=== PATIENT | female | born 1940 | race Caucasian/White ===

== ENCOUNTER → 2016-10-27 | Outpatient (REF) | payer BC, MEDICARE ==
[2016-10-27 12:35] LABS: ALBUMIN 3.7 GM/DL (3.2-5.2); ALBUMIN/GLOBULIN RATIO 1.06 (1.00-1.93); BILIRUBIN,TOTAL 0.4 MG/DL (0.2-1.0); CALCIUM LEVEL 8.4 MG/DL (8.8-10.2); CREATININE FOR GFR 1.05 MG/DL (0.55-1.02); GLOMERULAR FILTRATION RATE 54.5 (>39); POTASSIUM SERUM 4.4 MEQ/L (3.5-5.1); TOTAL PROTEIN 7.2 GM/DL (6.4-8.2)
== END ==
LOC: M SFHCPLAZ 09:58
PROVIDERS: ATTEND Internal Medicine
DX: I10 Essential (primary) hypertension (principal); E78.00 Pure hypercholesterolemia, unspecified; E03.9 Hypothyroidism, unspecified

== ENCOUNTER → 2016-11-26 | Outpatient (CLI) | payer BC, MEDICARE ==
--- NOTE | 2016-11-26 15:21 | REPMRS ---
Patient History The patient states she has not had a clinical breast exam in over a year. Baseline Mammogram Patient is postmenopausal. No known family history of cancer. Digital Woman Screen Mammo: November 26, 2016 - Exam #: [id number] Bilateral CC and MLO view(s) were taken. Technologist: Jeanie Holland, Technologist FINDINGS: There are scattered fibroglandular densities. There is no evidence of dominant mass, architectural distortion, or clustered microcalcification typical of malignancy. ASSESSMENT: BI-RADS/ACR category 1 mammogram. Negative. Recommendation Routine screening mammogram of both breasts in 1 year (for women over age 40). This mammogram was interpreted with the aid of an FDA-approved computer-aided dectection system. Electronically Signed By: Stephon Christensen MD 11/26/16 [id number]
--- NOTE | 2016-11-30 10:16 | DEXA ---
AP SPINE L1 - L4 1.336 1.1 2.9 LT FEMUR TOTAL 0.907 -0.8 0.9 RT FEMUR TOTAL 0.964 -0.3 1.3 TOTAL BODY TOTAL OTHER DUAL FEMUR FRAX* ASSESSMENT Risk factors: History of fracture (adult). 10 year probability of fracture Major osteoporotic fracture 16.3 % Hip fracture 3.2 % COMMENTS: Normal bone densitometry of the spine. There is low bone density of the hips. The density of the spine has increased 18.4% since 04/04/2004. The density of the left hip has decreased 2.5% since 04/04/2004. The density of the right hip has decreased 0.2% since 04/04/2004. FOLLOW-UP: Recommendation for the next bone density exam: 2 years. [facility]
== END ==
LOC: M WHC 13:05
PROVIDERS: ATTEND Internal Medicine
DX: Z12.31 Encounter for screening mammogram for malignant neoplasm of breast (principal); Z13.820 Encounter for screening for osteoporosis; M85.9 Disorder of bone density and structure, unspecified; Z78.0 Asymptomatic menopausal state
CPT/HCPCS: 77080; G0202

== ENCOUNTER → 2017-10-19 | Outpatient (REF) | payer BC, MEDICARE ==
[2017-10-19 15:52] LABS: HEMOGLOBIN 12.1 g/dl (12.0-15.5); MEAN CORPUSCULAR HEMOGLOBIN 30.2 pg (27.0-33.0); MEAN CORPUSCULAR HGB CONC 31.8 g/dl (32.0-36.5); MEAN CORPUSCULAR VOLUME 94.8 fl (80.0-96.0); PLATELET COUNT, AUTOMATED 222 10^3/uL (150-450); RED BLOOD COUNT 4.01 10^6/uL (4.00-5.40); RED CELL DISTRIBUTION WIDTH 12.7 % (11.5-14.5); WHITE BLOOD COUNT 6.7 10^3/uL (4.0-10.0)
[2017-10-19 16:46] LABS: ALBUMIN/GLOBULIN RATIO 1.11 (1.00-1.93); ALKALINE PHOSPHATASE 86 U/L (45-117); ALT/SGPT 15 U/L (12-78); ANION GAP 7 MEQ/L (8-16); AST/SGOT 12 U/L (7-37); BILIRUBIN,TOTAL 0.5 MG/DL (0.2-1.0); BLOOD UREA NITROGEN 24 MG/DL (7-18); CALCIUM LEVEL 8.8 MG/DL (8.8-10.2); CARBON DIOXIDE LEVEL 29 MEQ/L (21-32); CHLORIDE LEVEL 102 MEQ/L (98-107); CHOLESTEROL LEVEL 222 MG/DL (<200); CHOLESTEROL RISK RATIO 4.723 (<5); CREATININE FOR GFR 1.28 MG/DL (0.55-1.30); GLOMERULAR FILTRATION RATE 43.3 (>39); GLUCOSE, FASTING 85 MG/DL (70-100); HDL CHOLESTEROL 47 MG/DL (>40); LDL CHOLESTEROL 145.2 MG/DL (<100); MAGNESIUM LEVEL 2.4 MG/DL (1.8-2.4); NON-HDL-C 175 MG/DL; POTASSIUM SERUM 4.1 MEQ/L (3.5-5.1); SODIUM LEVEL 138 MEQ/L (136-145); TOTAL PROTEIN 7.6 GM/DL (6.4-8.2); TRIGLYCERIDES LEVEL 149 MG/DL (<150)
== END ==
LOC: M SFHCPLAZ 13:00
DX: J30.2 Other seasonal allergic rhinitis (principal); I10 Essential (primary) hypertension; E78.00 Pure hypercholesterolemia, unspecified; E03.9 Hypothyroidism, unspecified
CPT/HCPCS: 83735

== ENCOUNTER → 2017-10-21 | Outpatient (CLI) | payer BC, MEDICARE | LOC: M LRY 15:53 | DX: M51.36 Other intervertebral disc degeneration, lumbar region (principal) | CPT/HCPCS: 72110 ==

== ENCOUNTER → 2017-11-03 | Outpatient (CLI) | payer BC, MEDICARE ==
[~2017-11-03] MED LIST: GASTROGRAFIN SOLUTION 30ML (Q9963) As Ordered; ISOVUE-370 76% 100ML VIAL (Q9967) As Ordered
== END ==
LOC: M RAD 13:05
DX: R14.0 Abdominal distension (gaseous) (principal); R19.4 Change in bowel habit; M54.5 Low back pain; R59.0 Localized enlarged lymph nodes
CPT/HCPCS: Q9963

== ENCOUNTER 2017-12-20 10:59 | Day surgery (SDC) | payer BC ==
[2017-12-20] MEDS ORDERED: LIDOCAINE 2% INJ 100 MG/5 ML SDV (FOR ANES.) As Ordered (11:03)
[2017-12-20] MEDS ORDERED: NS 1,000 ML IV (12:00)
[2017-12-20] MEDS ORDERED: fentaNYL 100 MCG/2 ML INJECTION (J3010) As Ordered (12:11)
[2017-12-20] MEDS ORDERED: PROPOFOL 200 MG/20 ML VIAL As Ordered ×2 (12:12)
== END 2017-12-20 13:34 | disposition home or self-care (01) ==
LOC: M OPP 10:59
DX: D49.0 Neoplasm of unspecified behavior of digestive system (principal); K56.690 Other partial intestinal obstruction; R19.5 Other fecal abnormalities; R93.3 Abnormal findings on diagnostic imaging of other parts of digestive tract; R19.4 Change in bowel habit; R12 Heartburn; K31.89 Other diseases of stomach and duodenum; I10 Essential (primary) hypertension; E03.9 Hypothyroidism, unspecified; Z79.82 Long term (current) use of aspirin; Z79.899 Other long term (current) drug therapy; Z88.8 Allergy status to other drugs, medicaments and biological substances; Z86.718 Personal history of other venous thrombosis and embolism; Z90.89 Acquired absence of other organs; Z78.0 Asymptomatic menopausal state; Z80.51 Family history of malignant neoplasm of kidney; Z82.49 Family history of ischemic heart disease and other diseases of the circulatory system
CPT/HCPCS: 45380

== ENCOUNTER → 2018-01-11 | Outpatient (REF) | payer BC, MEDICARE ==
[2018-01-11 18:35] LABS: BASO # 0.1 10^3/uL (0.0-0.2); EOS # 1.2 10^3/uL (0.0-0.50); EOS % 13.9 % (0.0-3.0); HEMATOCRIT 38.2 % (36.0-47.0); HEMOGLOBIN 12.2 g/dl (12.0-15.5); IMMATURE GRANULOCYTE % 0.2 % (0-3.0); LYMPH # 2.1 10^3/uL (1.5-4.5); LYMPH % 23.3 % (24.0-44.0); MEAN CORPUSCULAR HEMOGLOBIN 29.4 pg (27.0-33.0); MEAN CORPUSCULAR HGB CONC 31.9 g/dl (32.0-36.5); MONO # 0.7 10^3/uL (0.0-0.8); NEUTROPHILS # 4.8 10^3/uL (1.8-7.7); NEUTROPHILS % 53.6 % (36.0-66.0); PLATELET COUNT, AUTOMATED 214 10^3/uL (150-450); RED BLOOD COUNT 4.15 10^6/uL (4.00-5.40); RED CELL DISTRIBUTION WIDTH 12.7 % (11.5-14.5); WHITE BLOOD COUNT 8.9 10^3/uL (4.0-10.0)
[2018-01-11 18:39] LABS: INR 1.05; PROTHROMBIN TIME 13.8 SECONDS (12.1-14.4)
[2018-01-11 18:40] LABS: PARTIAL THROMBOPLASTIN TIME 33.3 SECONDS (25.4-37.6)
[2018-01-11 19:21] LABS: ANION GAP 8 MEQ/L (8-16); BLOOD UREA NITROGEN 27 MG/DL (7-18); CALCIUM LEVEL 8.8 MG/DL (8.8-10.2); CARBON DIOXIDE LEVEL 31 MEQ/L (21-32); CHLORIDE LEVEL 103 MEQ/L (98-107); CREATININE FOR GFR 1.22 MG/DL (0.55-1.30); GLOMERULAR FILTRATION RATE 45.7 (>39); GLUCOSE, FASTING 74 MG/DL (70-100); POTASSIUM SERUM 3.6 MEQ/L (3.5-5.1); SODIUM LEVEL 142 MEQ/L (136-145)
== END ==
LOC: M SFHCPLAZ 15:24
DX: R35.0 Frequency of micturition (principal); Z01.818 Encounter for other preprocedural examination
CPT/HCPCS: 80048

== ENCOUNTER → 2018-01-11 | Outpatient (CLI) | payer BC | LOC: M PLARAD 10:34 | DX: C18.9 Malignant neoplasm of colon, unspecified (principal) | CPT/HCPCS: 78815 ==

== ENCOUNTER 2018-01-13 12:00 | Inpatient (IN) | payer MEDICARE, BC ==
[~2018-01-13 12:00] MED LIST changes: -GASTROGRAFIN SOLUTION 30ML (Q9963) As Ordered; -ISOVUE-370 76% 100ML VIAL (Q9967) As Ordered; +LIDOCAINE 1% MDV 20ML VIAL SQ
[2018-01-13] MEDS: LR 1,000 ML IV ×2 (13:01→18:31)
[2018-01-13] MEDS: BUPIVACAINE/EPIN 0.25% 30 ML VIAL As Ordered (13:17)
[2018-01-13] MEDS ORDERED: MIDAZOLAM INJ 2 MG/2 ML VIAL (J2250) As Ordered (13:30)
[2018-01-13] MEDS ORDERED: fentaNYL 100 MCG/2 ML INJECTION (J3010) As Ordered (13:31)
[2018-01-13] MEDS ORDERED: ROCURONIUM BROMIDE 50 MG/5 ML VIAL As Ordered ×3 (13:31→15:57)
[2018-01-13] MEDS ORDERED: KETOROLAC 60 MG/2 ML VIAL (J1885) As Ordered (13:31)
[2018-01-13] MEDS ORDERED: dexameTHASONE 4 MG/ML 1ML VIAL (J1100) As Ordered (13:31)
[2018-01-13] MEDS ORDERED: PROPOFOL 200 MG/20 ML VIAL As Ordered (13:31)
[2018-01-13] MEDS ORDERED: LIDOCAINE 2% INJ 100 MG/5 ML SDV (FOR ANES.) As Ordered (13:31)
[2018-01-13] MEDS ORDERED: ONDANSETRON 4MG/2ML VIAL (J2405) As Ordered ×3 (13:31→17:09)
[2018-01-13] MEDS: cefoTEtan DISODIUM 2 GM in D5W MINI-BAG PLUS 50 ML IV (14:16)
[2018-01-13] MEDS ORDERED: METOCLOPRAMIDE INJ 10MG/2ML VIAL (J2765) As Ordered (14:20)
[2018-01-13] MEDS ORDERED: HYDROmorphone HCL 2 MG/ML 1ML VIAL (J1170) As Ordered (14:33)
[2018-01-13] MEDS ORDERED: GLYCOPYRROLATE INJ 0.2 MG/ML 2 ML VIAL As Ordered ×2 (15:40)
[2018-01-13] MEDS ORDERED: NEOSTIGMINE 10 MG/10 ML VIAL (J2710) As Ordered (15:40)
[2018-01-13] MEDS: KCL 20MEQ IN D5/0.45NS 1000ML 1,000 ML IV (17:17)
[2018-01-13] MEDS ORDERED: ONDANSETRON 4MG/2ML VIAL (J2405) IV ×2 (17:30→18:00)
[2018-01-13] MEDS ORDERED: MORPHINE 4 MG/ML 1ML VIAL/SYRINGE (J2270) IV (17:30)
[2018-01-13] MEDS ORDERED: ALBUTEROL 90 MCG/ACT 8GM HFA INHALER INH (17:30)
[2018-01-13] MEDS ORDERED: NORCO, ANEXSIA 5/325MG TABLET (HYDROcodone/ACETAMINOPHEN) PO (17:30)
[2018-01-13] MEDS ORDERED: LABETALOL HCL 100 MG/20 ML VIAL As Ordered (17:36)
[2018-01-13] MEDS: hydrALAZINE INJ 20 MG/ML VIAL IV ×6 (17:40→18:15)
[2018-01-13] MEDS: LABETALOL HCL 100 MG/20 ML VIAL IV ×6 (17:40→18:20)
[2018-01-13] MEDS ORDERED: fentaNYL 100 MCG/2 ML INJECTION (J3010) IV (18:00)
[2018-01-13] MEDS ORDERED: MORPHINE 10 MG/ML 1ML VIAL (J2270) IV (18:00)
[2018-01-13] MEDS ORDERED: PROMETHAZINE INJ 25 MG/ML VIAL (J2550) As Ordered (18:18)
[2018-01-13 18:20] LABS: ANION GAP 13 MEQ/L (8-16); BLOOD UREA NITROGEN 21 MG/DL (7-18); CALCIUM LEVEL 8.1 MG/DL (8.8-10.2); CARBON DIOXIDE LEVEL 26 MEQ/L (21-32); CHLORIDE LEVEL 103 MEQ/L (98-107); CREATININE FOR GFR 1.61 MG/DL (0.55-1.30); GLOMERULAR FILTRATION RATE 33.2 (>39); GLUCOSE, FASTING 121 MG/DL (70-100); POTASSIUM SERUM 3.3 MEQ/L (3.5-5.1); SODIUM LEVEL 142 MEQ/L (136-145)
[2018-01-13] MEDS: PROMETHAZINE INJ 25 MG/ML VIAL (J2550) IV (18:37)
[2018-01-13] MEDS: PERCOCET 5MG/325MG TAB PO (18:57)
[2018-01-13] MEDS: KETOROLAC 30 MG/ML VIAL (J1885) IV (20:34)
[2018-01-13] MEDS: SENOKOT S TAB PO (21:20)
[2018-01-13] MEDS: HEPARIN SOD (PORCINE) 5000 UNITS/ML VIAL SC (21:20)
[2018-01-13] MEDS: PANTOPRAZOLE 40MG INJ (PROTONIX) (C9113) IV (23:02)
[2018-01-13] MEDS: KCL 10MEQ/100ML SWI (KRUN) 10 MEQ in APPROPRIATE DILUENT 1 EA IV (23:03)
[2018-01-14] MEDS: KCL 10MEQ/100ML SWI (KRUN) 10 MEQ in APPROPRIATE DILUENT 1 EA IV ×2 (00:09→01:18)
[2018-01-14] MEDS: cefoTEtan DISODIUM 2 GM in D5W MINI-BAG PLUS 50 ML IV ×2 (02:23→15:09)
[2018-01-14] MEDS: KCL 20MEQ IN D5/0.45NS 1000ML 1,000 ML IV ×3 (02:58→21:15)
[2018-01-14] MEDS: HEPARIN SOD (PORCINE) 5000 UNITS/ML VIAL SC ×3 (05:13→21:15)
[2018-01-14] MEDS: LEVOTHYROXINE 125MCG TABLET (0.125MG) PO (05:13)
[2018-01-14 05:45] LABS: HEMATOCRIT 31.3 % (36.0-47.0); HEMOGLOBIN 10.4 g/dl (12.0-15.5); MEAN CORPUSCULAR HEMOGLOBIN 29.5 pg (27.0-33.0); MEAN CORPUSCULAR HGB CONC 33.2 g/dl (32.0-36.5); MEAN CORPUSCULAR VOLUME 88.7 fl (80.0-96.0); PLATELET COUNT, AUTOMATED 199 10^3/uL (150-450); RED BLOOD COUNT 3.53 10^6/uL (4.00-5.40); RED CELL DISTRIBUTION WIDTH 12.8 % (11.5-14.5); WHITE BLOOD COUNT 12.6 10^3/uL (4.0-10.0)
[2018-01-14 06:08] LABS: ANION GAP 8 MEQ/L (8-16); BLOOD UREA NITROGEN 20 MG/DL (7-18); CALCIUM LEVEL 7.8 MG/DL (8.8-10.2); CARBON DIOXIDE LEVEL 28 MEQ/L (21-32); CHLORIDE LEVEL 103 MEQ/L (98-107); CREATININE FOR GFR 1.75 MG/DL (0.55-1.30); GLOMERULAR FILTRATION RATE 30.2 (>39); GLUCOSE, FASTING 179 MG/DL (70-100); MAGNESIUM LEVEL 2.1 MG/DL (1.8-2.4); POTASSIUM SERUM 3.7 MEQ/L (3.5-5.1); SODIUM LEVEL 139 MEQ/L (136-145)
[2018-01-14] MEDS: hydroCHLOROthiazide 12.5 MG CAPSULE PO (09:49)
[2018-01-14] MEDS: SENOKOT S TAB PO ×2 (09:49→21:15)
[2018-01-14] MEDS: KETOROLAC 30 MG/ML VIAL (J1885) IV (10:29)
[2018-01-14 11:24] LABS: BEDSIDE GLUCOSE 132 MG/DL (83-110)
[2018-01-14] MEDS: ACETAMINOPHEN TAB 650MG DOSE (2X325MG) PO (15:09)
[2018-01-14] MEDS: PANTOPRAZOLE 40MG INJ (PROTONIX) (C9113) IV (19:03)
[2018-01-15] MEDS: cefoTEtan DISODIUM 2 GM in D5W MINI-BAG PLUS 50 ML IV (02:09)
[2018-01-15] MEDS: KCL 20MEQ IN D5/0.45NS 1000ML 1,000 ML IV ×2 (06:00→06:29)
[2018-01-15 06:07] LABS: HEMOGLOBIN 10.6 g/dl (12.0-15.5); MEAN CORPUSCULAR HGB CONC 32.1 g/dl (32.0-36.5); MEAN CORPUSCULAR VOLUME 90.4 fl (80.0-96.0); PLATELET COUNT, AUTOMATED 199 10^3/uL (150-450); RED BLOOD COUNT 3.65 10^6/uL (4.00-5.40); RED CELL DISTRIBUTION WIDTH 12.9 % (11.5-14.5); WHITE BLOOD COUNT 9.3 10^3/uL (4.0-10.0)
[2018-01-15 06:21] LABS: ANION GAP 7 MEQ/L (8-16); BLOOD UREA NITROGEN 14 MG/DL (7-18); CARBON DIOXIDE LEVEL 29 MEQ/L (21-32); CHLORIDE LEVEL 108 MEQ/L (98-107); CREATININE FOR GFR 1.55 MG/DL (0.55-1.30); GLOMERULAR FILTRATION RATE 34.7 (>39); GLUCOSE, FASTING 113 MG/DL (70-100); POTASSIUM SERUM 4.1 MEQ/L (3.5-5.1); SODIUM LEVEL 144 MEQ/L (136-145)
[2018-01-15] MEDS: LEVOTHYROXINE 125MCG TABLET (0.125MG) PO (06:29)
[2018-01-15] MEDS: HEPARIN SOD (PORCINE) 5000 UNITS/ML VIAL SC ×3 (06:29→21:37)
[2018-01-15] MEDS: KETOROLAC 30 MG/ML VIAL (J1885) IV (06:30)
[2018-01-15] MEDS: hydroCHLOROthiazide 12.5 MG CAPSULE PO (08:55)
[2018-01-15] MEDS: SENOKOT S TAB PO ×2 (08:55→21:37)
[2018-01-15] MEDS: ACETAMINOPHEN TAB 650MG DOSE (2X325MG) PO ×2 (11:37→18:02)
[2018-01-16] MEDS: LEVOTHYROXINE 125MCG TABLET (0.125MG) PO (05:27)
[2018-01-16] MEDS: HEPARIN SOD (PORCINE) 5000 UNITS/ML VIAL SC ×3 (05:28→21:13)
[2018-01-16] MEDS: ACETAMINOPHEN TAB 650MG DOSE (2X325MG) PO ×3 (05:46→21:15)
[2018-01-16] MEDS: hydroCHLOROthiazide 12.5 MG CAPSULE PO (08:24)
[2018-01-16] MEDS: SENOKOT S TAB PO ×2 (08:24→21:13)
[2018-01-16] MEDS ORDERED: NORCO, ANEXSIA 5/325MG TABLET (HYDROcodone/ACETAMINOPHEN) PO (13:30)
[2018-01-17] MEDS: HEPARIN SOD (PORCINE) 5000 UNITS/ML VIAL SC ×2 (06:14→14:00)
[2018-01-17] MEDS: ACETAMINOPHEN TAB 650MG DOSE (2X325MG) PO (06:14)
[2018-01-17] MEDS: LEVOTHYROXINE 125MCG TABLET (0.125MG) PO (06:14)
[2018-01-17 06:36] LABS: HEMATOCRIT 33.3 % (36.0-47.0); HEMOGLOBIN 10.8 g/dl (12.0-15.5); MEAN CORPUSCULAR HEMOGLOBIN 29.3 pg (27.0-33.0); MEAN CORPUSCULAR HGB CONC 32.4 g/dl (32.0-36.5); MEAN CORPUSCULAR VOLUME 90.5 fl (80.0-96.0); PLATELET COUNT, AUTOMATED 213 10^3/uL (150-450); RED BLOOD COUNT 3.68 10^6/uL (4.00-5.40); WHITE BLOOD COUNT 6.1 10^3/uL (4.0-10.0)
[2018-01-17 06:52] LABS: ANION GAP 7 MEQ/L (8-16); BLOOD UREA NITROGEN 12 MG/DL (7-18); CALCIUM LEVEL 8.4 MG/DL (8.8-10.2); CARBON DIOXIDE LEVEL 28 MEQ/L (21-32); CHLORIDE LEVEL 110 MEQ/L (98-107); CREATININE FOR GFR 0.85 MG/DL (0.55-1.30); GLOMERULAR FILTRATION RATE > 60.0 (>39); GLUCOSE, FASTING 85 MG/DL (70-100); MAGNESIUM LEVEL 2.1 MG/DL (1.8-2.4); POTASSIUM SERUM 4.3 MEQ/L (3.5-5.1); SODIUM LEVEL 145 MEQ/L (136-145)
[2018-01-17] MEDS: SENOKOT S TAB PO (09:21)
[2018-01-17] MEDS: hydroCHLOROthiazide 12.5 MG CAPSULE PO (09:21)
== END 2018-01-17 16:30 | disposition home or self-care (01) | DRG 331 ==
LOC: M OR 12:00 → M MS5PR 19:35
PROC: 0DBN4ZZ Excision of Sigmoid Colon, Percutaneous Endoscopic Approach (ICD-10-PCS; principal; 2018-01-13 13:30)
DX: C18.7 Malignant neoplasm of sigmoid colon (principal); I10 Essential (primary) hypertension; E03.9 Hypothyroidism, unspecified; E78.00 Pure hypercholesterolemia, unspecified; Z79.899 Other long term (current) drug therapy; Z79.82 Long term (current) use of aspirin

== ENCOUNTER → 2018-01-21 | Outpatient (CLI) | payer BC, MEDICARE ==
[~2018-01-21] MED LIST changes: +LIDOCAINE 1% MDV 20ML VIAL As Ordered; -LIDOCAINE 1% MDV 20ML VIAL SQ
== END ==
LOC: M RADPRO 11:23
DX: C77.3 Secondary and unspecified malignant neoplasm of axilla and upper limb lymph nodes (principal); I10 Essential (primary) hypertension; E78.5 Hyperlipidemia, unspecified; E03.9 Hypothyroidism, unspecified; R35.0 Frequency of micturition; Z79.899 Other long term (current) drug therapy; Z88.8 Allergy status to other drugs, medicaments and biological substances
CPT/HCPCS: 38505

== ENCOUNTER → 2018-02-01 | Outpatient (REF) | payer BC, MEDICARE ==
[2018-02-01 11:36] LABS: INR 1.02; PARTIAL THROMBOPLASTIN TIME 30.5 SECONDS (25.4-37.6); PROTHROMBIN TIME 13.5 SECONDS (12.1-14.4)
== END ==
LOC: M LAB REF 10:45
DX: C18.7 Malignant neoplasm of sigmoid colon (principal); R59.0 Localized enlarged lymph nodes; Z01.818 Encounter for other preprocedural examination
CPT/HCPCS: 85610

== ENCOUNTER → 2018-02-03 | Outpatient (CLI) | payer BC, MEDICARE ==
[~2018-02-03] MED LIST changes: -LIDOCAINE 1% MDV 20ML VIAL As Ordered; +LIDOCAINE 2% MDV 20 ML VIAL As Ordered; +ceFAZolin 1GM INJ (J0690 PER 500MG) As Ordered
== END | disposition home or self-care (01) ==
LOC: M IRPRO 12:02
DX: C18.9 Malignant neoplasm of colon, unspecified (principal); C79.9 Secondary malignant neoplasm of unspecified site
CPT/HCPCS: 36561

== ENCOUNTER → 2018-02-15 | Outpatient (REF) | payer BC | LOC: M LAB REF 13:29 | DX: C18.7 Malignant neoplasm of sigmoid colon (principal); R59.0 Localized enlarged lymph nodes; C79.89 Secondary malignant neoplasm of other specified sites; C77.3 Secondary and unspecified malignant neoplasm of axilla and upper limb lymph nodes | CPT/HCPCS: 82378 ==

== ENCOUNTER → 2018-05-27 | Outpatient (CLI) | payer BC ==
[~2018-05-27] MED LIST changes: +ASPI1TAB PO; +GASTROGRAFIN SOLUTION 30ML (Q9963) As Ordered ONE; +HYDR25TAB PO; +IBUP200T45 PO; +ISOVUE-370 76% 100ML VIAL (Q9967) As Ordered ONE; +LEVA1TAB2 PO; +LEVO125T4 PO; -LIDOCAINE 2% MDV 20 ML VIAL As Ordered; +MIRA3350 PO; +PROAAER10 INH; -ceFAZolin 1GM INJ (J0690 PER 500MG) As Ordered
--- NOTE | 2018-06-01 07:02 | REP ---
Clinical: Colon cancer. Technique: Axial noncontrast images from the thoracic inlet to the upper abdomen with coronal and sagittal re-formations. Findings: The bilateral lung reulas are relatively well aerated and without acute consolidation, obvious nodule or mass lesion. No pleural effusion. No pneumothorax. Tracheobronchial tree is patent. Mediastinum demonstrates mild atherosclerotic changes to the thoracic aorta. Heart and pericardium appear normal. Wshzgm-V-Twqm identified with tip in the right atrium. No obvious adenopathy is appreciated. The hypermetabolic lymph nodes on recent PET scan at the thoracic inlet and left axillary region are not enlarged by CT evaluation. Surrounding musculoskeletal structures are intact without focal osseous abnormality. Impression: 1. No obvious acute mediastinal or pleuroparenchymal process. 2. No evidence for metastatic disease. 3. The hypermetabolic lymph nodes at the thoracic inlet and left axillary region on recent PET-CT are not enlarged by current examination. The the show for Electronically Signed by Pedrito Ortiz MD 06/01/2018 06:53 A
--- NOTE | 2018-06-01 07:03 | REP ---
Clinical: Colon cancer. Technique: Axial noncontrast images from the lung bases to the pubic symphysis with coronal and sagittal re-formations. Comparison: 11/03/2017. Findings: Examination is significantly limited by noncontrast evaluation. Lung bases are clear. Hepatic and splenic calcifications suggest prior granulomatous disease remain stable. No obvious focal hepatic or splenic lesion otherwise identified. Pancreas, gallbladder, bilateral adrenal glands and kidneys are normal for noncontrast evaluation. The enteric system is without obstruction or acute inflammatory process. There is evidence for partial resection and anastomoses at the sigmoid level. Normal terminal ileum and appendix are identified in the right lower quadrant. Fat containing ventral hernia also contains nonobstructed loops of small bowel and represents a new finding compared to prior examination. Hernia sac measures approximately 6.7 cm maximal diameter. Pelvis demonstrates normal bladder and age-appropriate uterus/adnexa. No ascites. No free air. No obvious intraperitoneal or retroperitoneal adenopathy. The previously noted para-aortic adenopathy has resolved. Osseous structures are intact and without focal osseous abnormality. Impression: 1. Evidence for prior partial sigmoid resection and anastomoses as well as possible retroperitoneal lymph node dissection. Previously noted periaortic lymph nodes have regressed. 2. New ventral hernia containing fat and nonobstructed small bowel measures approximately 6.7 cm maximal diameter. 3. No further acute abdominopelvic pathology appreciated. Electronically Signed by Pedrito Ortiz MD 06/01/2018 06:55 A
== END ==
LOC: M RAD 15:09
PROVIDERS: ATTEND Nurse Practitioner Family
DX: C18.9 Malignant neoplasm of colon, unspecified (principal); K43.9 Ventral hernia without obstruction or gangrene
CPT/HCPCS: 71250; 74176; Q9963

== ENCOUNTER → 2018-08-24 | Outpatient (CLI) | payer BC ==
[~2018-08-24] MED LIST changes: -ASPI1TAB PO; +ASPI81TA26 PO; -GASTROGRAFIN SOLUTION 30ML (Q9963) As Ordered ONE; -ISOVUE-370 76% 100ML VIAL (Q9967) As Ordered ONE
--- NOTE | 2018-08-24 14:48 | REP ---
PET/CT: History: Adenocarcinoma of the sigmoid colon. The patient on chemotherapy. Comparisons: Comparison PET/CT study January 11, 2018. Prior PET/CT study showed that hypermetabolic adenopathy in the left supraclavicular, left axillary, retroperitoneal and left iliac lymph node chains. TECHNIQUE: 47 minutes following the intravenous injection of a 9.47 mCi dose of F-18 FDG, three-dimensional PET scintigraphy is acquired from the skull base to the proximal thighs. Triplanar noncontrast CT scanning is acquired through the same anatomic range for attenuation correction, and image registration with scan parameters optimized to minimize radiation exposure to the patient. PET scintigraphy and CT datasets were fused and displayed on a workstation with multiplanar and projection display capability. PET/CT Findings: Overall, there is considerable improvement. There is a diffuse increased marrow uptake pattern consistent with rebound marrow associated with chemotherapy. There is no longer discernible adenopathy or hypermetabolic uptake in the periaortic and iliac region of the retroperitoneum. The left supraclavicular adenopathy is similarly resolved. No head and neck hypermetabolic uptake is seen. The left axillary adenopathy is much improved. Minimally hypermetabolic uptake is seen in a remaining normal-sized left axillary lymph node with maximum standard uptake value 2.66. Previous maximum standard uptake value was 15. The superior mediastinal srinivasan foci are no longer apparent. There is however a new mildly enlarged hypermetabolic lymph node in the right pretracheal region of the mediastinum on today's PET/CT. Maximum standard uptake value here is 10.53. There is a lymph node measures 21 x 15 mm. No other abnormal hypermetabolic uptake is seen. Impression: The previously noted lymph node foci are all improved or resolved. There is a new hypermetabolic mediastinal lymph node in the right pretracheal space. Electronically Signed by Deepak Christensen MD 08/24/2018 02:58 P
== END ==
LOC: M PLARAD 11:10
PROVIDERS: ATTEND Internal Medicine Hematology & Oncology
DX: C18.7 Malignant neoplasm of sigmoid colon (principal)
CPT/HCPCS: 78815; A9552

== ENCOUNTER 2018-09-19 10:21 | Day surgery (SDC) | payer BC ==
[~2018-09-19] VITALS: Ht 157.5 cm; Wt 92.0 kg
[~2018-09-19 10:21] MED LIST changes: +LIDOCAINE 1% MDV 20ML VIAL SQ PRN; +LIDOCAINE 2% INJ 100 MG/5 ML SDV (FOR ANES.) As Ordered ONE; +MIDAZOLAM INJ 2 MG/2 ML VIAL (J2250) As Ordered ONE; +ONDANSETRON 4MG/2ML VIAL (J2405) As Ordered ONE; +PROPOFOL 200 MG/20 ML VIAL As Ordered ONE; +ROCURONIUM BROMIDE 50 MG/5 ML VIAL As Ordered ONE; +dexameTHASONE 4 MG/ML 1ML VIAL (J1100) As Ordered ONE; +fentaNYL 250 MCG/5 ML INJECTION (J3010) As Ordered ONE
[2018-09-19] MEDS ORDERED: LR 1,000 ML IV ONE (10:30)
[2018-09-19] MEDS ORDERED: THROMBIN SOLN 5,000 UNITS VIAL As Ordered ONE (11:42)
[2018-09-19] MEDS ORDERED: LIDOCAINE 1% SDV INJ 30 ML VIAL As Ordered ONE (11:43)
[2018-09-19] MEDS ORDERED: CETACAINE SPRAY 5GM As Ordered ONE ×2 (11:43→12:37)
[2018-09-19] MEDS ORDERED: EPINEPHrine 1MG/10ML SYRINGE 1.5IN As Ordered ONE (11:43)
[2018-09-19] MEDS ORDERED: LIDOCAINE VISCOUS 2% SOLN 15ML UDC As Ordered ONE (11:43)
[2018-09-19] MEDS ORDERED: SUGAMMADEX SODIUM 500 MG/5 ML VIAL (BRIDION) As Ordered ONE (12:18)
[2018-09-19] MEDS ORDERED: ePHEDrine SULFATE 25 MG/5 ML(5MG/ML) SYRINGE As Ordered ONE (12:26)
[2018-09-19] MEDS ORDERED: IPRATROPIUM 0.5MG/ALBUTEROL 2.5MG INH SOL UD 3ML (DUONEB)(J7620) As Ordered ONE (13:40)
[2018-09-19] MEDS ORDERED: LR 1,000 ML IV SCH (13:45)
[2018-09-19] MEDS ORDERED: PERCOCET 5MG/325MG TAB PO PRN (13:45)
[2018-09-19] MEDS ORDERED: ONDANSETRON 4MG/2ML VIAL (J2405) IV PRN (13:45)
[2018-09-19] MEDS ORDERED: fentaNYL 100 MCG/2 ML INJECTION (J3010) IV PRN (13:45)
--- NOTE | 2018-09-19 13:57 | REP ---
Chest one-view HISTORY: Pneumothorax Comparison: 03/01/202002/04 The lungs are clear. The heart is normal in size. The pulmonary vasculature is normal in appearance. An Yfmnrn-A-Vqyf catheter is present. Impression: No acute disease. Electronically Signed by Froilan Hope MD 09/19/2018 01:49 P
[2018-09-19] MEDS ORDERED: IPRATROPIUM 0.5MG/ALBUTEROL 2.5MG INH SOL UD 3ML (DUONEB)(J7620) NEB ONE (14:00)
[2018-09-19] MEDS ORDERED: AZITHROMYCIN INJ 500 MG, VIAL MATE ADAPTER 1 EACH in D5W 250 ML IV ONE (14:00)
[2018-09-19] MEDS ORDERED: D5W 250ML BAG As Ordered ONE ×2 (14:23→14:24)
--- NOTE | 2018-09-19 15:07 | RO ---
DATE OF PROCEDURE: 09/19/2018 PREOPERATIVE DIAGNOSIS: Abnormal chest CT 4R node, PET avid. POSTPROCEDURE DIAGNOSIS: Abnormal chest CT 4R node, PET avid. FINDINGS: Mucus in the airways. PROCEDURE: Bronchoscopy with endobronchial ultrasound. PROCEDURALIST: Dr. Frederick CUSTOMER QUALITY SPECIALIST: KAREN Koenig ANESTHESIA: General. Please refer to their notes for details. ESTIMATED BLOOD LOSS: Less than 5 mL. DRAINS: No drains. SPECIMENS OBTAINED: 1. Left mainstem bronchial wash sent for Gram stain and culture. 2. FNA 4R node. COMPLICATIONS: No observed complications thus far. DESCRIPTION OF PROCEDURE: Informed consent was reviewed with the patient in the preoperative area and went back to OR #2. General anesthesia was initiated with an 8.5 endotracheal tube. The case was then handed over to me. Time-out was performed with two patient identifiers, identifying correct site, correct procedure. Cetacaine spray was then used to anesthetize the airway and provide lubrication for the 1T190 scope, which was then inserted into the endotracheal tube. Upon insertion of the bronchoscope, there was copious amounts of thick white to yellow mucus. This was suctioned. Some of it was tenacious, extending from left mainstem. Erin was fairly sharp. Right and left mainstem were normal except for the amounts of mucus. All airways were suctioned. RB 1 through 10 was inspected without endobronchial lesions. LB 1 through 10 was also inspected without endobronchial lesions. The bronchoscope was then removed and endobronchial ultrasound was inserted and viewing of the 4R node was obtained. The node itself was irregular, appeared necrotic. Approximately 1 cm in largest dimension. Multiple fine needle aspirations with a 21-22-gauge needle was then performed. On-site cytology suggested abnormal cells; however, the quantity of cells was lacking. Additional samples were obtained with multiple passes without significant tissue. Therefore, I switched to an 19 gauge needle and this did not seem to yield any additional tissue. Therefore, I switched to a 25 gauge needle, which did allow for more fluid but not a lot of significant tissue. After multiple passes with all needles, the procedure was stopped. The endobronchial ultrasound was removed and the 1T 180 bronchoscope was then inserted. All airways were suctioned. Hemostasis was assured, and the bronchoscope was removed. The patient was extubated and in recovery awaiting chest x-ray. There were no observed complications thus far. Because of copious amounts of mucus, I believe the patient recently developed a respiratory infection. We will treat with antibiotics. We will await the results of the FNA, likely metastatic disease from colon malignancy.
[2018-09-19 16:00] VITALS: BP 133/58
== END 2018-09-19 16:45 | disposition home or self-care (01) ==
LOC: M SDC 10:21
PROVIDERS: ATTEND Internal Medicine Pulmonary Disease
DX: C34.02 Malignant neoplasm of left main bronchus (principal); C78.5 Secondary malignant neoplasm of large intestine and rectum; R91.8 Other nonspecific abnormal finding of lung field; R93.7 Abnormal findings on diagnostic imaging of other parts of musculoskeletal system; R59.0 Localized enlarged lymph nodes; I10 Essential (primary) hypertension; E03.9 Hypothyroidism, unspecified; D64.9 Anemia, unspecified; K21.9 Gastro-esophageal reflux disease without esophagitis; R51 Headache; J45.909 Unspecified asthma, uncomplicated; R35.0 Frequency of micturition; E66.9 Obesity, unspecified; Z68.37 Body mass index [BMI] 37.0-37.9, adult; Z88.8 Allergy status to other drugs, medicaments and biological substances; Z79.899 Other long term (current) drug therapy; Z87.891 Personal history of nicotine dependence; Z92.21 Personal history of antineoplastic chemotherapy; Z78.0 Asymptomatic menopausal state; Z96.1 Presence of intraocular lens; Z98.41 Cataract extraction status, right eye; Z98.42 Cataract extraction status, left eye; Z87.81 Personal history of (healed) traumatic fracture; Z75.5 Holiday relief care
CPT/HCPCS: 31652; 71045; 87070; 87205; 88173; 88305; 88313; 88342; J0456; J1100; J2250; J2405; J3010

== ENCOUNTER 2018-10-24 00:58 | Emergency (ER) | payer BC ==
[~2018-10-24] VITALS: Ht 157.5 cm; Wt 87.3 kg
[~2018-10-24 00:58] MED LIST changes: -LIDOCAINE 1% MDV 20ML VIAL SQ PRN; -LIDOCAINE 2% INJ 100 MG/5 ML SDV (FOR ANES.) As Ordered ONE; -MIDAZOLAM INJ 2 MG/2 ML VIAL (J2250) As Ordered ONE; -ONDANSETRON 4MG/2ML VIAL (J2405) As Ordered ONE; -PROPOFOL 200 MG/20 ML VIAL As Ordered ONE; -ROCURONIUM BROMIDE 50 MG/5 ML VIAL As Ordered ONE; -dexameTHASONE 4 MG/ML 1ML VIAL (J1100) As Ordered ONE; -fentaNYL 250 MCG/5 ML INJECTION (J3010) As Ordered ONE
[2018-10-24 01:35] LABS: BASO # 0.1 10^3/uL (0.0-0.2); BASO % 0.5 % (0.0-1.0); EOS # 0.5 10^3/uL (0.0-0.50); EOS % 4.6 % (0.0-3.0); HEMATOCRIT 32.1 % (36.0-47.0); HEMOGLOBIN 10.2 g/dl (12.0-15.5); LYMPH # 0.8 10^3/uL (1.5-4.5); LYMPH % 7.4 % (24.0-44.0); MEAN CORPUSCULAR HEMOGLOBIN 32.7 pg (27.0-33.0); MEAN CORPUSCULAR HGB CONC 31.8 g/dl (32.0-36.5); MEAN CORPUSCULAR VOLUME 102.9 fl (80.0-96.0); MONO # 0.8 10^3/uL (0.0-0.8); MONO % 7.3 % (0.0-5.0); NEUTROPHILS # 8.7 10^3/uL (1.8-7.7); NEUTROPHILS % 79.8 % (36.0-66.0); PLATELET COUNT, AUTOMATED 202 10^3/uL (150-450); RED BLOOD COUNT 3.12 10^6/uL (4.00-5.40); WHITE BLOOD COUNT 10.8 10^3/uL (4.0-10.0)
[2018-10-24 01:49] LABS: BLOOD UREA NITROGEN 39 MG/DL (7-18); CALCIUM LEVEL 8.4 MG/DL (8.8-10.2); CARBON DIOXIDE LEVEL 25 MEQ/L (21-32); CHLORIDE LEVEL 104 MEQ/L (98-107); CK-MB VALUE MASS < 1.0 NG/ML (<3.6); CPK CREATINE PHOSPHOKINASE 52 U/L (26-192); CREATININE FOR GFR 1.69 MG/DL (0.55-1.30); GLOMERULAR FILTRATION RATE 31.3 (>39); GLUCOSE, FASTING 125 MG/DL (70-100); MB/CK RELATIVE INDEX 1.92 (< OR =4); POTASSIUM SERUM 4.6 MEQ/L (3.5-5.1); SODIUM LEVEL 139 MEQ/L (136-145); TROPONIN I < 0.02 NG/ML (< 0.10)
--- NOTE | 2018-10-24 02:10 | REP ---
Clinical: Chest pain . Comparison: 09/19/2018 . Findings: Right-sided Vnqxau-Y-Smqh with tip in the right atrium remain stable. The mediastinum and cardiac silhouette are stable and within normal limits for portable technique. The lung ruelas are clear without acute consolidation, effusion, or pneumothorax. Skeletal structures are intact. Impression: No acute cardiopulmonary process appreciated. Electronically Signed by Pedrito Ortiz MD 10/24/2018 02:01 A
[2018-10-24] MEDS ORDERED: methylPREDNISolone INJ 125 MG/2 ML VIAL (J2930) IV ONE (02:45)
[2018-10-24] MEDS ORDERED: IPRATROPIUM 0.5MG/ALBUTEROL 2.5MG INH SOL UD 3ML (DUONEB)(J7620) NEB ONE (02:45)
--- NOTE | 2018-10-24 03:41 | REPVR ---
EXAM: CT Chest Without Contrast EXAM DATE/TIME: 10/24/2018 2:51 AM CLINICAL HISTORY: 78 years old, female; Signs and symptoms; Cough and shortness of breath; Additional info: Cough, SOB TECHNIQUE: Imaging protocol: Axial computed tomography images of the chest without intravenous contrast. Coronal and sagittal reformatted images were created and reviewed. 3D rendering: MIP reconstructed images were created and reviewed. Radiation optimization: All CT scans at this facility use at least one of these dose optimization techniques: automated exposure control; mA and/or kV adjustment per patient size (includes targeted exams where dose is matched to clinical indication); or iterative reconstruction. COMPARISON: CT Chest without contrast 05/27/2018 5:17 PM FINDINGS: Tubes, catheters and devices: Right internal jugular Port-A-Cath extending into the right atrium. Lungs: Minimal bilateral lower lobe fibro-atelectatic change, greatest in the posterior right lower lobe. Pleural space: Normal. No pneumothorax. No pleural effusion. Heart: Minimal pericardial effusion. Pulmonary arteries: The main pulmonary artery measures 36 mm. Aorta: The ascending thoracic aorta measures 37 mm. Lymph nodes: Small mediastinal nodes which are within normal limits. Borderline bilateral axillary nodes which demonstrate surrounding induration. Bones/joints: Unremarkable. No acute fracture. Soft tissues: Unremarkable. Liver: Hepatic calcifications. Kidneys and ureters: Left perinephric induration with moderate left hydronephrosis. IMPRESSION: 1. Minimal bilateral lower lobe fibro-atelectatic change, increased in the posterior right lower lobe since 05/27/2018. 2. Right Port-A-Cath extending into the right atrium which is similar. 3. Minimal pericardial effusion which is new. 4. Borderline bilateral axillary nodes which are increased since the prior study with new surrounding perinodal induration. 5. Hepatic calcifications which are unchanged. 6. Left perinephric induration with left hydronephrosis which is new consistent with interval left obstructive uropathy of uncertain etiology. Electronically signed by: Vamshi Carrillo On 10/24/2018 03:40:35 AM
[2018-10-24 05:45] VITALS: BP 138/74
[2018-10-24] MEDS ORDERED: AZITHROMYCIN 250 MG TAB PO ONE (05:45)
[2018-10-24] MEDS ORDERED: AZIT-12 PO (05:58)
[2018-10-24] MEDS ORDERED: PRED20TA PO (05:58)
--- NOTE | 2018-10-24 06:35 | ED PDOC ---
Post-Departure Follow-Up dr soria faxed ct chest for fu Raven Gotti MD Oct 24, 2018 06:35
--- NOTE | 2018-10-24 15:14 | ECGEPIP ---
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
== END 2018-10-24 06:11 | disposition home or self-care (01) ==
LOC: M ED 00:58
DX: J20.9 Acute bronchitis, unspecified (principal); I10 Essential (primary) hypertension; Z85.030 Personal history of malignant carcinoid tumor of large intestine; Z95.828 Presence of other vascular implants and grafts; I31.3 Pericardial effusion (noninflammatory); Z79.899 Other long term (current) drug therapy; Z88.8 Allergy status to other drugs, medicaments and biological substances
CPT/HCPCS: 36415; 71045; 71250; 80048; 82550; 82553; 84484; 85025; 93005; 93041; 94640; 94760; 96374; 99285; J2930

== ENCOUNTER → 2018-10-25 | Outpatient (CLI) | payer BC ==
[~2018-10-25] MED LIST changes: +AZIT-12 PO; +GASTROGRAFIN SOLUTION 30ML (Q9963) As Ordered ONE; +PRED20TA PO
--- NOTE | 2018-10-26 04:50 | REP ---
Clinical: Colon cancer for restaging. Technique: Axial noncontrast images from the thoracic inlet to the upper abdomen with coronal and sagittal re-formations. Comparison: 05/27/2018. Findings: Small area of linear plate-like atelectasis in the right lower lobe. No further consolidation, nodule or mass lesion appreciated. Evaluation of the mediastinum is limited due to the lack of contrast, but mild pretracheal mediastinal adenopathy appears to be increased from prior examination with lymph nodes measuring up to approximately 16 mm. Bilateral axillary adenopathy is also identified with subcutaneous fat stranding and lymph nodes measuring up to 14 mm. Atherosclerotic changes to the thoracic aorta noted without aneurysm. Heart and pericardium are relatively normal / stable. Musculoskeletal structures are intact. Limited evaluation of the upper abdomen demonstrates left hydronephrosis. Bilateral adrenal glands appear normal. Impression: 1. Small area of linear atelectasis in the right lower lobe. 2. Mediastinal and axillary adenopathy appears increased. 3. Left renal hydronephrosis incompletely evaluated. Electronically Signed by Pedrito Ortiz MD 10/26/2018 04:40 A
--- NOTE | 2018-10-26 05:06 | REP ---
Clinical: Colon cancer for restaging. Technique: Axial noncontrast images from the lung bases to the pubic symphysis with coronal and sagittal re-formations. Comparison: 05/27/2018 Findings: Lung bases demonstrate linear atelectasis in the right lower lobe. Chronic hepatic and splenic calcifications are unchanged. Gallbladder, pancreas, bilateral adrenal glands and right kidney appear normal for noncontrast evaluation. Moderate acute left hydroureteronephrosis is appreciated extending into the left cha pelvis without definite definable cause for obstruction although ureteral scarring within the left cha pelvis in the area of chronic fatty infiltration may be related cause. There is no evidence for bowel obstruction. There is a moderate ventral hernia containing nonobstructed loops of small and large bowel. Sigmoid diverticulosis noted without acute diverticulitis. Prior partial resection and anastomoses at the rectosigmoid level is identified. Evaluation of the pelvis demonstrates normal bladder and age-appropriate uterus/adnexa. Fat stranding within the left cha pelvis extending into the left inguinal region is appreciated and possibly related to prior surgery or radiation therapy. Subtle pelvic adenopathy cannot definitively be excluded. No ascites. No obvious retroperitoneal adenopathy. No obvious focal mass lesion. Abdominal aorta demonstrates atherosclerotic changes without aneurysm. Osseous structures demonstrate age-related degenerative changes. Impression: 1. New findings include moderate left hydroureteronephrosis extending into the left cha pelvis without obstructing calculus. Obstruction may be due to ureteral scarring within the left cha pelvis or adjacent subtle adenopathy which cannot be excluded. Evaluation is limited by the lack of contrast enhancement. 2. Moderate ventral hernia has increased from prior examination and contains mesenteric fat as well as nonobstructed loops of small and large bowel. 3. No ascites. Evaluation for adenopathy is limited by the lack of intravenous contrast enhancement. Electronically Signed by Pedrito Ortiz MD 10/26/2018 04:57 A
== END ==
LOC: M RAD 09:24
PROVIDERS: ATTEND Internal Medicine Medical Oncology
DX: C34.02 Malignant neoplasm of left main bronchus (principal); C78.5 Secondary malignant neoplasm of large intestine and rectum; C77.3 Secondary and unspecified malignant neoplasm of axilla and upper limb lymph nodes; C79.89 Secondary malignant neoplasm of other specified sites; N13.30 Unspecified hydronephrosis
CPT/HCPCS: 71250; 74176; Q9963

== ENCOUNTER → 2018-11-14 | Outpatient (REF) | payer BC ==
[~2018-11-14] MED LIST changes: -GASTROGRAFIN SOLUTION 30ML (Q9963) As Ordered ONE
[2018-11-14 18:24] LABS: APPEARANCE, URINE CLEAR (CLEAR); BACTERIA, URINE AUTO NEGATIVE (NEGATIVE); BILIRUBIN, URINE AUTO NEGATIVE (NEGATIVE); BLOOD, URINE BLOOD NEGATIVE (NEGATIVE); COLOR, URINE YELLOW (YELLOW); GLUCOSE, URINE (UA) AUTO NEGATIVE (NEGATIVE); KETONE, URINE AUTO NEGATIVE (NEGATIVE); LEUKOCYTE ESTERASE, URINE AUTO NEGATIVE (NEGATIVE); NITRITE, URINE AUTO NEGATIVE (NEGATIVE); PROTEIN, URINE AUTO NEGATIVE (NEGATIVE); RBC, URINE AUTO 0 /HPF (0-3); SPECIFIC GRAVITY URINE AUTO 1.008 (1.002-1.035); SQUAMOUS EPITHELIAL CELL UR AU 1 /HPF (0-6); UROBILINOGEN, URINE AUTO 0.2 mg/dL (0.0-2.0); WBC, URINE AUTO 1 /HPF (0-3)
== END ==
LOC: M SMT 17:10
PROVIDERS: ATTEND Urology
DX: N13.30 Unspecified hydronephrosis (principal)

== ENCOUNTER 2018-11-17 12:02 | Day surgery (SDC) | payer BC ==
[~2018-11-17] VITALS: Ht 157.5 cm; Wt 87.3 kg
[~2018-11-17 12:02] MED LIST changes: +LIDOCAINE 1% MDV 20ML VIAL SQ PRN; +LR 1,000 ML IV ONE
[2018-11-17] MEDS ORDERED: fentaNYL 100 MCG/2 ML INJECTION (J3010) As Ordered ONE (12:09)
[2018-11-17] MEDS ORDERED: ONDANSETRON 4MG/2ML VIAL (J2405) As Ordered ONE (12:09)
[2018-11-17] MEDS ORDERED: dexameTHASONE 4 MG/ML 1ML VIAL (J1100) As Ordered ONE (12:09)
[2018-11-17] MEDS ORDERED: MIDAZOLAM INJ 2 MG/2 ML VIAL (J2250) As Ordered ONE (12:09)
[2018-11-17] MEDS ORDERED: PROPOFOL 200 MG/20 ML VIAL As Ordered ONE (12:09)
[2018-11-17] MEDS ORDERED: LIDOCAINE 2% INJ 100 MG/5 ML SDV (FOR ANES.) As Ordered ONE (12:09)
[2018-11-17] MEDS ORDERED: CONRAY-60 60% 50ML VIAL (Q9961) As Ordered ONE (13:29)
[2018-11-17] MEDS ORDERED: ePHEDrine SULFATE 25 MG/5 ML(5MG/ML) SYRINGE As Ordered ONE (13:42)
--- NOTE | 2018-11-17 13:58 | REP ---
Retrograde pyelogram: A single intraoperative fluoroscopic views performed during left ureteral stent placement: The proximal and distal pigtails are in satisfactory positions. Fluoroscopic exposure time is 16 seconds. Fluoroscopic images are performed with last image hold technology and require no additional radiation. Electronically Signed by Juan Carlos Salas MD 11/17/2018 01:50 P
[2018-11-17] MEDS ORDERED: oxyBUTYnin 5 MG TAB PO PRN (14:00)
--- NOTE | 2018-11-17 14:36 | RO ---
DATE OF PROCEDURE: 11/17/2018 PREOPERATIVE DIAGNOSIS: Left hydronephrosis with metastatic colon cancer. POSTOPERATIVE DIAGNOSIS: Left hydronephrosis with metastatic colon cancer. PROCEDURE PERFORMED: Cystoscopy, retrograde ureteropyelogram left side and stent placement. SURGEON: Krishna Conklin MD FLOORWALKER: ANESTHESIA: General. INDICATION: This is a pleasant 78-year-old lady with advanced metastatic colon cancer was found at routine follow-up to have new hydronephrosis on the left side prompting urologic referral. She has not had urinary infection. She has had some mild left sided pain. Her most recent creatinine 1.72 with GFR 30.7. She has had some bladder prolapse from her vagina as noted also on physical exam. Culture negative. PROCEDURE: After obtaining informed consent with the patient, she was taken to the operating room. After induction of adequate anesthetic, she was prepped and draped in the usual manner. A 22 Gambian diagnostic scope was advanced into the bladder. The bladder was inspected. There were no lesions noted. There was significant relaxation with prolapse of the bladder to the vaginal introitus. The ureteral orifices were visualized and noted to efflux clear urine. Retrograde ureteropyelography on the left side showed a 3-4 cm area of compression in the area at the left mid ureter. This appeared to be extrinsic. The system drained very slowly and hydronephrosis was noted proximal to this point. We were able to negotiate a wire through this narrowed area without difficulty and completed the case with placement of a 6 Gambian universal stent, the string detached, positioning confirmed fluoroscopically and the bladder emptied. The patient sent to recovery in satisfactory condition. DISPOSITION: Discharged home. Cipro 250 mg at bedtime, Ditropan 5 mg three times a day as needed for spasms. Diet as tolerated. Activity light. Follow-up in 10 weeks with SANDRO or new physician for preop evaluation. She will require repeat cystoscopy at approximately 3 months with either exchange or replacement of stent depending on retrograde findings at that time and response to treatment of her colon cancer.
[2018-11-17] MEDS ORDERED: METOCLOPRAMIDE INJ 10MG/2ML VIAL (J2765) IV PRN (14:45)
[2018-11-17] MEDS ORDERED: LR 1,000 ML IV SCH (14:45)
[2018-11-17] MEDS ORDERED: ONDANSETRON 4MG/2ML VIAL (J2405) IV PRN (14:45)
[2018-11-17] MEDS ORDERED: fentaNYL 100 MCG/2 ML INJECTION (J3010) IV PRN (14:45)
[2018-11-17] MEDS ORDERED: PERCOCET 5MG/325MG TAB PO PRN (14:45)
[2018-11-17 15:30] VITALS: BP 163/80
[2018-11-18] MEDS ORDERED: CIPROFLOXACIN 250 MG TAB PO SCH (06:00)
== END 2018-11-17 15:45 | disposition home or self-care (01) ==
LOC: M SDC 12:02
PROVIDERS: ATTEND Urology
DX: N13.30 Unspecified hydronephrosis (principal); C18.9 Malignant neoplasm of colon, unspecified; I10 Essential (primary) hypertension; E03.9 Hypothyroidism, unspecified; K21.9 Gastro-esophageal reflux disease without esophagitis; J45.909 Unspecified asthma, uncomplicated; E66.9 Obesity, unspecified; Z79.899 Other long term (current) drug therapy; Z79.51 Long term (current) use of inhaled steroids; Z88.8 Allergy status to other drugs, medicaments and biological substances; Z86.718 Personal history of other venous thrombosis and embolism; Z92.21 Personal history of antineoplastic chemotherapy
CPT/HCPCS: 52332; 74420; C1769; C2617; J0690; J1100; J2250; J2405; J3010; Q9961

== ENCOUNTER → 2018-11-29 | Outpatient (CLI) | payer BC ==
[~2018-11-29] MED LIST changes: +LEVO250T12 PO; +LIDO2.5C15 TOP; -LIDOCAINE 1% MDV 20ML VIAL SQ PRN; -LR 1,000 ML IV ONE; +OXYB5TAB10 PO
--- NOTE | 2018-11-29 20:00 | ECHO ---
DATE OF PROCEDURE: 11/29/2018 REFERRING PHYSICIAN: Briseida Stein NP INDICATION: Chemotherapy pericardial effusion. HEIGHT: 157 cm WEIGHT: 84 kg MEASUREMENTS: IVS: 1.1 LV: 3.8 LVPW: 1.1 LA: 4.2 Aorta: 3.1 IVC: 2.2 Left atrial volume index: 41 Mitral E wave velocity: 84, A-wave: 98 E prime septal: 5.6 E prime lateral: 9.0 FINDINGS The study is of good technical quality. The patient is in sinus rhythm. Left ventricle is of normal size and systolic function. I estimate left ventricular ejection fraction (LVEF) 60-65%. Computer calculated left ventricle (LV) was 57%. Right ventricle appears normal. Left atrium is severely enlarged. Right atrium is probably normal size. Aortic valve is minimally sclerotic, but it has three cusps and normal mobility. Mitral, tricuspid and pulmonic valves appear normal. No pericardial effusion is present. Inferior vena cava is dilated, but collapses with respiration indicative of likely mildly elevated central venous pressure. Aortic root and aortic arch appear normal. Abdominal aorta was not well seen. Doppler interrogation of aortic valve reveals no significant stenosis or insufficiency. There is trace mitral and pulmonic insufficiency and mild tricuspid insufficiency. Calculated pulmonary artery pressure is in 40s corresponding to moderate pulmonary hypertension. Mitral inflow pattern and tissue Doppler imaging of mitral annulus reveal grade 1 diastolic dysfunction. CONCLUSION 1. Study is of good technical quality. 2. Normal LV size with preserved LV systolic function and grade 1 diastolic dysfunction. 3. No hemodynamically significant valvular disease. 4. Likely elevated central venous pressure and moderate pulmonary hypertension. 5. No pericardial effusion. COMMENT Subacute bacterial endocarditis (SBE) prophylaxis is not recommended.
== END ==
LOC: M CARPUL 13:08
PROVIDERS: ATTEND Nurse Practitioner Family
DX: I31.3 Pericardial effusion (noninflammatory) (principal)

== ENCOUNTER → 2019-01-11 | Outpatient (CLI) | payer BC ==
[~2019-01-11] MED LIST changes: +GASTROGRAFIN SOLUTION 30ML (Q9963) As Ordered ONE
--- NOTE | 2019-01-11 20:01 | REP ---
HISTORY: Metastatic colon cancer. All priors were reviewed. The latest is 10/25/2018. The lack of intravenous contrast decreases the sensitivity of the exam. Multiple calcifications are seen in the hepatic parenchyma, status quo. No new abnormal low density lesions or high density lesions have developed. The gallbladder and spleen are unchanged. Splenic calcific granulomatous changes are noted, status quo. There is no change in the pancreas or adrenal glands. There is a stent in the left kidney and urinary tract. The proximal portion is in the left renal pelvis and the distal portion is in the urinary bladder. There is no evidence of hydronephrosis. The right kidney and the right renal collecting system are unchanged. Limited evaluation of the abdominal aorta and periaortic regions show no gross abnormalities or significant changes from the prior exam. There are no abnormal urinary bladder calcifications. There is no free fluid or free air. There is evidence of abnormal thickening of the adames of the ascending colon. This represents a change from the prior exam. There is a ventral hernia through which colon resides, status quo. Small bowel loops are also seen within the hernial sac. This too is unchanged. There is no evidence of intestinal obstruction. In the perirectal soft tissues there is a nodular density on the right. This is within the right ischiorectal fossa and measures approximately 2.3 cm. The etiology of this is uncertain. It has increased in size from the prior exam. Bone window technique throughout the exam shows no significant change in the appearance of the imaged osseous structures. Spinal degenerative changes are present, status quo. IMPRESSION: 1. Chronic hepatic and splenic calcifications. 2. Evidence of abnormal thickening of the adames of the ascending colon. Etiology is uncertain. Certainly, the finding could reflect neoplasm. This needs to be correlated clinically with appropriate followup. It does represent a change from the prior exam. Inflammatory disease could also be responsible for the finding. 3. Ventral hernia as described above. 4. Double pigtail stent on the left as described above. 5. Other findings and limitations as described above. Electronically Signed by Sivakumar Zambrano DO 01/12/2019 10:54 A
--- NOTE | 2019-01-11 20:08 | REP ---
HISTORY: Metastatic colon carcinoma. All prior chest CTs were reviewed, the latest 10/25/2018. The lack of intravenous contrast decreases the sensitivity of the exam. Previous mediastinal and hilar adenopathy has significantly improved, nearly abated. The hilar regions are difficult to evaluate without intravenous contrast administration. There are no pleural or pericardial effusions. The imaged osseous structures are unchanged from the latest prior exam. There are spinal degenerative changes present. I see no definite lytic or blastic osseous lesions. The tip of the central venous catheter is in the superior vena cava. Evaluation of the lung ruelas show no acute abnormalities or significant changes from the prior exam. Axillary adenopathy seen on the prior examination has abated. IMPRESSION: There has been some improvement as described above. There are no new lung field abnormalities as described above. Electronically Signed by Sivakumar Zambrano DO 01/12/2019 10:54 A
== END ==
LOC: M RAD 13:11
PROVIDERS: ATTEND Internal Medicine Medical Oncology
DX: C18.7 Malignant neoplasm of sigmoid colon (principal); K43.9 Ventral hernia without obstruction or gangrene; Z95.828 Presence of other vascular implants and grafts; K76.89 Other specified diseases of liver; D73.9 Disease of spleen, unspecified
CPT/HCPCS: 71250; 74176; Q9963

== ENCOUNTER → 2019-02-14 | Outpatient (REF) | payer BC ==
[~2019-02-14] MED LIST changes: -GASTROGRAFIN SOLUTION 30ML (Q9963) As Ordered ONE; +QC A650T3 PO
== END ==
LOC: M LAB REF 15:02
PROVIDERS: ATTEND Nurse Practitioner Women's Health
DX: Z01.818 Encounter for other preprocedural examination (principal); N13.30 Unspecified hydronephrosis

== ENCOUNTER 2019-02-23 13:42 | Day surgery (SDC) | payer BC, MEDICARE ==
[~2019-02-23] VITALS: Ht 157.5 cm; Wt 83.0 kg
[~2019-02-23 13:42] MED LIST changes: +LR 1,000 ML IV ONE; +ceFAZolin SOD 2 GM in IV 1 EA IV ONE
[2019-02-23] MEDS ORDERED: CIPR-250 PO (14:43)
[2019-02-23] MEDS ORDERED: CONRAY-60 60% 50ML VIAL (Q9961) As Ordered ONE (16:08)
[2019-02-23] MEDS ORDERED: LIDOCAINE 2% 5ML JELLY UROJET As Ordered ONE (16:08)
[2019-02-23] MEDS ORDERED: PROPOFOL 200 MG/20 ML VIAL As Ordered ONE ×3 (16:34→17:08)
[2019-02-23] MEDS ORDERED: ONDANSETRON 4MG/2ML VIAL (J2405) As Ordered ONE (16:34)
[2019-02-23] MEDS ORDERED: MIDAZOLAM INJ 2 MG/2 ML VIAL (J2250) As Ordered ONE (16:34)
[2019-02-23] MEDS ORDERED: fentaNYL 100 MCG/2 ML INJECTION (J3010) As Ordered ONE (16:34)
[2019-02-23] MEDS ORDERED: LIDOCAINE 2% INJ 100 MG/5 ML SDV (FOR ANES.) As Ordered ONE (16:34)
--- NOTE | 2019-02-23 17:56 | REP ---
Retrograde pyelogram: A series of three intraoperative fluoroscopic views are performed and demonstrate a left ureteral stent with the proximal pigtail in satisfactory position in an upper pole kamilla of the left kidney. The distal pigtail projects inferior to the pubic symphysis. No fluoroscopic exposure time is included with the images. Electronically Signed by Juan Carlos Salas MD 02/23/2019 05:47 P
--- NOTE | 2019-02-23 18:20 | RO ---
DATE OF PROCEDURE: 02/23/2019 PREPROCEDURE DIAGNOSIS: Left hydronephrosis. POSTPROCEDURE DIAGNOSIS: Left hydronephrosis. PROCEDURE: Cystoscopy, left retrograde pyelogram with intraoperative interpretation of images, left ureteral stent exchange with Resonance metallic stent. SURGEON: Dr. Beau Rincon. BATTERY CONTAINER TESTER ALUMINUM: None. ANESTHESIA: MAC. OPERATIVE INDICATIONS: This is a 78-year-old female with left hydroureteronephrosis due to bulky colon cancer. She was brought to the operating room today for a stent exchange. DESCRIPTION OF PROCEDURE: The patient was brought to the operating room where MAC anesthesia was administered. Prophylactic antibiotics were infused. She was then placed in dorsal lithotomy position and prepped and draped in the usual sterile fashion. A rigid cystoscope was inserted into the urethral meatus and advanced to the bladder. Once inside the bladder the previously placed stent was grasped and withdrawn until the distal end was seen protruding from the urethral meatus. Once that was done I advanced a wire and extended up the left collecting system and then removed the stent completely. I then advance the cannula for the Resonance stent over the wire up the left collecting system. The wire was removed and then I did a retrograde pyelogram and it was notable for mild left hydronephrosis and no extravasation. I then advanced the Resonance stent into the left collecting system and then used a pusher to advance it all the way in to the kidney. I then withdrew the sheath and once that was done there were adequate coils of the stent in the left renal pelvis and in the bladder. The bladder was emptied of all fluids and this marked the conclusion of the procedure. The patient was taken out of dorsal lithotomy position, awakened from anesthesia and transferred to the recovery room in stable condition. ESTIMATED BLOOD LOSS: 5 mL. COMPLICATIONS: None. SPECIMENS: None. PLAN: This patient will followup in the clinic in approximately 3 months to get her set up for possible stent exchange. K[place]
[2019-02-23 18:35] VITALS: BP 181/86
== END 2019-02-23 18:40 | disposition home or self-care (01) ==
LOC: M SDC 13:42
PROVIDERS: ATTEND Urology
DX: N13.30 Unspecified hydronephrosis (principal); C18.9 Malignant neoplasm of colon, unspecified; I10 Essential (primary) hypertension; E78.00 Pure hypercholesterolemia, unspecified; E03.9 Hypothyroidism, unspecified; K21.9 Gastro-esophageal reflux disease without esophagitis; Z79.899 Other long term (current) drug therapy; Z92.21 Personal history of antineoplastic chemotherapy; Z88.8 Allergy status to other drugs, medicaments and biological substances
CPT/HCPCS: 52332; 74420; C1769; C2625; J0690; J2250; J2405; J3010; Q9961

== ENCOUNTER → 2019-02-28 | Outpatient (CLI) | payer BC ==
[~2019-02-28] MED LIST changes: +CIPR-250 PO; -LR 1,000 ML IV ONE; -ceFAZolin SOD 2 GM in IV 1 EA IV ONE
--- NOTE | 2019-02-28 13:03 | REP ---
PET/CT: History: Restaging colon carcinoma. Comparisons: Comparison PET/CT study August 24, 2018 and January 11, 2018. TECHNIQUE: 66 minutes following the intravenous injection of a 8.70 mCi dose of F-18 FDG, three-dimensional PET scintigraphy is acquired from the skull base to the proximal thighs. Triplanar noncontrast CT scanning is acquired through the same anatomic range for attenuation correction, and image registration with scan parameters optimized to minimize radiation exposure to the patient. PET scintigraphy and CT datasets were fused and displayed on a workstation with multiplanar and projection display capability. PET/CT Findings: Head and neck soft tissues are unremarkable. The most recently noted right pretracheal lymph node focus of hypermetabolic uptake has resolved. There is no evidence of axillary or supraclavicular hypermetabolic uptake on today's study. There is a right-sided [id number] catheter. No abnormal hypermetabolic uptake is seen within the chest. In the abdomen and pelvis, there is normal hepatic, splenic, gastrointestinal, and genitourinary FDG accumulation. There are granulomatous calcifications in the liver and spleen. There is a ureteral stent in place on the left. No abnormal retroperitoneal or upper abdominal lymph node hypermetabolic uptake is seen. No abnormal pelvic hypermetabolic uptake is appreciated. A large ventral hernia persists. No abnormal skeletal hypermetabolic uptake is appreciated. Impression: Negative PET scintigraphy. No abnormal hypermetabolic uptake is seen. The recently noted right pretracheal mediastinal lymph node focus has resolved. Electronically Signed by Deepak Christensen MD 02/28/2019 04:53 P
== END ==
LOC: M PLARAD 07:35
PROVIDERS: ATTEND Internal Medicine Medical Oncology
DX: C18.7 Malignant neoplasm of sigmoid colon (principal); Z96.0 Presence of urogenital implants; D73.89 Other diseases of spleen; K76.89 Other specified diseases of liver; Z95.828 Presence of other vascular implants and grafts
CPT/HCPCS: 78815; A9552

== ENCOUNTER → 2019-05-05 | Outpatient (CLI) | payer BC ==
[~2019-05-05] MED LIST changes: +ISOVUE-370 76% 100ML VIAL (Q9967) As Ordered ONE
--- NOTE | 2019-05-05 13:45 | REP ---
CT ABDOMEN AND PELVIS WITHOUT AND WITH IV CONTRAST: CT urography. HISTORY: Hydronephrosis. There is also history of metastatic colon cancer. Comparison CT study January 11, 2019. October 25, 2018 prior study is also reviewed. THERE IS CT CONTRAST DOSE: 100 mL of intravenous Isovue [address] FINDINGS: Preliminary digital meat trimmer radiograph demonstrates a double pigtail left ureteral stent. Bowel gas pattern is normal. The lung bases are clear on axial CT images. There are scattered granulomatous calcifications in the liver and spleen as on previous studies. No focal splenic or hepatic mass lesion is seen. No pancreatic abnormality is noted. No abnormalities noted in the gallbladder. There is a large ventral hernia containing unobstructed loops of large and small intestine. The previously noted left hydronephrosis is resolved with a stent in good position. No retroperitoneal or pelvic adenopathy or mass lesion is observed. No uterine or ovarian abnormality is seen. No free fluid noted. Urinary bladder is unremarkable apart from the stent within it. A normal appendix is seen in the right lower quadrant. Small and large bowel loops are intact. No right-sided hydronephrosis. Postcontrast images demonstrate symmetric renal perfusion and function. Delayed postcontrast images show no additional abnormality. IMPRESSION: Left ureteral stent in good position. Previously noted left-sided hydronephrosis is resolved with the stent in place. Large ventral hernia again seen. No evidence of intra-abdominal mass or adenopathy. Electronically Signed by Deepak Christensen MD 05/05/2019 01:59 P
== END ==
LOC: M RAD 09:56
PROVIDERS: ATTEND Urology
DX: N13.30 Unspecified hydronephrosis (principal); C18.7 Malignant neoplasm of sigmoid colon; Z96.0 Presence of urogenital implants
CPT/HCPCS: 74178; Q9967

== ENCOUNTER 2019-07-27 09:19 | Day surgery (SDC) | payer BC, MEDICARE ==
[~2019-07-27] VITALS: Ht 157.5 cm; Wt 93.9 kg
[~2019-07-27 09:19] MED LIST changes: -ISOVUE-370 76% 100ML VIAL (Q9967) As Ordered ONE; +NS 1,000 ML IV ONE; +[UNRECOGNIZED DRUG - REMARK] INTRACATH
[2019-07-27] MEDS ORDERED: LIDOCAINE 2% INJ 100 MG/5 ML SDV (FOR ANES.) As Ordered ONE (10:40)
[2019-07-27] MEDS ORDERED: propofoL 200 MG/20 ML VIAL As Ordered ONE ×2 (10:40→10:56)
--- NOTE | 2019-07-27 10:59 | ROOR ---
Patient Name: Ashley Rucker Procedure Date: 07/27/2019 10:36 AM Date of : 1940 Age: 78 Room: [facility] Gender: Female Note Status: Finalized Procedure: Upper GI endoscopy Indications: Therapeutic procedure, For therapy of polyps in the duodenum Providers: Bartolome COLLADO MD Referring MD: Ab Joseph MD Requesting Provider: Medicines: Monitored Anesthesia Care Complications: No immediate complications. Procedure: Pre-Anesthesia Assessment: - The heart rate, respiratory rate, oxygen saturations, blood pressure, adequacy of pulmonary ventilation, and response to care were monitored throughout the procedure. The Endoscope was introduced through the mouth, and advanced to the second part of duodenum. The upper GI endoscopy was accomplished without difficulty. The patient tolerated the procedure well. Findings: The Z-line was variable. The examined esophagus was normal. Very small (insignificant) Hiatal Hernia. A single 8 mm semi-sessile polyp was found in the second portion of the duodenum. The polyp was removed with a hot snare. Resection and retrieval were complete. To prevent bleeding after the polypectomy, one hemostatic clip was successfully placed. There was no bleeding at the end of the procedure. Impression: - Z-line variable. - Normal esophagus. - Very small (insignificant) Hiatal Hernia. - A single duodenal polyp. Resected and retrieved. Clip was placed. Recommendation: - No ibuprofen, naproxen, or other non-steroidal anti-inflammatory drugs for 10 days after polyp removal. - Use Prilosec (omeprazole) 40 mg PO daily for 1 month. - (the script was sent to your pharmacy on file) Bartolome Collado MD Bartolome COLLADO MD 07/27/2019 10:58:59 AM Electronically signed by Bartolome COLLADO MD Number of Addenda: 0 Note Initiated On: 07/27/2019 10:36 AM Estimated Blood Loss: Estimated blood loss: none.
--- NOTE | 2019-07-27 11:23 | ROOR ---
Patient Name: Ashley Rucker Procedure Date: 07/27/2019 10:37 AM Date of : 1940 Age: 78 Room: [facility] Gender: Female Note Status: Finalized Procedure: Colonoscopy Indications: High risk colon cancer surveillance: Personal history of colon cancer Providers: Bartolome COLLADO MD Referring MD: Ab Joseph MD Requesting Provider: Medicines: Monitored Anesthesia Care Complications: No immediate complications. Procedure: Pre-Anesthesia Assessment: - The heart rate, respiratory rate, oxygen saturations, blood pressure, adequacy of pulmonary ventilation, and response to care were monitored throughout the procedure. The Colonoscope was introduced through the anus and advanced to the terminal ileum, with identification of the appendiceal orifice and IC valve. The colonoscopy was performed without difficulty. The patient tolerated the procedure well. The quality of the bowel preparation was good. Findings: The perianal and digital rectal examinations were normal. There was evidence of a prior functional end-to-end colo-colonic anastomosis in the recto-sigmoid colon. This was patent and was characterized by healthy appearing mucosa. A diminutive polyp was found in the splenic flexure. The polyp was sessile. The polyp was removed with a cold snare. Resection and retrieval were complete. A few medium-mouthed diverticula were found in the descending colon. Internal hemorrhoids were found during retroflexion. The hemorrhoids were moderate. The exam was otherwise without abnormality. Impression: - Patent functional end-to-end colo-colonic anastomosis at 18 cm from verge, characterized by healthy appearing mucosa. - One diminutive polyp at the splenic flexure, removed with a cold snare. Resected and retrieved. - Diverticulosis in the descending colon. - Internal hemorrhoids. - The examination was otherwise normal. Recommendation: - Repeat colonoscopy in 3 years for surveillance. Bartolome Collado MD Bartolome COLLADO MD 07/27/2019 11:23:13 AM Electronically signed by Bartolome COLLADO MD Number of Addenda: 0 Note Initiated On: 07/27/2019 10:37 AM Estimated Blood Loss: Estimated blood loss: none.
[2019-07-27 11:45] VITALS: BP 131/69
== END 2019-07-27 11:54 | disposition home or self-care (01) ==
LOC: M OPP 09:19
PROVIDERS: ATTEND Internal Medicine Gastroenterology
DX: Z85.038 Personal history of other malignant neoplasm of large intestine (principal); Z08 Encounter for follow-up examination after completed treatment for malignant neoplasm; Z98.0 Intestinal bypass and anastomosis status; D12.3 Benign neoplasm of transverse colon; K57.30 Diverticulosis of large intestine without perforation or abscess without bleeding; K64.8 Other hemorrhoids; K22.8 Other specified diseases of esophagus; K31.7 Polyp of stomach and duodenum; I10 Essential (primary) hypertension; Z92.21 Personal history of antineoplastic chemotherapy; K21.9 Gastro-esophageal reflux disease without esophagitis; Z86.718 Personal history of other venous thrombosis and embolism; Z92.89 Personal history of other medical treatment; E03.9 Hypothyroidism, unspecified; Z79.899 Other long term (current) drug therapy; Z88.8 Allergy status to other drugs, medicaments and biological substances

== ENCOUNTER → 2019-08-14 | Outpatient (CLI) | payer BC ==
[~2019-08-14] MED LIST changes: +GASTROGRAFIN SOLUTION 30ML (Q9963) As Ordered ONE; +ISOVUE-370 76% 100ML VIAL (Q9967) As Ordered ONE; -NS 1,000 ML IV ONE
--- NOTE | 2019-08-14 13:14 | REP ---
Clinical: Metastatic colon cancer. Restaging. Technique: Axial contrast enhanced images from the thoracic inlet to the upper abdomen with coronal and sagittal re-formations using 100 ml Isovue 370 intravenous contrast material. Comparison: 01/11/2019. Findings: Lung ruelas are well-aerated and demonstrate minimal scattered chronic appearing changes and minimal bibasilar fibroatelectatic changes. No acute pulmonary parenchymal consolidation, nodule or mass lesion. No obvious metastatic foci. No effusion. No axillary, hilar, or mediastinal adenopathy appreciated. Thoracic aorta, pulmonary vasculature and heart/pericardium are relatively normal / stable with mild atherosclerotic changes again noted. A small hiatal hernia is appreciated. Right-sided [id number] with tip in the right atrium. Surrounding musculoskeletal structures demonstrate degenerative changes without acute focal abnormality. Impression: 1. Minimal chronic bibasilar fibroatelectatic changes. 2. No acute mediastinal or pleuroparenchymal process. No adenopathy. No evidence for metastatic disease. Electronically Signed by Pedrito Ortiz MD 08/14/2019 01:05 P
--- NOTE | 2019-08-14 13:21 | REP ---
Clinical: Metastatic colon cancer. Restaging. Technique: Axial contrast enhanced images from the lung bases to the pubic symphysis using oral (per protocol) and 100 ml Isovue 370 intravenous contrast material with delayed images of the abdomen as well as coronal and sagittal re-formations. Comparison: 05/05/2019. Findings: Liver, spleen, pancreas, gallbladder, and bilateral adrenal glands are relatively normal / stable. Hepatic and splenic parenchymal calcifications suggest prior granulomas disease. No focal hepatic lesion noted. The kidneys demonstrate chronic age-related cortical scarring and atrophy along with left ureteral stent in satisfactory position. No hydronephrosis or perinephric stranding noted. The enteric system is without obstruction or acute inflammatory process. There is however, a large midline ventral hernia containing mesenteric fat and multiple nonobstructed loops of small and large bowel similar to prior examination. Pelvis demonstrates normal bladder and age-appropriate uterus/adnexa. No ascites. No free air. No intraperitoneal or retroperitoneal adenopathy. No obvious metastatic mass lesion. No osseous structures demonstrate age-related degenerative changes without acute abnormality. Impression: 1. Kidneys demonstrate age-related changes and left ureteral stent in satisfactory position without hydronephrosis, perinephric stranding or nephroureterolithiasis. 2. Large relatively stable ventral hernia containing mesenteric fat and multiple nonobstructed loops of small and large bowel. 3. No ascites. No adenopathy. No focal inflammatory changes. No evidence for metastatic disease or recurrence. Electronically Signed by Pedrito Ortiz MD 08/14/2019 01:12 P
== END ==
LOC: M RAD 11:02
PROVIDERS: ATTEND Internal Medicine Medical Oncology
DX: C18.9 Malignant neoplasm of colon, unspecified (principal)
CPT/HCPCS: 71260; 74177; Q9963; Q9967

== ENCOUNTER → 2019-11-03 | Outpatient (CLI) | payer BC ==
[~2019-11-03] MED LIST changes: -ISOVUE-370 76% 100ML VIAL (Q9967) As Ordered ONE; +ISOVUE-370 76% 100ML VIAL As Ordered ONE
--- NOTE | 2019-11-03 14:32 | REP ---
REASON FOR EXAM: Breast and colon carcinoma. COMPARISON: Multiple, the latest 08/14/2019. CONTRAST: 100 mL Isovue 370. The mediastinum and pulmonary hilum are stable. There is no mass or adenopathy. There are no pleural or pericardial effusions. The imaged osseous structures are stable and intact. Evaluation of the lung ruelas shows mild cylindrical stable bronchiectasis and stable bibasilar fibrotic changes. No new abnormal nodules, masses or opacities have developed. IMPRESSION: Stable CT examination of the chest. There is no evidence of acute disease. Electronically Signed by Sivakumar Zambrano DO 11/03/2019 03:06 P
--- NOTE | 2019-11-03 15:03 | REP ---
REASON: History of breast and colon carcinoma. COMPARISON: Multiple, the latest 08/14/2019. CONTRAST: 100 mL Isovue 370. The liver, gallbladder, spleen, pancreas, adrenal glands, and kidneys are unchanged. Note is again made of chronic calcific granulomatous changes in the liver and spleen along with age-related changes involving the kidneys. There is a left-sided double pigtail stent, the proximal portion of which is in the renal pelvis and the distal portion of which is in the urinary bladder status quo. No te is again made of a large ventral hernia, which contains multiple nondilated small bowel loops and associated mesenteries. The abdominal aorta and para-aortic regions are again seen to be within normal limits. No intra-abdominal or intrapelvic mass or adenopathy has developed. No free fluid or free air is seen in the abdomen or pelvis. The intra-abdominal and intrapelvic bowel loops and their mesenteries are essentially unchanged and again seen to be within normal limits. Bone window technique throughout the exam shows the osseous structures to appear stable and intact. IMPRESSION: Stable CT examination of the abdomen and pelvis with findings as described above. There is no evidence of acute intra-abdominal or intrapelvic disease. Electronically Signed by Sivakumar Zambrano DO 11/03/2019 03:07 P
== END ==
LOC: M RAD 11:14
PROVIDERS: ATTEND Internal Medicine Medical Oncology
DX: C18.9 Malignant neoplasm of colon, unspecified (principal); C50.919 Malignant neoplasm of unspecified site of unspecified female breast
CPT/HCPCS: 71260; 74177; Q9963; Q9967

== ENCOUNTER 2019-11-23 12:06 | Inpatient (IN) | payer MEDICARE, BC ==
[2019-11-23] VITALS (11 sets, daily range): BP systolic 151–188; BP diastolic 66–81
[~2019-11-23] VITALS: Ht 157.5 cm; Wt 101.4 kg
[~2019-11-23 12:06] MED LIST changes: -GASTROGRAFIN SOLUTION 30ML (Q9963) As Ordered ONE; -ISOVUE-370 76% 100ML VIAL As Ordered ONE
--- NOTE | 2019-11-23 13:12 | REP ---
Clinical: Shortness of breath . Comparison: 10/24/2018 . Findings: The mediastinum and cardiac silhouette are stable and within normal limits for portable technique. [id number] with tip in the SVC/right atrium. The lung ruelas are clear without acute consolidation, effusion, or pneumothorax. Skeletal structures are intact. Impression: No acute cardiopulmonary process appreciated. Electronically Signed by Pedrito Ortiz MD 11/23/2019 01:03 P
[2019-11-23 13:17] LABS: BASO # 0.1 10^3/uL (0.0-0.2); BASO % 0.4 % (0.0-1.0); HEMATOCRIT 41.3 % (36.0-47.0); HEMOGLOBIN 13.8 g/dl (12.0-15.5); LYMPH # 0.6 10^3/uL (1.5-5.0); LYMPH % 5.2 % (24.0-44.0); MEAN CORPUSCULAR HEMOGLOBIN 31.9 pg (27.0-33.0); MEAN CORPUSCULAR HGB CONC 33.4 g/dl (32.0-36.5); MEAN CORPUSCULAR VOLUME 95.4 fl (80.0-96.0); MONO # 0.5 10^3/uL (0.0-0.8); MONO % 4.4 % (0.0-5.0); NEUTROPHILS # 10.1 10^3/uL (1.5-8.5); PLATELET COUNT, AUTOMATED 248 10^3/uL (150-450); RED BLOOD COUNT 4.33 10^6/uL (4.00-5.40); WHITE BLOOD COUNT 11.3 10^3/uL (4.0-10.0)
[2019-11-23] MEDS ORDERED: ONDANSETRON 4MG/2ML VIAL IV ONE (14:15)
[2019-11-23] MEDS ORDERED: NS 1,000 ML IV ONE ×2 (14:15→17:00)
[2019-11-23 14:28] LABS: ALBUMIN 4.2 GM/DL (3.2-5.2); ALT/SGPT 17 U/L (12-78); BILIRUBIN,DIRECT 0.1 MG/DL (0.0-0.2); BILIRUBIN,TOTAL 0.5 MG/DL (0.2-1.0); BLOOD UREA NITROGEN 80 MG/DL (7-18); CALCIUM LEVEL 9.4 MG/DL (8.8-10.2); CARBON DIOXIDE LEVEL 11 MEQ/L (21-32); CHLORIDE LEVEL 87 MEQ/L (98-107); GLUCOSE, FASTING 747 MG/DL (70-100); POTASSIUM SERUM 6.1 MEQ/L (3.5-5.1); SODIUM LEVEL 122 MEQ/L (136-145); TOTAL PROTEIN 8.6 GM/DL (6.4-8.2); TROPONIN I < 0.02 NG/ML (< 0.10)
[2019-11-23] MEDS ORDERED: NS 2,000 ML in IV 1 EA IV ONE (14:45)
[2019-11-23 15:04] LABS: OSMOLALITY SERUM 347 MOSM/KG (280-301)
[2019-11-23 15:06] LABS: ACETONE/KETONE > 46.00 MG/DL (<2.81)
[2019-11-23 15:40] LABS: VENOUS BASE EXCESS -17.3 (-2.0-2.0); VENOUS HCO3 10.3 MEQ/L (23.0-27.0); VENOUS O2 SATURATION 90.3 % (60.0-80.0); VENOUS PARTIAL PRESSURE CO2 30.2 mmHg (38.0-50.0); VENOUS PARTIAL PRESSURE O2 69.3 mmHg (30.0-50.0); VENOUS PH 7.149 UNITS (7.330-7.430); VENOUS STANDARD HCO3 11.6 MEQ/L; VENOUS TOTAL CO2 11.2 MEQ/L (24.0-28.0)
[2019-11-23 15:48] LABS: HEMOGLOBIN A1c 8.8 %
[2019-11-23] MEDS ORDERED: INSULIN REGULAR IN 0.9 % NACL 100 UNIT in IV 1 EA IV SCH ×4 (15:52→16:53)
[2019-11-23] MEDS ORDERED: INSULIN IV RATE CHANGE DOCUMENTATION ML/HR XX SCH (16:00)
[2019-11-23] MEDS ORDERED: METOCLOPRAMIDE INJ 10MG/2ML VIAL (J2765 PER 1) IV ONE (16:00)
[2019-11-23] MEDS ORDERED: HumuLIN R (REGULAR) INSULIN (NovoLIN R) **100U/ML** PER UNIT IV ONE (16:00)
[2019-11-23] MEDS ORDERED: QVAR80AE8 INH (16:21)
[2019-11-23] MEDS ORDERED: CALCIUM GLUCONATE 1,000 MG in D5W MINI-BAG PLUS 100 ML IV ONE (17:00)
--- NOTE | 2019-11-23 17:27 | HPEPDOC ---
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 Currently on second-line therapy with single-agent pembrolizumab in complete metabolic response as of PET 02/28/2019 following early recurrence involving right pretracheal lymph node biopsy confirmed. NGS on original 2018 specimen confirmed BRAF mutation and p53 mutation. And the patient has been on immunotherapy. The patient presented to the hospital because she has been feeling unwell for the last 1 week. She stated that she was feeling dehydrated, but at the same time was urinating a lot and trying to drink some water. She felt very tired and also started with having loss of appetite and eventually nausea and vomiting, which has recovered a little bit. She said that she was not able to hold up anything and was vomiting continence. 3. The patient in the ER was found to have DKA with elevated beta hydroxybutyrate. She was acidotic with a blood sugar of greater than 700. She was started on a DKA protocol in the ER and we were consulted for admission. The patient currently will be admitted to ICU for DKA. She has never been a diabetic and this is the first time it has been diagnosed. Past medical history. Hypothyroidism, hypertension, asthma Past surgical history Colectomy for the colorectal cancer with end 2 end anastomosis Social history denies any smoking, any additional drug or any drug abuse Family history noncontributory REVIEW OF SYSTEMS: CONSTITUTIONAL: No fever, chills, sweats, fatigue, or weight loss. HEENT: No oral discomfort or mouth or lip ulcers. Hearing normal in both ears., But the tongue is extremely dry with cracked lips RESPIRATORY: Denies cough, dyspnea, hemoptysis, pleurisy. CARDIOVASCULAR: Denies chest pain, palpitations. BREASTS: Denies breast lumps or nipple discharge. MUSCULOSKELETAL: Denies skeletal pain, joint swelling, pain, or erythema. GENITOURINARY: No history of urinary frequency, burning, hematuria, or pain. Denies vaginal discharge. GASTROINTESTINAL: States that she has nausea, vomiting, but no constipation, dysphagia, bleeding, or anorexia; occasional intermittent diarrhea, treats with over the counters. Denies any blood in the stool. SKIN: Denies rash, ecchymosis, petechiae, jaundice. NEUROLOGICAL: No headache, visual difficulty, motor weakness, sensory deficits. No paresthesias. EXTREMITIES: No extremity edema. FOCUSED PHYSICAL EXAM:. The patient is a very tired Respiratory: Clear lungs to auscultation bilaterally anteriorly and posteriorly. No wheezes, rales or rubs. Cardiac: S1, S2. Regular rate and rhythm. No murmur. No gallop. Abdomen: Soft, nontender, obese, nondistended. Extremities: Trace pedal edema, nonpitting. Symmetric ankles. Mucous membranes are Are extremely dry with cracked tongue and lips LABORATORY DATA: Reviewed Radiology reviewed Assessment and plan #1 DKA. Given patient's elevated beta hydroxybutyrate, severe metabolic acidosis, elevated blood sugars with urinary ketones. The patient will be treated for DKA. The patient has been started on 2 L of normal saline bolus and will be getting 100 mL of normal saline after that. The patient also has been started on insulin drip as per DKA protocol. BMP every 4 hours, blood sugar check every 1 hour. VBG every 2 hours. Insulin drip will be titrated. The nile ent will be bridged with subcutaneous insulin with Levemir once the blood sugars are less than 250, and the anion gap is closed. The patient also will be started on the diet once his anion gap closes and once we start the bridging. Continue to monitor the ABGs and if the pH further drops with consider bicarbonate. Currently no indication of bicarbonate. As the patient is 79-year-old, aunts the first time she has been diagnosed with diabetes. We will order an HbA1c and probably the patient has developed this diabetes because of immunotherapy. We will discuss with oncologist once the patient is optimized about other possibilities. #2. Hypokalemia. Likely secondary to severe dehydration and DKA. Metabolic acidosis, also contributing to it. 1 g of calcium gluconate has been given and the patient will be continued on the insulin drip as well as hydration. This should be self-limiting. Will order an EKG and give the patient on telemetry as well. We will continue monitoring potassium every 4 hours. #3. History of stage III colon cancer. We will defer the management for outpatient setting once the patient is medically optimized. #4. Hypothyroidism. Continue Synthyroid. We will get a TSH as well. DVT and GI prophylaxis Patient is full code Input and output monitoring Disposition unknown at this time Vital Signs Vital Signs Date Time Temp Pulse Resp B/P (MAP) Pulse Ox O2 Delivery O2 Flow Rate FiO2 11/23/19 16:30 81 19 183/79 (113) 95 Room Air 11/23/19 15:41 97.2 Laboratory Data Labs 24H Laboratory Tests 2 11/23/19 13:04: Estimated Mean Plasma Glucose 206H, Hemoglobin A1c 8.8 11/23/19 13:05: Immature Granulocyte % (Auto) 1.0, Neutrophils (%) (Auto) 89.0H, Lymphocytes (%) (Auto) 5.2L, Monocytes (%) (Auto) 4.4, Eosinophils (%) (Auto) 0.0, Basophils (%) (Auto) 0.4, Neutrophils # (Auto) 10.1H, Lymphocytes # (Auto) 0.6L, Monocytes # (Auto) 0.5, Eosinophils # (Auto) 0.0, Basophils # (Auto) 0.1, Nucleated Red Blood Cells % (auto) 0.0, Anion Gap 24H, Glomerular Filtration Rate 19.0L, Osmolality 347H, Calcium Level 9.4, Total Bilirubin 0.5, Direct Bilirubin 0.1, Aspartate Amino Transf (AST/SGOT) 9, Alanine Aminotransferase (ALT/SGPT) 17, Alkaline Phosphatase 125H, Troponin I < 0.02, Total Protein 8.6H, Albumin 4.2, Albumin/Globulin Ratio 1.0L, B-Hydroxybutyrate > 46.00H 11/23/19 13:20: Urine Color YELLOW, Urine Appearance HAZY, Urine pH 5.0, Urine Specific [place] 1.020, Urine Protein 1+H, Urine Glucose (UA) 3+H, Urine Ketones 2+H, Urine Blood 1+H, Urine Nitrite NEGATIVE, Urine Bilirubin NEGATIVE, Urine Urobilinogen 0.2, Urine Leukocyte Esterase 1+H, Urine WBC (Auto) 4H, Urine RBC (Auto) 2, Urine Hyaline Casts (Auto) 0, Urine Bacteria (Auto) 1+H, Urine Squamous Epithelial Cells 2, Urine Mucus (Auto) SMALL, Urine Sperm (Auto) 11/23/19 13:42: Lactic Acid Level 2.2*H 11/23/19 14:52: Blood Gas Bicarbonate Standard 11.6, Venous Blood pH 7.149L, Venous Blood Partial Pressure CO2 30.2L, Venous Blood Partial Pressure O2 69.3H, Venous Blood Total Carbon Dioxide 11.2L, Venous Blood HCO3 10.3L, Venous Blood Oxygen Saturation 90.3H, Venous Blood Base Excess -17.3L CBC/BMP Laboratory Tests 11/23/19 13:05 Microbiology Microbiology 11/23/19 Blood Culture, Received Pending 11/23/19 Urine Culture, Received Pending 11/23/19 Blood Culture, Received Pending Home Medications Scheduled Beclomethasone Dipropionate (Qvar Redihaler) 80 Mcg/Act Hfa.aeroba, 2 PUFF INH DAILY Hydrochlorothiazide (Hydrochlorothiazide) 25 Mg Tab, 12.5 MG PO DAILY Levothyroxine Sodium (Levothyroxine Sodium) 125 Mcg Tab, 125 MCG PO DAILY Scheduled PRN Acetaminophen (Acetaminophen 8 Hour) 650 Mg Tablet.er, 650 MG PO PRN PRN for PAIN Albuterol Sulfate (Proair Hfa) 108 Mcg/Act Aer, 2 PUFF INH PRN PRN for DYSPNEA Allergies Coded Allergies: phenytoin (Verified Allergy, Mild, rash, 02/23/19) meperidine (Verified Adverse Reaction, Mild, vomiting, 02/23/19) A-FIB/CHADSVASC A-FIB History Current/History of A-Fib/PAF?: No Current PO Anticoag Therapy: No INGRID OCONNOR MD Nov 23, 2019 17:27
[2019-11-23 18:11] LABS: HEMATOCRIT 37.4 % (36.0-47.0); HEMOGLOBIN 12.1 g/dl (12.0-15.5); MEAN CORPUSCULAR HEMOGLOBIN 31.2 pg (27.0-33.0); MEAN CORPUSCULAR HGB CONC 32.4 g/dl (32.0-36.5); MEAN CORPUSCULAR VOLUME 96.4 fl (80.0-96.0); PLATELET COUNT, AUTOMATED 222 10^3/uL (150-450); RED BLOOD COUNT 3.88 10^6/uL (4.00-5.40); WHITE BLOOD COUNT 12.1 10^3/uL (4.0-10.0)
[2019-11-23 18:39] LABS: CALCIUM LEVEL 8.1 MG/DL (8.8-10.2); CREATININE FOR GFR 2.3 MG/DL (0.55-1.30); GLOMERULAR FILTRATION RATE 21.9 (>39); PHOSPHORUS LEVEL 4.3 MG/DL (2.5-4.9); POTASSIUM SERUM 4.4 MEQ/L (3.5-5.1)
[2019-11-23] MEDS: NS 1,000 ML IV SCH (18:40)
[2019-11-23] MEDS: INSULIN IV RATE CHANGE DOCUMENTATION ML/HR XX SCH (18:42)
[2019-11-23] MEDS: ACETAMINOPHEN 650MG ER TAB (TYLENOL ARTHRITIS) PO PRN (20:43)
[2019-11-23 23:27] LABS: VENOUS BASE EXCESS -17.1 (-2.0-2.0); VENOUS HCO3 10.1 MEQ/L (23.0-27.0); VENOUS O2 SATURATION 94.4 % (60.0-80.0); VENOUS PARTIAL PRESSURE CO2 28.6 mmHg (38.0-50.0); VENOUS PARTIAL PRESSURE O2 80.7 mmHg (30.0-50.0); VENOUS PH 7.165 UNITS (7.330-7.430); VENOUS STANDARD HCO3 11.6 MEQ/L
[2019-11-23 23:57] LABS: CALCIUM LEVEL 8.5 MG/DL (8.8-10.2); CREATININE FOR GFR 2.2 MG/DL (0.55-1.30); PHOSPHORUS LEVEL 4.1 MG/DL (2.5-4.9); POTASSIUM SERUM 5.5 MEQ/L (3.5-5.1)
[2019-11-24] VITALS (14 sets, daily range): BP systolic 128–169; BP diastolic 58–79
--- NOTE | 2019-11-24 00:46 | ECGEPIP ---
[facility] - ED Test Date: 2019-11-23 Pat Name: ALEJANDRO MOISE Department: Room: - Gender: Female Manager Implementation: carol : 1940 Requested By: BARTOLOME Smith Order Number: [id number] Reading MD: Bartolome Suggs Measurements Intervals [place] Rate: 85 P: 43 LA: 212 QRS: 20 QRSD: 90 T: 62 QT: 368 QTc: 439 Interpretive Statements Sinus arrhythmia Nonspecific ST-T wave abnormalities Similar to tracing done 10-24-18 Electronically Signed on 11-24-2019 0:45:34 EDT by Bartolome Suggs
[2019-11-24] MEDS: NS 1,000 ML IV SCH ×3 (02:53→21:05)
[2019-11-24] MEDS: INSULIN IV RATE CHANGE DOCUMENTATION ML/HR XX SCH ×4 (02:55→08:55)
[2019-11-24 02:59] LABS: VENOUS BASE EXCESS -16.3 (-2.0-2.0); VENOUS HCO3 8.9 MEQ/L (23.0-27.0); VENOUS O2 SATURATION 99.6 % (60.0-80.0); VENOUS PARTIAL PRESSURE CO2 20.6 mmHg (38.0-50.0); VENOUS PARTIAL PRESSURE O2 178.5 mmHg (30.0-50.0); VENOUS PH 7.252 UNITS (7.330-7.430); VENOUS STANDARD HCO3 12.3 MEQ/L; VENOUS TOTAL CO2 9.5 MEQ/L (24.0-28.0)
[2019-11-24 03:23] LABS: CALCIUM LEVEL 8.1 MG/DL (8.8-10.2); CREATININE FOR GFR 2.19 MG/DL (0.55-1.30); GLOMERULAR FILTRATION RATE 23.2 (>39); PHOSPHORUS LEVEL 3.7 MG/DL (2.5-4.9); POTASSIUM SERUM 5.2 MEQ/L (3.5-5.1)
[2019-11-24 06:00] LABS: VENOUS HCO3 15.9 MEQ/L (23.0-27.0); VENOUS O2 SATURATION 98.6 % (60.0-80.0); VENOUS PARTIAL PRESSURE CO2 31.5 mmHg (38.0-50.0); VENOUS PARTIAL PRESSURE O2 122.4 mmHg (30.0-50.0); VENOUS PH 7.321 UNITS (7.330-7.430); VENOUS STANDARD HCO3 17.3 MEQ/L; VENOUS TOTAL CO2 16.9 MEQ/L (24.0-28.0)
[2019-11-24 06:42] LABS: ACETONE/KETONE 17.57 MG/DL (<2.81); CALCIUM LEVEL 8.3 MG/DL (8.8-10.2); CREATININE FOR GFR 2.19 MG/DL (0.55-1.30); GLOMERULAR FILTRATION RATE 23.2 (>39); MAGNESIUM LEVEL 2.5 MG/DL (1.8-2.4); POTASSIUM SERUM 3.8 MEQ/L (3.5-5.1)
[2019-11-24] MEDS: PANTOPRAZOLE 40MG VIAL (C9113 PER 1) IV SCH (08:39)
[2019-11-24] MEDS: ENOXAPARIN 40MG/0.4ML SYRINGE (J1650 PER 10MG) SC SCH (08:39)
[2019-11-24] MEDS: LEVEMIR (INSULIN DETEMIR) 1 UNITS/0.01ML SC SCH ×2 (08:45→17:22)
[2019-11-24] MEDS ORDERED: D5W/0.9% SODIUM CHLORIDE 1,000 ML IV SCH (08:45)
[2019-11-24] MEDS ORDERED: GLUCAGON INJ 1MG VIAL SC PRN (09:45)
[2019-11-24] MEDS ORDERED: GLUCOSE 4GM CHEW TABLET PO PRN (09:45)
[2019-11-24] MEDS ORDERED: DEXTROSE 50% 50 ML SYRINGE IV PRN (09:45)
[2019-11-24 10:19] LABS: VENOUS HCO3 18.8 MEQ/L (23.0-27.0); VENOUS O2 SATURATION 99.4 % (60.0-80.0); VENOUS PARTIAL PRESSURE CO2 38.6 mmHg (38.0-50.0); VENOUS PARTIAL PRESSURE O2 188.6 mmHg (30.0-50.0); VENOUS PH 7.305 UNITS (7.330-7.430); VENOUS STANDARD HCO3 18.8 MEQ/L
[2019-11-24 10:42] LABS: CALCIUM LEVEL 8.2 MG/DL (8.8-10.2); CREATININE FOR GFR 1.9 MG/DL (0.55-1.30); GLOMERULAR FILTRATION RATE 27.3 (>39); POTASSIUM SERUM 3.8 MEQ/L (3.5-5.1)
[2019-11-24] MEDS ORDERED: NS 1,000 ML IV SCH (11:00)
[2019-11-24] MEDS ORDERED: KCL 40MEQ in NS 1000ML 1,000 ML IV SCH (11:15)
[2019-11-24] MEDS: HumaLOG INSULIN (NovoLOG) PER UNIT SC SCH ×3 (12:08→21:05)
[2019-11-24] MEDS ORDERED: POTASSIUM CHLORIDE 10 MEQ SR TABLET PO ONE (13:00)
--- NOTE | 2019-11-24 13:41 | IPNPDOC ---
Text Note Date of Service The patient was seen on 11/24/19. NOTE Ms. Rucker was seen at bedside this morning and reported some improvement in her fatigue and dizziness from last night. She states that she is still fatigued somewhat but has been able to eat and drink. She has not yet used the bathroom since her admission. She expressed surprise at her current condition stating that she never expected to have any problems with her blood sugar. She denies and headache, vision or hearing changes, chest pain, SOB, cough, or abdominal pain. Physical exam Vitals: See Below General: Tired appearing, obese female sitting in a hospital chair HEENT: EOMI. No facial rashes or lesions seen. Conjunctiva are normal without icterus. Respiratory: Lungs CTA B/L with no wheezing, rales or rhonchi CV: Normal S1 and S2. RRR. No murmurs, rubs, gallops Abdomen: Soft and nontender. No organomegaly palpated. No bruising or skin lesions Extremities: Trace nonpitting pedal edema. faint maculopapular rash on forearms bilaterally Assessment and Plan: #DKA: -Continue DKA management protocol -Anion gap normalized to 8 overnight -Transitioned to SC insulin -Fasting glucose now 187 and patient is eating well -Pt received 4.5L of NS since admission with creatinine 1.9 and trending bown (baseline 1.2-1.4) -Blood pH approximately 7.31 -K 3.8 and patient is off of IV insulin, give 40mEQ KCl PO once -Blood cultures pending, negative urine culture -A1C 8.8 #JERAMY: -Likely prerenal given patients dehydration -Order spot protein:creatinine ratio to asses for possible etiologies of her kidney injury -Bladder scan to ensure patient is not retaining fluids.having obstructive nephropathy- she has not yet used the bathroom #Hypothyroid: -Continue Synthroid -Obtain TSH #DVT Prophylaxis: -Enoxaparin Sodium #GI prophylaxis: -Pantoprazole 40 mg VS,Fishbone, I+O VS, Fishbone, I+O Laboratory Tests 11/23/19 17:34 11/23/19 17:36 11/23/19 23:16 11/24/19 02:41 11/24/19 05:54 11/24/19 10:08 Vital Signs Date Time Temp Pulse Resp B/P (MAP) Pulse Ox O2 Delivery O2 Flow Rate FiO2 11/24/19 11:00 69 130/63 (85) 11/24/19 07:35 98.1 18 95 Room Air I&O- Last 24 Hours up to 6 AM 11/24/19 06:00 Intake Total 4356.40 ml Output Total 2800 ml Balance 1556.40 ml GME ATTESTATION GME ATTESTATION My faculty preceptor for this patient encounter was physically present during the encounter and was fully available. All aspects of the patient interview, examination, medical decision making process, and medical care plan development were reviewed and approved by the faculty preceptor. The faculty preceptor is aware and concurs with the plan as stated in the body of this note and will attest to such by his/her cosignature. GME ATTESTATION GME ATTESTATION My faculty preceptor for this patient encounter was physically present during the encounter and was fully available. All aspects of the patient interview, examination, medical decision making process, and medical care plan development were reviewed and approved by the faculty preceptor. The faculty preceptor is aware and concurs with the plan as stated in the body of this note and will attest to such by his/her cosignature. ATTENDING NOTE Patient was seen and examined by me. With the above assessment and plan SHANNAN NORIEGA OMS-3 Nov 24, 2019 13:41 INGRID OCONNOR MD Nov 24, 2019 16:02
[2019-11-24 18:42] LABS: CALCIUM LEVEL 8.2 MG/DL (8.8-10.2); CREATININE FOR GFR 1.69 MG/DL (0.55-1.30); GLOMERULAR FILTRATION RATE 31.2 (>39); MAGNESIUM LEVEL 2.4 MG/DL (1.8-2.4); PHOSPHORUS LEVEL 1.8 MG/DL (2.5-4.9)
[2019-11-24] MEDS: FLUTICASONE HFA 220 MCG 12 GM INHALER (FLOVENT) INH SCH (19:54)
[2019-11-25 06:00] VITALS: BP 147/74
[2019-11-25 06:05] LABS: HEMATOCRIT 31.2 % (36.0-47.0); MEAN CORPUSCULAR HEMOGLOBIN 31.4 pg (27.0-33.0); MEAN CORPUSCULAR HGB CONC 32.4 g/dl (32.0-36.5); MEAN CORPUSCULAR VOLUME 96.9 fl (80.0-96.0); PLATELET COUNT, AUTOMATED 130 10^3/uL (150-450); RED BLOOD COUNT 3.22 10^6/uL (4.00-5.40); WHITE BLOOD COUNT 6.2 10^3/uL (4.0-10.0)
[2019-11-25 06:21] LABS: HEMOGLOBIN 10.1 g/dl (12.0-15.5)
[2019-11-25 06:26] LABS: CREATININE FOR GFR 1.46 MG/DL (0.55-1.30); MAGNESIUM LEVEL 2.3 MG/DL (1.8-2.4); PHOSPHORUS LEVEL 1.6 MG/DL (2.5-4.9); POTASSIUM SERUM 3.8 MEQ/L (3.5-5.1)
[2019-11-25] MEDS: LEVOTHYROXINE 125MCG TABLET (0.125MG) PO SCH (06:43)
[2019-11-25] MEDS: LEVEMIR (INSULIN DETEMIR) 1 UNITS/0.01ML SC SCH ×2 (06:43→17:54)
[2019-11-25] MEDS: NS 1,000 ML IV SCH (06:44)
[2019-11-25] MEDS: FLUTICASONE HFA 220 MCG 12 GM INHALER (FLOVENT) INH SCH ×2 (07:34→19:53)
[2019-11-25] MEDS ORDERED: LEVEMIR (INSULIN DETEMIR) 1 UNITS/0.01ML SC ONE (08:00)
[2019-11-25] MEDS: HumaLOG INSULIN (NovoLOG) PER UNIT SC SCH ×6 (08:10→20:15)
[2019-11-25] MEDS: ENOXAPARIN 40MG/0.4ML SYRINGE (J1650 PER 10MG) SC SCH (08:11)
[2019-11-25] MEDS: PANTOPRAZOLE 40MG VIAL (C9113 PER 1) IV SCH (08:11)
[2019-11-25] MEDS ORDERED: POTASSIUM PHOSPHATE INJ 18 MMOL in D5W 250 ML IV ONE (10:00)
--- NOTE | 2019-11-25 10:23 | IPNPDOC ---
Text Note Date of Service The patient was seen on 11/25/19. NOTE SUBJECTIVE: Patient was seen and examined today, lying comfortably in bed. She appears tired and weak. She states that she has been sleeping a lot. She states she has been eating normally, but feels that when she swallows she has having some pressure in her lower esophagus that takes a few minutes to resolve. She states this happens even with water. OBJECTIVE: VITAL SIGNS: See below GENERAL: Alert, comfortable, in no acute distress HEENT: Normocephalic, atraumatic, sclerae anicteric moist mucous membranes NECK: Supple, trachea midline, no lymphadenopathy, no JVD CARDIOVASCULAR: Regular rate and rhythm, normal S1 and S2. No murmurs, rubs, or gallops RESPIRATORY: Clear to auscultation bilaterally with equal air entry bilaterally. No wheezing, rhonchi, or rales. ABDOMEN: Soft, nontender, nondistended, bowel sounds present EXTREMITIES: No cyanosis or edema. Pulses 2+/4 in bilateral upper and lower extremities SKIN: [place], warm, dry NEUROLOGIC: Alert and oriented x3 to person, place and time. No focal deficits appreciated PSYCHIATRIC: Mood and affect appropriate ASSESSMENT/PLAN: #Type 1 diabetes mellitus with DKA, which has now resolved Patient likely developed type 1 diabetes mellitus secondary to Keytruda use On Levemir 10 units twice a day daily. Blood glucose levels have remained in the high 200s. Given an additional 4 units of Levemir this morning. Also added 2 units lispro with meals. Consistent carbohydrate diet. Hypoglycemic protocol. Patient will need to be discharged on insulin and follow up with oncology prior to her next Keytruda treatment. #JERAMY, resolved. Likely prerenal given dehydration on presentation. Has resolved with IV fluid hydration #Hypothyroidism Continue home dose of levothyroxine #Generalized weakness. PT and OT evaluations. ST evaluation for pressure 1. Swallowing, may be related to her weakness. #Hypophosphatemia. Continue to replete electrolytes as needed. #Stage III colon cancer. Follows with Dr. Hahn, will need follow-up appointment prior to her next chemotherapy session DVT prophylaxis: SC Lovenox GI prophylaxis: Protonix Disposition: VS,Fishbone, I+O VS, Fishbone, I+O Laboratory Tests 11/24/19 10:08 11/24/19 17:56 11/25/19 05:48 Vital Signs Date Time Temp Pulse Resp B/P (MAP) Pulse Ox O2 Delivery O2 Flow Rate FiO2 11/25/19 06:00 97.0 64 18 147/74 (98) 94 Room Air I&O- Last 24 Hours up to 6 AM 11/25/19 06:00 Intake Total 2029 ml Output Total 1000 ml Balance 1029 ml GME ATTESTATION GME ATTESTATION My faculty preceptor for this patient encounter was physically present during the encounter and was fully available. All aspects of the patient interview, ex amination, medical decision making process, and medical care plan development were reviewed and approved by the faculty preceptor. The faculty preceptor is aware and concurs with the plan as stated in the body of this note and will attest to such by his/her cosignature. ATTENDING NOTE Patient was seen and examined by me. Agree with the above assessment and plan The patient has improved significantly. Her DKA has resolved. Currently, she has been put on 10 twice a day of Levemir as well as stool 3 times a day of aspart. Her diaper in DKA is most likely ktruda related. The patient will be followed up by the oncologist as an outpatient to decide about the immunotherapy. But from our standpoint, she will be continued on insulin on discharge. . She was having some problems with "which could be a resultant of her hypophosphatemia versus deconditioning and for that reason, speech and swallow has been consulted. She also will be seen by physical therapy in my opinion, she might require some rehabilitation before she can go home. The patient is medically optimized at this time and further care will be dependent upon the hospital course. All the information was given to the patient and she agrees with the plan. MARY JANE OROZCO D.O. Nov 25, 2019 10:23 INGRID OCONNOR MD Nov 25, 2019 13:20
[2019-11-25 14:00] VITALS: BP 144/78
[2019-11-25 19:35] LABS: CALCIUM LEVEL 7.7 MG/DL (8.8-10.2); CREATININE FOR GFR 1.38 MG/DL (0.55-1.30); GLOMERULAR FILTRATION RATE 39.5 (>39); POTASSIUM SERUM 3.7 MEQ/L (3.5-5.1)
[2019-11-25 19:37] LABS: MAGNESIUM LEVEL 2.3 MG/DL (1.8-2.4)
[2019-11-25 22:00] VITALS: BP 144/71
[2019-11-26 06:00] VITALS: BP 153/80
[2019-11-26] MEDS: LEVOTHYROXINE 125MCG TABLET (0.125MG) PO SCH (06:10)
[2019-11-26] MEDS: LEVEMIR (INSULIN DETEMIR) 1 UNITS/0.01ML SC SCH ×2 (06:10→17:57)
[2019-11-26 06:14] LABS: HEMOGLOBIN 10.2 g/dl (12.0-15.5); MEAN CORPUSCULAR HEMOGLOBIN 31.3 pg (27.0-33.0); MEAN CORPUSCULAR HGB CONC 32.9 g/dl (32.0-36.5); MEAN CORPUSCULAR VOLUME 95.1 fl (80.0-96.0); PLATELET COUNT, AUTOMATED 116 10^3/uL (150-450); RED BLOOD COUNT 3.26 10^6/uL (4.00-5.40); WHITE BLOOD COUNT 4.4 10^3/uL (4.0-10.0)
[2019-11-26 06:38] LABS: CREATININE FOR GFR 1.2 MG/DL (0.55-1.30); GLOMERULAR FILTRATION RATE 46.4 (>39); MAGNESIUM LEVEL 2.1 MG/DL (1.8-2.4); PHOSPHORUS LEVEL 1.9 MG/DL (2.5-4.9); POTASSIUM SERUM 3.6 MEQ/L (3.5-5.1)
[2019-11-26] MEDS: FLUTICASONE HFA 220 MCG 12 GM INHALER (FLOVENT) INH SCH ×2 (07:12→18:40)
[2019-11-26] MEDS: HumaLOG INSULIN (NovoLOG) PER UNIT SC SCH ×7 (08:21→20:34)
[2019-11-26] MEDS: PANTOPRAZOLE 40MG VIAL (C9113 PER 1) IV SCH (08:21)
[2019-11-26] MEDS: ENOXAPARIN 40MG/0.4ML SYRINGE (J1650 PER 10MG) SC SCH (08:22)
[2019-11-26 14:00] VITALS: BP 125/84
--- NOTE | 2019-11-26 16:16 | IPNPDOC ---
Subjective Date Seen The patient was seen on 11/26/19. Subjective Chief Complaint/HPI Ms. Rucker reports she is feeling much better. She is pretty discouraged that she has developed diabetes and has a lot of questions about this condition. She notes that she is supposed to have a Kaytruda treatment on 12/05/19 and wonders what we want to do about this. General: Reports: Normal Appetite Constitutional: Denies: Chills, Fever Pulmonary: Denies: Dyspnea, Cough Cardiovascular: Denies: Chest Pain, Palpitations Endocrine: Denies: Polydipsia, Polyphagia, Polyuria Objective Physical Examination General Exam: Positive: Alert (sitting in her chair talking to her son when I entered the room), Cooperative, No Acute Distress Eye Exam: Positive: Conjunctiva & lids normal; Negative: Sclera icteric ENT Exam: Positive: Mucous membr. moist/pink Neck Exam: Positive: Supple; Negative: JVD, Lymphadenopathy Chest Exam: Positive: Clear to auscultation, Normal air movement Heart Exam: Positive: Rate Normal, Normal S1, Normal S2; Negative: Murmurs Abdomen Exam: Positive: Normal bowel sounds, Soft; Negative: Tenderness Psych Exam: Positive: Mood NL (she is discouraged, but is more of an adjustment reaction then full blown depression), Oriented x 3 Assessment /Plan Problems (1) Type 1 diabetes mellitus Status: Chronic Problem Text: She is getting used to the idea being a diabetic. We had a long conversation about this, including the different between type I and type 2 diabetes. She was under the impression that she may eventually be able to convert to oral medications and I helped her understand why this is not a possibility. (2) Antineoplastic antibiotics causing adverse effect in therapeutic use Problem Text: We strongly suspect that her treatment with Kaytruda precipitated her type 1 diabetes. One of the questions that she asked for which I'm not certain of the answer, is whether her type 1 diabetes is reversible if she stops the Kaytruda. My inclination is no, but I don't know this for sure. This will need to be discussed further with her oncologist before she receives more of this medication. (3) Generalized weakness Problem Text: She's not safe for discharge per PT. This is probably the thing holding up her discharge at this point in time. (4) Hypothyroidism Status: Chronic Problem Text: Continue home dose of levothyroxine. (5) Hypophosphatemia Problem Text: We will need to continue to monitor her electrolytes. We should encourage her to drink at least 8 ounces of milk daily. That will likely resolve her hypophosphatemia. (6) DKA (diabetic ketoacidoses) Status: Resolved Problem Text: This was her presenting symptom for her type 1 diabetes. (7) Adenocarcinoma of sigmoid colon Onset Date: ~ 12/2017 Status: Chronic Problem Text: She has an appointment scheduled for further treatment on 12/05/19. We need to recheck to her oncologist well before this to determine whether this should go forward or not. Plan/VTE VTE Prophylaxis Ordered?: Yes (Lovenox) VS, I&O, 24H, Fishbone Vital Signs/I&O Vital Signs Date Time Temp Pulse Resp B/P (MAP) Pulse Ox O2 Delivery O2 Flow Rate FiO2 11/26/19 14:00 98.5 72 16 125/84 (98) 98 Room Air I&O- Last 24 Hours up to 6 AM 11/26/19 06:00 Intake Total 2010 ml Output Total 2600 ml Balance -590 ml Laboratory Data 24H LABS Laboratory Tests 2 11/25/19 19:08: Anion Gap 10, Glomerular Filtration Rate 39.5, Calcium Level 7.7L, Phosphorus Level 2.0#L, Magnesium Level 2.3 11/25/19 20:15: Bedside Glucose (Misc Panel) 268H 11/26/19 05:52: Bedside Glucose (Misc Panel) 269H 11/26/19 05:57: Anion Gap 7L, Glomerular Filtration Rate 46.4, Calcium Level 8.0L, Phosphorus Level 1.9L, Magnesium Level 2.1, Nucleated Red Blood Cells % (auto) 0.0 11/26/19 12:01: Bedside Glucose (Misc Panel) 214H CBC/BMP Laboratory Tests 11/25/19 19:08 11/26/19 05:57 Microbiology Microbiology 11/23/19 Blood Culture - Preliminary, Resulted No Growth after 72 hours. All specime... 11/23/19 Urine Culture - Final, Complete 11/23/19 Blood Culture - Preliminary, Resulted No Growth after 72 hours. All specime... Fredrick Madera MD Nov 26, 2019 16:16
[2019-11-26 19:10] LABS: CALCIUM LEVEL 8.1 MG/DL (8.8-10.2); CREATININE FOR GFR 1.37 MG/DL (0.55-1.30); GLOMERULAR FILTRATION RATE 39.8 (>39); MAGNESIUM LEVEL 2.1 MG/DL (1.8-2.4); PHOSPHORUS LEVEL 1.9 MG/DL (2.5-4.9)
[2019-11-26] MEDS: PANTOPRAZOLE 40MG TAB (PROTONIX) PO SCH (20:34)
[2019-11-26 22:00] VITALS: BP 125/74
[2019-11-27 06:00] VITALS: BP 158/84
[2019-11-27] MEDS: LEVOTHYROXINE 125MCG TABLET (0.125MG) PO SCH (06:18)
[2019-11-27] MEDS: LEVEMIR (INSULIN DETEMIR) 1 UNITS/0.01ML SC SCH ×2 (06:19→17:20)
[2019-11-27] MEDS: ACETAMINOPHEN 650MG ER TAB (TYLENOL ARTHRITIS) PO PRN (06:19)
[2019-11-27 06:33] LABS: HEMATOCRIT 31.9 % (36.0-47.0); HEMOGLOBIN 10.4 g/dl (12.0-15.5); MEAN CORPUSCULAR HEMOGLOBIN 31.1 pg (27.0-33.0); MEAN CORPUSCULAR HGB CONC 32.6 g/dl (32.0-36.5); MEAN CORPUSCULAR VOLUME 95.5 fl (80.0-96.0); PLATELET COUNT, AUTOMATED 114 10^3/uL (150-450); RED BLOOD COUNT 3.34 10^6/uL (4.00-5.40); WHITE BLOOD COUNT 3.9 10^3/uL (4.0-10.0)
[2019-11-27 06:58] LABS: CALCIUM LEVEL 8.3 MG/DL (8.8-10.2); CREATININE FOR GFR 1.14 MG/DL (0.55-1.30); GLOMERULAR FILTRATION RATE 49.2 (>39); PHOSPHORUS LEVEL 2.5 MG/DL (2.5-4.9); POTASSIUM SERUM 3.6 MEQ/L (3.5-5.1)
[2019-11-27] MEDS: FLUTICASONE HFA 220 MCG 12 GM INHALER (FLOVENT) INH SCH ×2 (07:37→20:23)
[2019-11-27] MEDS: ENOXAPARIN 40MG/0.4ML SYRINGE (J1650 PER 10MG) SC SCH (07:59)
[2019-11-27] MEDS: HumaLOG INSULIN (NovoLOG) PER UNIT SC SCH ×7 (07:59→20:48)
[2019-11-27] MEDS: TRIAMCINOLONE ACET 0.1% CREAM 80 GM TOP SCH ×2 (09:00→20:49)
[2019-11-27 14:00] VITALS: BP 123/67
--- NOTE | 2019-11-27 18:38 | IPNPDOC ---
Text Note Date of Service The patient was seen on 11/27/19. NOTE Ms. Rucker was seen at bedside this am and reports continued fatigue. She does s polk that over the past two nights she has slept better than she has in months to years because she has not had to get up to use the bathroom repeatedly. She also states that she has been getting a mild tension-style headache across her forehead and upper cervical spine. Finally she admits that shortly before being admitted to the hospital she did start noticing some visual disturbances which she describes as color changes and transient blurriness. She also continues to complain of pruritis in her forearms and upper chest. Physical exam Vitals: See Below General: Tired appearing, obese female sitting in a hospital chair HEENT: EOMI. No facial rashes or lesions seen. Conjunctiva are normal without icterus. Respiratory: Lungs CTA B/L with no wheezing, rales or rhonchi CV: Normal S1 and S2. RRR. No murmurs, rubs, gallops Abdomen: Soft and nontender. No organomegaly palpated. No bruising or skin lesions Extremities: Trace nonpitting pedal edema. faint maculopapular rash on forearms bilaterally Assessment and Plan: # Type 1 DM, secondary to antineoplastic therapy - continue adjusting basal insulin to minimize the need for sliding scale insulin #Adenocarcinoma of the colon - she has been treated with Kaytruda which likely has caused a type 1 DM. -discuss the possibility of changing therapy vs. continuing the same with oncology before her next planned treatment 12/04 #DKA: Resolved -Anion gap 7 -Transitioned to SC long and short acting insulin -Fasting glucose now 242, will continue to monitor -Creatinine now baseline @ 1.14 -Blood cultures negative negative urine culture -A1C 8.8 -Heme/onc has been contacted regarding future chemotherapy and has stated that the patient will no longer be receiving chemotherapy at this time until they can re-evaluate her outpatient #Pruritic papules on forearms and chest -possibly contact dermatitis vs nummular eczema -Start Triamcinolone 0.1% cream BID on affected areas and monitor for improvement #JERAMY: Resolved - Pt Creatinine and BUN now baseline -Hold IV fluids as patient is eating/drinking well #Hypothyroid: -Continue Synthroid #DVT Prophylaxis: -Enoxaparin Sodium #GI prophylaxis: -Pantoprazole 40 mg VS,Fishbone, I+O VS, Fishbone, I+O Laboratory Tests 11/26/19 18:32 11/27/19 06:16 Vital Signs Date Time Temp Pulse Resp B/P (MAP) Pulse Ox O2 Delivery O2 Flow Rate FiO2 11/27/19 14:00 98.0 74 18 123/67 (85) 97 Room Air I&O- Last 24 Hours up to 6 AM 11/27/19 06:00 Intake Total 1500 ml Output Total 1650 ml Balance -150 ml GME ATTESTATION ATTENDING NOTE Family Medicine Attending Note: I was present on site to supervise JEFFREY Cee-4. We discussed the history and exam. I confirmed the bar elements during my [id number] encounter with the patient. We conferred on the assessment and plan; I agree with the note as documented. At this point the slight adjustment or aching in her insulin can be made in the outpatient setting. The thing keeping her from discharge is physical safety. 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
[2019-11-27] MEDS: PANTOPRAZOLE 40MG TAB (PROTONIX) PO SCH (20:47)
[2019-11-27 22:00] VITALS: BP 147/84
[2019-11-28 06:00] VITALS: BP 146/82
[2019-11-28 06:07] LABS: HEMATOCRIT 32.7 % (36.0-47.0); HEMOGLOBIN 10.5 g/dl (12.0-15.5); MEAN CORPUSCULAR HEMOGLOBIN 31.2 pg (27.0-33.0); MEAN CORPUSCULAR HGB CONC 32.1 g/dl (32.0-36.5); PLATELET COUNT, AUTOMATED 144 10^3/uL (150-450); RED BLOOD COUNT 3.37 10^6/uL (4.00-5.40); WHITE BLOOD COUNT 4.8 10^3/uL (4.0-10.0)
[2019-11-28] MEDS: LEVOTHYROXINE 125MCG TABLET (0.125MG) PO SCH (06:27)
[2019-11-28] MEDS: LEVEMIR (INSULIN DETEMIR) 1 UNITS/0.01ML SC SCH ×2 (06:28→17:01)
[2019-11-28] MEDS: FLUTICASONE HFA 220 MCG 12 GM INHALER (FLOVENT) INH SCH ×2 (08:11→18:15)
[2019-11-28 08:30] LABS: CALCIUM LEVEL 8.2 MG/DL (8.8-10.2); CREATININE FOR GFR 1.19 MG/DL (0.55-1.30); GLOMERULAR FILTRATION RATE 46.8 (>39); POTASSIUM SERUM 4.1 MEQ/L (3.5-5.1)
[2019-11-28] MEDS: HumaLOG INSULIN (NovoLOG) PER UNIT SC SCH ×7 (09:29→20:35)
[2019-11-28] MEDS: TRIAMCINOLONE ACET 0.1% CREAM 80 GM TOP SCH ×2 (09:29→20:42)
[2019-11-28] MEDS: ENOXAPARIN 40MG/0.4ML SYRINGE (J1650 PER 10MG) SC SCH (09:30)
[2019-11-28 09:33] LABS: MAGNESIUM LEVEL 2.1 MG/DL (1.8-2.4); PHOSPHORUS LEVEL 2.4 MG/DL (2.5-4.9)
--- NOTE | 2019-11-28 09:54 | IPNPDOC ---
Text Note Date of Service The patient was seen on 11/28/19. NOTE Ms. Rucker was seen at bedside today and states that she has decreased fatigue and that she is enjoying her PT treatments. She continues to state that she can now sleep much better due to not having to wake up repeatedly to urinate. She states she is eating more than she has in the past and is having no complaints regarding her urination or defecation. She states that her rash is less itchy since having the cream be applied. She denies any headache, SOB, cough, chest pain, abdominal pains. Physical exam Vitals: See Below General: Well appearing obese female sitting in a hospital chair HEENT: EOMI. No facial rashes or lesions seen. Conjunctiva are normal without icterus. Respiratory: Lungs CTA B/L with no wheezing, rales or rhonchi CV: Normal S1 and S2. RRR. No murmurs, rubs, gallops Abdomen: Soft and nontender. No organomegaly palpated. No bruising or skin lesions Extremities: +1 Pitting edema in legs B/L. faint maculopapular rash on forearms and rear arm bilaterally Assessment and Plan: #Type 1 DM, secondary to antineoplastic therapy - continue adjusting basal insulin to minimize the need for sliding scale insulin #Adenocarcinoma of the colon - she has been treated with Kaytruda which likely has caused a type 1 DM. -discuss the possibility of changing therapy vs. continuing the same with oncology before her next planned treatment 12/04 #DKA: Resolved -Anion gap 6 -Transitioned to SC long and short acting insulin -Fasting glucose now 229, will continue to monitor -Creatinine now baseline @ 1.19 -Blood cultures negative urine culture -A1C 8.8 -Currently replacing phosphorus and Magnesium which were likely low due to recent extreme diuresis and rapid volume replenishment -Heme/onc has been contacted regarding future chemotherapy and has stated that the patient will no longer be receiving chemotherapy at this time until they can re-evaluate her outpatient #Pruritic papules on forearms and chest -possibly contact dermatitis vs nummular eczema -Start Triamcinolone 0.1% cream BID on affected areas and monitor for improvement #JERAMY: Resolved -Pt Creatinine and BUN now baseline -Hold IV fluids as patient is eating/drinking well #Hypothyroid: -Continue Synthroid #DVT Prophylaxis: -Enoxaparin Sodium #GI prophylaxis: -Pantoprazole 40 mg Disposition: Discharge pending insulin optimization and PT clearance Attending attestation: Patient independently seen and evaluated, agree with plan. VS,Fishbone, I+O VS, Fishbone, I+O Laboratory Tests 11/28/19 05:26 Vital Signs Date Time Temp Pulse Resp B/P (MAP) Pulse Ox O2 Delivery O2 Flow Rate FiO2 11/28/19 06:00 98.7 66 18 146/82 (103) 96 Room Air I&O- Last 24 Hours up to 6 AM 11/28/19 05:59 Intake Total 1600 ml Output Total 2325 ml Balance -725 ml GME ATTESTATION GME ATTESTATION My faculty preceptor for this patient encounter was physically present during the encounter and was fully available. All aspects of the patient interview, examination, medical decision making process, and medical care plan development were reviewed and approved by the faculty preceptor. The faculty preceptor is aware and concurs with the plan as stated in the body of this note and will attest to such by his/her cosignature. SHANNAN NORIEGA OMS-3 Nov 28, 2019 09:54 MARY JANE OROZCO D.O. Nov 28, 2019 15:49 MALI BAINS MD Dec 02, 2019 10:32
[2019-11-28 14:00] VITALS: BP 136/75
[2019-11-28 20:42] VITALS: BP 142/80
[2019-11-28] MEDS: PANTOPRAZOLE 40MG TAB (PROTONIX) PO SCH (20:42)
[2019-11-28 22:00] VITALS: BP 142/80
[2019-11-29 06:00] VITALS: BP 143/79
[2019-11-29] MEDS: LEVOTHYROXINE 125MCG TABLET (0.125MG) PO SCH (06:03)
[2019-11-29] MEDS: LEVEMIR (INSULIN DETEMIR) 1 UNITS/0.01ML SC SCH (06:04)
[2019-11-29 06:51] LABS: HEMATOCRIT 32.9 % (36.0-47.0); HEMOGLOBIN 10.5 g/dl (12.0-15.5); MEAN CORPUSCULAR HEMOGLOBIN 31.1 pg (27.0-33.0); MEAN CORPUSCULAR HGB CONC 31.9 g/dl (32.0-36.5); MEAN CORPUSCULAR VOLUME 97.3 fl (80.0-96.0); PLATELET COUNT, AUTOMATED 168 10^3/uL (150-450); RED BLOOD COUNT 3.38 10^6/uL (4.00-5.40); WHITE BLOOD COUNT 4.5 10^3/uL (4.0-10.0)
[2019-11-29] MEDS: FLUTICASONE HFA 220 MCG 12 GM INHALER (FLOVENT) INH SCH (07:12)
[2019-11-29] MEDS: TRIAMCINOLONE ACET 0.1% CREAM 80 GM TOP SCH (09:43)
[2019-11-29] MEDS: ENOXAPARIN 40MG/0.4ML SYRINGE (J1650 PER 10MG) SC SCH (09:43)
[2019-11-29] MEDS: HumaLOG INSULIN (NovoLOG) PER UNIT SC SCH ×2 (09:44→13:51)
[2019-11-29] MEDS ORDERED: ACCUMIS XX (10:42)
[2019-11-29] MEDS ORDERED: INSU100I16 SQ (10:42)
[2019-11-29] MEDS ORDERED: AMLO25TA PO (10:42)
[2019-11-29] MEDS ORDERED: LEVE1INJ5 SC (10:42)
[2019-11-29] MEDS ORDERED: [UNRECOGNIZED DRUG - CODE] MC (10:42)
--- NOTE | 2019-11-29 17:06 | DS.PDOC ---
Discharge Summary General Date of Admission Nov 23, 2019 at 16:53 Date of Discharge 11/29/2019 Discharge Summary PROCEDURES PERFORMED DURING STAY: None ADMITTING DIAGNOSES: 1. DKA 2. Hypokalemia 3. History of stage III colon cancer 4. Hypothyroidism DISCHARGE DIAGNOSES: 1. DKA-resolved 2. Type 1 DM 2/2 chemotherapy with Keytruda 3. History of stage III colon cancer 4. Hypothyroidism COMPLICATIONS/CHIEF COMPLAINT: DKI. HISTORY OF PRESENT ILLNESS: Ms Rucker is a 79-year-old female with past medical history of Stage IV, TXN2M1, BRAF positive, MMR stable, p53 mutation positive colon adenocarcinoma arising from left sigmoid lesion with axillary and supraclavicular lymph nodes found on staging post colectomy December 2017. Currently on second-line therapy with single-agent pembrolizumab in complete metabolic response as of PET 02/28/2019 following early recurrence involving right pretracheal lymph node biopsy confirmed. NGS on original 2018 specimen confirmed BRAF mutation and p53 mutation. And the patient has been on immunotherapy. The patient presented to the hospital because she has been feeli ng unwell for the 1 week prior to admission. She stated that she was feeling dehydrated, but at the same time was urinating a lot and trying to drink some water. She felt very tired and also started with having loss of appetite and eventually nausea and vomiting, which has recovered a little bit. She said that she was not able to hold up anything and was vomiting continuously. The patient in the ER was found to have DKA with elevated beta hydroxybutyrate. She was acidotic with a blood sugar of greater than 700. She was started on a DKA protocol in the ER and we were consulted for admission. The patient currently will be admitted to ICU for DKA. She had never been a diabetic and [facility]. HOSPITAL COURSE: Following admission Ms. Rucker received DKA management including serial BMP, serial magnesium/calcium/phosphorus measurements, fluid resuscitation, insulin gtt therapy and electrolyte replenishment. She responded well to these measures, her anion gap closed, and her DKA resolved. Following the acute care of her DKA she was further insulin optimized on a long acting insulin with sliding scale meal and bedtime coverage and educated on how to manage her diabetes moving forward. She received regular PT evaluations and therapies to assess and improve her ambulation capabilities. She also continued to receive medications to treat her previous chronic medical conditions including levothyroxine, amlodipine and fluticasone propionate. She was also t reated for her pruritic arm and chest rash with Triamcinolone Acetonide 0.1% cream. DISCHARGE MEDICATIONS: Please see below. ALLERGIES: Please see below. PHYSICAL EXAMINATION ON DISCHARGE: VITAL SIGNS: Please see below. General: Well appearing obese female sitting in a hospital chair HEENT: EOMI. No facial rashes or lesions seen. Conjunctiva are normal without icterus. Respiratory: Lungs CTA B/L with no wheezing, rales or rhonchi CV: Normal S1 and S2. RRR. No murmurs, rubs, gallops Abdomen: Soft and nontender. No organomegaly palpated. No bruising or skin lesions Extremities: Trace edema in legs B/L. faint maculopapular rash on forearms and rear arm bilaterally Psychologic: Appropriate affect. Expresses some anxiety about managing her condition moving forward but does state that she is ready to try. LABORATORY DATA: Please see below. IMAGIN11/23/19: No acute cardiopulmonary process appreciated. PROGNOSIS: Fair ACTIVITY: [As tolerated]. DIET: As tolerated. DISCHARGE INSTRUCTIONS: 1. Please take medications as prescribed 2. Please follow up with Hematology/oncology as scheduled or within 5 days 3. Please follow up with Primary care physician in 3-5 days DISCHARGE CONDITION: [Stable]. TIME SPENT ON DISCHARGE: 35minutes. Attending attestation: Patient independently seen and evaluated, agree with plan. Vital Signs/I&Os Vital Signs Date Time Temp Pulse Resp B/P (MAP) Pulse Ox O2 Delivery O2 Flow Rate FiO2 11/29/19 06:00 98.0 67 18 143/79 (100) 97 Room Air I&O- Last 24 Hours up to 6 AM 11/29/19 05:59 Intake Total 1430 ml Output Total 0 ml Balance 1430 ml Laboratory Data Labs 24H Laboratory Tests 2 11/28/19 12:05: Bedside Glucose (Misc Panel) 279H 11/28/19 16:37: Bedside Glucose (Misc Panel) 241H 11/28/19 20:33: Bedside Glucose (Misc Panel) 228H 11/29/19 05:53: Bedside Glucose (Misc Panel) 170H 11/29/19 06:26: Nucleated Red Blood Cells % (auto) 0.0 CBC/BMP Laboratory Tests 11/29/19 06:26 FSBS Laboratory Tests Test 11/28/19 12:05 11/28/19 16:37 11/28/19 20:33 11/29/19 05:53 Range/Units Bedside Glucose (Misc Panel) 279 241 228 170 83-110 MG/DL Microbiology Microbiology 11/23/19 Blood Culture - Final, Complete NO GROWTH AFTER 5 DAYS 11/23/19 Urine Culture - Final, Complete 11/23/19 Blood Culture - Final, Complete NO GROWTH AFTER 5 DAYS Discharge Medications Scheduled Amlodipine Besylate (Amlodipine Besylate) 2.5 Mg Tablet, 2.5 MG PO QHS Beclomethasone Dipropionate (Qvar Redihaler) 80 Mcg/Act Hfa.aeroba, 2 PUFF INH DAILY, (Reported) Insulin Aspart (Insulin Aspart Flexpen) 100 Unit/1 Ml Insuln.pen, 1 UNIT SQ AC Dose based on sliding scale with meals Insulin Detemir (Levemir Flextouch) 100 Unit/1 Ml Insuln.pen, 18 UNIT SC BID Levothyroxine Sodium (Levothyroxine Sodium) 125 Mcg Tab, 125 MCG PO DAILY, (Reported) Scheduled PRN Acetaminophen (Acetaminophen 8 Hour) 650 Mg Tablet.er, 650 MG PO PRN PRN for PAIN, (Reported) Albuterol Sulfate (Proair Hfa) 108 Mcg/Act Aer, 2 PUFF INH PRN PRN for DYSPNEA, (Reported) Allergies Coded Allergies: phenytoin (Verified Allergy, Mild, rash, 02/23/19) meperidine (Verified Adverse Reaction, Mild, vomiting, 02/23/19) GME ATTESTATION E ATTESTATION My faculty preceptor for this patient encounter was physically present during the encounter and was fully available. All aspects of the patient interview, examination, medical decision making process, and medical care plan development were reviewed and approved by the faculty preceptor. The faculty preceptor is aware and concurs with the plan as stated in the body of this note and will attest to such by his/her cosignature. GME ATTESTATION E ATTESTATION My faculty preceptor for this patient encounter was physically present during the encounter and was fully available. All aspects of the patient interview, examination, medical decision making process, and medical care plan development were reviewed and approved by the faculty preceptor. The faculty preceptor is aware and concurs with the plan as stated in the body of this note and will attest to such by his/her cosignature. SHANNAN NORIEGA OMS-3 Nov 29, 2019 11:58 MARY JANE OROZCO D.O. Nov 29, 2019 19:23 MALI BAINS MD Dec 02, 2019 10:35
[2019-11-29] MEDS ORDERED: LEVEMIR (INSULIN DETEMIR) 1 UNITS/0.01ML SC SCH (18:00)
[2020-02-15] MEDS ORDERED: AUGM500T34 PO (15:04)
[2020-03-08] MEDS ORDERED: LEVE1INJ5 SC ×2 (10:02→10:09)
[2020-03-29] MEDS ORDERED: LIDO2.5C15 TOP (12:26)
== END 2019-11-29 16:34 | disposition home health service (06) | DRG 638 ==
LOC: M ED 12:06 → M ED INP 16:53 → ENRESERV 17:16 → M ICU 18:21 → M MSPAV 11-24 13:25
PROVIDERS: ADMIT Internal Medicine; ATTEND Internal Medicine
DX: E10.10 Type 1 diabetes mellitus with ketoacidosis without coma (principal); C18.9 Malignant neoplasm of colon, unspecified; N17.9 Acute kidney failure, unspecified; E03.9 Hypothyroidism, unspecified; E87.6 Hypokalemia; Z79.4 Long term (current) use of insulin; Z79.899 Other long term (current) drug therapy; Z88.8 Allergy status to other drugs, medicaments and biological substances; E86.0 Dehydration; E83.39 Other disorders of phosphorus metabolism

== ENCOUNTER → 2020-02-27 | Outpatient (CLI) | payer BC ==
[~2020-02-27] MED LIST changes: +ACCUMIS XX; +AMLO25TA PO; +AUGM500T34 PO; +GASTROGRAFIN SOLUTION 30ML (Q9963) As Ordered ONE; +INSU100I16 SQ; +LEVE1INJ5 SC; +QVAR80AE8 INH; +[UNRECOGNIZED DRUG - CODE] MC
--- NOTE | 2020-03-05 09:47 | REP ---
CT CHEST WITHOUT CONTRAST: HISTORY: Carcinoma of the colon. COMPARISON: Chest CT 11/03/19. CT study from 08/14/[address] FINDINGS: There is no evidence of pleural or pericardial effusion. No hilar or mediastinal mass or adenopathy has developed. There is a right side Ebeqj-w-jzmr catheter. Vascular calcification is noted. There are granulomatous calcifications scattered in the liver and spleen. No new parenchymal infiltrate, mass, or pulmonary nodule is appreciated. There is minimal linear pleuroparenchymal fibrosis anteriorly in the lingual segment of the left upper lobe adjacent to the anterior mediastinum, unchanged. No bony destructive lesion is seen. IMPRESSION: No evidence of mass, new pulmonary nodule or adenopathy. No acute disease seen. MTDD
--- NOTE | 2020-03-05 09:48 | REP ---
CT ABDOMEN AND PELVIS WITHOUT IV BUT WITH ORAL CONTRAST: HISTORY: Colon carcinoma. COMPARISON: CT Abdomen and pelvis study 11/03/19 and 08/14/19. CT FINDINGS: Digital preliminary construction manager radiograph demonstrates a normal bowel gas pattern. A double pigtail ureteral stent is noted in place on the left. Axial CT images demonstrate granulomatous calcifications scattered about in the liver and spleen unchanged from comparison study. No focal hepatic or splenic mass lesion is seen. The adrenal glands are unremarkable bilaterally. The kidneys are morphologically intact. Left double pigtail ureteral stent is noted in place. Urinary bladder is unremarkable. No hydronephrosis is seen. No retroperitoneal mass or adenopathy is seen. No abnormality is noted in the pancreas. Gallbladder is unremarkable. There is a large periumbilical ventral hernia transmitting small and large bowel loops through a large defect. The defect measures 8.1cm in right to left dimension by 9.3cm craniocaudal. There is no evidence of bowel obstruction. The ventral hernia is unchanged. There is an anastomotic suture line in the rectum as before. Uterus is tipped to the left. No uterine or adnexal mass lesion is observed. There are few diverticula in the left colon. No periaortic mass or adenopathy is seen. IMPRESSION: No evidence of intraabdominal recurrent or metastatic disease. Large ventral hernia. MTDD
== END ==
LOC: M RAD 12:34
PROVIDERS: ATTEND Internal Medicine Medical Oncology
DX: C18.9 Malignant neoplasm of colon, unspecified (principal); K43.9 Ventral hernia without obstruction or gangrene
CPT/HCPCS: 71250; 74176; Q9963

== ENCOUNTER → 2020-04-26 | Outpatient (REF) | payer BC, MEDICARE ==
[~2020-04-26] MED LIST changes: -GASTROGRAFIN SOLUTION 30ML (Q9963) As Ordered ONE
== END ==
LOC: M SFHCWAGY 13:42
PROVIDERS: ATTEND Physician Assistant
DX: R35.0 Frequency of micturition (principal)

== ENCOUNTER → 2020-06-27 | Outpatient (CLI) | payer BC ==
[~2020-06-27] MED LIST changes: +GASTROGRAFIN SOLUTION 30ML (Q9963) As Ordered ONE; +HYDR-3490 PO; -HYDR25TAB PO; +LEVO137T2 PO
--- NOTE | 2020-06-29 06:20 | REP ---
INDICATION: COLON CA COMPARISON: 02/27/2020 TECHNIQUE: Axial noncontrast images from the lung bases to the pubic symphysis with coronal and sagittal reformations. Oral contrast administered prior to imaging. This CT examination was performed using the following dose reduction techniques: Automated exposure control, adjustment of mA and/or kv according to the patient's size, and use of iterative reconstruction technique. FINDINGS: Hepatic and splenic parenchymal calcifications again noted and consistent with prior granulomatous disease or post therapeutic changes. Pancreas, gallbladder, bilateral adrenal glands, and right kidney are normal. Stable atrophic appearance of the left kidney with chronic perinephric stranding and ureteral stent in satisfactory position unchanged. The enteric system is without obstruction or acute inflammatory process. Large ventral hernia again noted containing nonobstructed loops of small bowel. Evidence for prior partial sigmoid resection and anastomosis in the pelvis. Pelvis demonstrates normal bladder and age-appropriate uterus/adnexa. No ascites. No free air. No adenopathy. No focal inflammatory stranding. Atherosclerotic changes to the aorta and vasculature without aneurysm. Musculoskeletal structures are intact and without acute osseous abnormality. IMPRESSION: 1. No acute abdominopelvic pathology appreciated. No evidence for recurrence or metastatic disease. 2. Chronic stable nonacute findings as described above. 3. No ascites, focal inflammatory stranding, adenopathy or free air. <Electronically signed by Pedrito Ortiz > 06/29/20 0616
--- NOTE | 2020-06-29 06:25 | REP ---
INDICATION: COLON CA COMPARISON: 02/27/2020 TECHNIQUE: Axial noncontrast images from the thoracic inlet to the upper abdomen with coronal and sagittal reformations. This CT examination was performed using the following dose reduction techniques: Automated exposure control, adjustment of mA and/or kv according to the patient's size, and use of iterative reconstruction technique. FINDINGS: Lung ruelas are well aerated and relatively symmetric with scattered stable chronic interstitial changes and mild chronic basilar bronchiectasis unchanged. No acute consolidation, significant nodule or mass lesion. No effusion. No pneumothorax. No obvious adenopathy. Stable atherosclerotic changes to the thoracic aorta and coronary arteries again noted without aortic aneurysm or cardiomegaly. No pericardial effusion. Hwtuzd-W-Hbsk identified with tip in the SVC/right atrium. Surrounding musculoskeletal structures demonstrate age-related degenerative changes without acute osseous abnormality. IMPRESSION: 1. No acute mediastinal or pleuroparenchymal process. 2. No evidence for metastatic disease. <Electronically signed by Pedrito Ortiz > 06/29/20 0621
== END ==
LOC: M RAD 15:20
PROVIDERS: ATTEND Internal Medicine Medical Oncology
DX: D61.818 Other pancytopenia (principal); C18.9 Malignant neoplasm of colon, unspecified
CPT/HCPCS: 71250; 74176; Q9963

== ENCOUNTER → 2020-07-17 | Outpatient (REF) | payer BC ==
[~2020-07-17] MED LIST changes: -GASTROGRAFIN SOLUTION 30ML (Q9963) As Ordered ONE
[2020-07-17 19:47] LABS: BACTERIA, URINE AUTO 3+ (NEGATIVE); RBC, URINE AUTO 92 /HPF (0-3); RENAL EPITHELIAL CELLS 2 /HPF; SQUAMOUS EPITHELIAL CELL UR AU 6 /HPF (0-6); WBC, URINE AUTO TNTC /HPF (0-3)
== END ==
LOC: M LAB REF 17:24
PROVIDERS: ATTEND Internal Medicine Nephrology
DX: N18.32 Chronic kidney disease, stage 3b (principal); R30.0 Dysuria

== ENCOUNTER → 2020-08-08 | Outpatient (REF) | payer BC, MEDICARE ==
[2020-08-08 17:52] LABS: APPEARANCE, URINE TURBID (CLEAR); BACTERIA, URINE AUTO 1+ (NEGATIVE); BILIRUBIN, URINE AUTO NEGATIVE (NEGATIVE); BLOOD, URINE BLOOD 2+ (NEGATIVE); COLOR, URINE YELLOW (YELLOW); GLUCOSE, URINE (UA) AUTO 2+ mg/dL (NEGATIVE); KETONE, URINE AUTO NEGATIVE (NEGATIVE); LEUKOCYTE ESTERASE, URINE AUTO 3+ (NEGATIVE); NITRITE, URINE AUTO NEGATIVE (NEGATIVE); PROTEIN, URINE AUTO 1+ mg/dL (NEGATIVE); RBC, URINE AUTO 31 /HPF (0-3); SPECIFIC GRAVITY URINE AUTO 1.013 (1.002-1.035); SQUAMOUS EPITHELIAL CELL UR AU 2 /HPF (0-6); UROBILINOGEN, URINE AUTO 0.2 mg/dL (0.0-2.0); WBC, URINE AUTO TNTC /HPF (0-3)
== END ==
LOC: M SMT 16:59
PROVIDERS: ATTEND Nurse Practitioner Women's Health
DX: Z01.818 Encounter for other preprocedural examination (principal); N13.30 Unspecified hydronephrosis; N39.0 Urinary tract infection, site not specified

== ENCOUNTER → 2020-08-19 | Outpatient (CLI) | payer BC ==
[~2020-08-19] MED LIST changes: +CIPR250T3 PO
[2020-08-19 18:38] LABS: APPEARANCE, URINE CLOUDY (CLEAR); BACTERIA, URINE AUTO 3+ (NEGATIVE); BILIRUBIN, URINE AUTO NEGATIVE (NEGATIVE); BLOOD, URINE BLOOD 1+ (NEGATIVE); COLOR, URINE YELLOW (YELLOW); GLUCOSE, URINE (UA) AUTO 2+ mg/dL (NEGATIVE); KETONE, URINE AUTO NEGATIVE (NEGATIVE); LEUKOCYTE ESTERASE, URINE AUTO 3+ (NEGATIVE); NITRITE, URINE AUTO NEGATIVE (NEGATIVE); PROTEIN, URINE AUTO 1+ mg/dL (NEGATIVE); RBC, URINE AUTO 10 /HPF (0-3); SPECIFIC GRAVITY URINE AUTO 1.012 (1.002-1.035); SQUAMOUS EPITHELIAL CELL UR AU 4 /HPF (0-6); UROBILINOGEN, URINE AUTO 0.2 mg/dL (0.0-2.0); WBC, URINE AUTO TNTC /HPF (0-3)
[2020-08-19 18:55] LABS: CALCIUM LEVEL 9.1 MG/DL (8.8-10.2); CREATININE FOR GFR 1.7 MG/DL (0.55-1.30); POTASSIUM SERUM 4.8 MEQ/L (3.5-5.1)
[2020-08-19 18:59] LABS: HEMATOCRIT 36.5 % (36.0-47.0); HEMOGLOBIN 11.7 g/dl (12.0-15.5); MEAN CORPUSCULAR HEMOGLOBIN 31.8 pg (27.0-33.0); MEAN CORPUSCULAR HGB CONC 32.1 g/dl (32.0-36.5); MEAN CORPUSCULAR VOLUME 99.2 fl (80.0-96.0); PLATELET COUNT, AUTOMATED 208 10^3/uL (150-450); RED BLOOD COUNT 3.68 10^6/uL (4.00-5.40)
[2020-08-19 19:12] LABS: INR 1.01; PROTHROMBIN TIME 13.5 SECONDS (12.5-14.3)
--- NOTE | 2020-08-20 04:28 | REPPI ---
INDICATION: N13.30 HYDRONEPHROSIS Z01.818 PRE OP TESTING COMPARISON: 11/23/2019 TECHNIQUE: PA and lateral. FINDINGS: The mediastinum and cardiac silhouette are normal. Tkimob-F-Vuuo identified with tip in the SVC. The lung ruelas demonstrate age-related changes without focal consolidation, effusion, or pneumothorax. There appears to be a small right posterior diaphragmatic hernia versus subtle eventration. The skeletal structures are intact and demonstrate age-related changes. IMPRESSION: No acute cardiopulmonary process. <Electronically signed by Pedrito Ortiz > 08/20/20 0424
== END ==
LOC: M PLAIMG 15:01
PROVIDERS: ATTEND Nurse Practitioner Women's Health
DX: Z01.818 Encounter for other preprocedural examination (principal); N13.30 Unspecified hydronephrosis

== ENCOUNTER → 2020-08-23 | Outpatient (CLI) | payer BC, MEDICARE | LOC: M LABSMTC 11:58 | PROVIDERS: ATTEND Anesthesiology | DX: Z01.812 Encounter for preprocedural laboratory examination (principal); Z20.822 Contact with and (suspected) exposure to COVID-19 ==

== ENCOUNTER → 2020-08-26 | Outpatient (CLI) | payer BC ==
--- NOTE | 2020-08-26 12:22 | REP ---
INDICATION: HYDRONEPHROSIS, CKD III B. COMPARISON: CT 06/27/2020. TECHNIQUE/RADIOTRACER AND DOSE: Following the intravenous administration of 8.8 mCi technetium 99 M Mag 3, flow and function images are performed in the posterior projection up to 30 minutes post injection. FINDINGS: There is poor perfusion of the left kidney with adequate perfusion of the right kidney. Renal function images show poor left renal parenchymal uptake. There is homogeneous right renal parenchymal uptake with no defect. There is bilateral excretion with no evidence for hydronephrosis or urinary tract obstruction. Split function is 18.3% on the left and 81.7% on the right. Time to peak is normal bilaterally. Renal function curves are quite shallow in their downward slopes. There is moderate postvoid residual in the urinary bladder after voiding. IMPRESSION: Poor perfusion and poor function left kidney. Mildly compromised function right kidney. No scintigraphic evidence of hydronephrosis or urinary tract obstruction. <Electronically signed by Juan Carlos Kenney > 08/26/20 [id number]
== END ==
LOC: M RAD 10:10
PROVIDERS: ATTEND Internal Medicine Nephrology
DX: N13.30 Unspecified hydronephrosis (principal); N18.32 Chronic kidney disease, stage 3b
CPT/HCPCS: 78707; A9562

== ENCOUNTER 2020-08-28 09:14 | Day surgery (SDC) | payer BC ==
[~2020-08-28] VITALS: Ht 157.5 cm; Wt 85.8 kg
[~2020-08-28 09:14] MED LIST changes: +LR 1,000 ML IV ONE; +LevoFLOXacin IV 500 MG in IV 1 EA IV ONE
[2020-08-28] MEDS ORDERED: fentaNYL 100 MCG/2 ML INJECTION (J3010) As Ordered ONE (10:36)
[2020-08-28] MEDS ORDERED: ONDANSETRON 4MG/2ML VIAL As Ordered ONE (10:36)
[2020-08-28] MEDS ORDERED: propofoL 200 MG/20 ML VIAL As Ordered ONE ×2 (10:36→11:52)
[2020-08-28] MEDS ORDERED: MIDAZOLAM INJ 2MG/2ML VIAL (J2250 PER 1MG) As Ordered ONE (10:36)
[2020-08-28] MEDS ORDERED: dexameTHASONE 4 MG/ML 1ML VIAL (J1100 PER 1MG) As Ordered ONE (10:36)
[2020-08-28] MEDS ORDERED: LIDOCAINE 2% 100MG/5ML SDV (FOR ANES.) As Ordered ONE (10:36)
[2020-08-28] MEDS ORDERED: ACETAMINOPHEN 1000MG 100ML IV BTL (OFIRMEV) (J0131 PER 10MG) As Ordered ONE (10:50)
[2020-08-28] MEDS ORDERED: CONRAY-60 60% 50ML VIAL (Q9961) As Ordered ONE (11:10)
[2020-08-28] MEDS ORDERED: HumaLOG INSULIN (NovoLOG) PER UNIT SC ONE (11:30)
[2020-08-28] MEDS ORDERED: LIDOCAINE 2% 5ML JELLY UROJET As Ordered ONE (11:52)
--- NOTE | 2020-08-28 12:32 | REP ---
INDICATION: LEFT HYDRONEPHROSIS, METASTATIC COLON CANCER. COMPARISON: None. TECHNIQUE: Two C-arm views abdomen and pelvis. FINDINGS: Contrast partially opacifies the left pelvocaliceal system.A left ureteral stent is placed. Proximal end is coiled in the left renal pelvis and the distal end in the urinary bladder appears IMPRESSION: 26 seconds fluoroscopy time utilized. <Electronically signed by Juan Carlos Kenney > 08/28/20 [id number]
[2020-08-28] MEDS ORDERED: fentaNYL 100 MCG/2 ML INJECTION (J3010) IV PRN (12:45)
[2020-08-28] MEDS ORDERED: LR 1,000 ML IV SCH (12:45)
[2020-08-28] MEDS ORDERED: ACETAMINOPHEN TAB 650MG DOSE (2X325MG) PO PRN (12:45)
[2020-08-28] MEDS ORDERED: oxyCODONE 5MG TAB PO PRN (12:45)
[2020-08-28] MEDS ORDERED: ONDANSETRON 4MG/2ML VIAL IV PRN (12:45)
--- NOTE | 2020-08-28 13:03 | ROOPDOC ---
[facility] Report Of Operation Report of Operation DATE OF PROCEDURE: 08/28/20 PREPROCEDURE DIAGNOSIS: Left hydronephrosis. POSTPROCEDURE DIAGNOSIS: Left hydronephrosis. PROCEDURE: Cystoscopy, left retrograde pyelogram with intraoperative interpretation of images, left ureteral stent exchange with Resonance metallic stent. SURGEON: Dr. Ashwin Quan. SHOTBLASTER: None. ANESTHESIA: MAC. OPERATIVE INDICATIONS: This is a 80-year-old female with left hydroureteronephrosis due to bulky colon cancer. She was brought to the operating room today for a stent exchange. DESCRIPTION OF PROCEDURE: The patient was brought to the operating room where MAC anesthesia was administered. Prophylactic antibiotics were infused. She was then placed in dorsal lithotomy position and prepped and draped in the usual sterile fashion. A rigid cystoscope was inserted into the urethral meatus and advanced to the bladder. Once inside the bladder a guidewire was advanced up the left collecting system alongside the previously placed stent. The stent was then grasped and removed. Once that was done I advanced the the cannula for the Resonance stent over the wire up the left collecting system. The wire was removed and then I did a retrograde pyelogram and it was notable for moderate left hydronephrosis and no extravasation. I then advanced the Resonance stent into the left collecting system and then used a pusher to advance it all the way in to the kidney. I then withdrew the sheath and once that was done there were adequate curls of the stent in the left renal pelvis and in the bladder. The bladder was emptied of all fluids and this marked the conclusion of the procedure. The patient was taken out of dorsal lithotomy position, awakened from anesthesia and transferred to the recovery room in stable condition. ESTIMATED BLOOD LOSS: 5 mL. COMPLICATIONS: None. SPECIMENS: None. PLAN: This patient will followup in the clinic in approximately 6 months. We will try to keep this stent in for a year. ASHWIN QUAN MD Aug 28, 2020 13:03
[2020-08-28 15:55] VITALS: BP 207/91
== END 2020-08-28 16:05 | disposition home or self-care (01) ==
LOC: M SDC 09:14
PROVIDERS: ATTEND Urology
DX: N13.30 Unspecified hydronephrosis (principal); C18.7 Malignant neoplasm of sigmoid colon; I10 Essential (primary) hypertension; E03.9 Hypothyroidism, unspecified; E78.00 Pure hypercholesterolemia, unspecified; Z79.899 Other long term (current) drug therapy; Z88.5 Allergy status to narcotic agent; Z88.8 Allergy status to other drugs, medicaments and biological substances
CPT/HCPCS: 52332; 74420; C1769; C2625; J0131; J1100; J1956; J2250; J2405; J3010; Q9961

== ENCOUNTER → 2020-09-25 | Outpatient (CLI) | payer BC ==
[~2020-09-25] MED LIST changes: +GASTROGRAFIN SOLUTION 30ML (Q9963) As Ordered ONE; +ISOVUE-370 76% 100ML VIAL As Ordered ONE; -LR 1,000 ML IV ONE; -LevoFLOXacin IV 500 MG in IV 1 EA IV ONE
== END ==
LOC: M RAD 13:18
PROVIDERS: ATTEND Internal Medicine Medical Oncology
DX: C18.9 Malignant neoplasm of colon, unspecified (principal)
CPT/HCPCS: 71250; 74176; Q9963

== ENCOUNTER → 2021-01-06 | Outpatient (CLI) | payer BC ==
[~2021-01-06] MED LIST changes: +CLOT1CRE71 TOP; -GASTROGRAFIN SOLUTION 30ML (Q9963) As Ordered ONE; -ISOVUE-370 76% 100ML VIAL As Ordered ONE; +LIDO1CRE42 TOP; -LIDO2.5C15 TOP
--- NOTE | 2021-01-06 22:00 | REP ---
INDICATION: COLON CA, INCREASING LABS, OBSTRUCTIVE UROPATHY COMPARISON: None TECHNIQUE: Real time kern scale ultrasound examination using curved array transducer. FINDINGS: Right kidney is normal in contour, size, echogenicity, and reniform shape. No hydronephrosis, nephrolithiasis, cystic or renal mass lesion appreciated. Right kidney measures 10.1 x 4.5 x 4.2 cm. Left kidney appears mildly atrophic and measures 8.5 x 3.3 x 3.4 cm without hydronephrosis, nephrolithiasis, cystic or renal mass lesion. Ureteral stent is identified. IMPRESSION: 1. Mild atrophic appearance to the left kidney with ureteral stent noted. <Electronically signed by Pedrito Ortiz > 01/06/21 [id number]
--- NOTE | 2021-01-06 22:14 | REP ---
INDICATION: COLON CA, INCREASING LABS, OBSTRUCTIVE UROPATHY COMPARISON: None TECHNIQUE: Real time B-mode ultrasound examination using curved array transducer. FINDINGS: Bladder is normal in appearance without wall thickening or mass lesion. Bilateral ureteral jets are identified. Stent via the left ureter noted. Prevoid bladder measures 13.1 x 8.8 x 9.4 cm (708 cc). Postvoid bladder measures 7.3 x 7.5 x 8.2 cm (293 cc). Postvoid residual: 41% IMPRESSION: 1. Left ureteral stent extends into the bladder. 2. Abnormal postvoid residual volume. <Electronically signed by Pedrito Ortiz > 01/06/21 [id number]
== END ==
LOC: M RAD 10:55
PROVIDERS: ATTEND Internal Medicine Medical Oncology
DX: C18.9 Malignant neoplasm of colon, unspecified (principal); R79.89 Other specified abnormal findings of blood chemistry

== ENCOUNTER → 2021-01-22 | Outpatient (CLI) | payer BC ==
[~2021-01-22] MED LIST changes: +GASTROGRAFIN SOLUTION 30ML (Q9963) As Ordered ONE; +ISOVUE-370 76% 100ML VIAL As Ordered ONE
--- NOTE | 2021-01-23 11:03 | REP ---
INDICATION: COLON CA COMPARISON: 09/25/2020 TECHNIQUE: Axial noncontrast images from the thoracic inlet to the upper abdomen with coronal and sagittal reformations. This CT examination was performed using the following dose reduction techniques: Automated exposure control, adjustment of mA and/or kv according to the patient's size, and use of iterative reconstruction technique. FINDINGS: Lung ruelas are well aerated and demonstrate mild stable chronic interstitial changes. No acute consolidation, suspicious nodule or mass. No effusion. No pneumothorax. Tracheobronchial tree is patent. Mediastinum demonstrates stable atherosclerotic changes to the thoracic aorta and coronary arteries without aortic aneurysm or cardiomegaly. No pericardial effusion. [id number]-G-Tifh identified with tip in the SVC. Musculoskeletal structures intact and without acute osseous abnormality. IMPRESSION: Chronic stable changes. No acute mediastinal or pleuroparenchymal process. No evidence for metastatic disease. <Electronically signed by Pedrito Ortiz > 01/23/21 [id number]
--- NOTE | 2021-01-23 11:16 | REP ---
INDICATION: COLON CA COMPARISON: 09/25/2020 TECHNIQUE: Axial images from the lung bases to the pubic symphysis with coronal and sagittal reformations obtained after appropriate oral contrast administration. This CT examination was performed using the following dose reduction techniques: Automated exposure control, adjustment of mA and/or kv according to the patient's size, and use of iterative reconstruction technique. FINDINGS: Liver and spleen demonstrate parenchymal calcifications suggesting prior granulomatous disease or post therapeutic changes. Evidence for prior cholecystectomy noted. Pancreas, bilateral adrenal glands, and right kidney are essentially normal. The left kidney demonstrates asymmetric atrophic change and a ureteral stent is identified extending to the bladder without hydronephrosis, nephrolithiasis or perinephric stranding. The enteric system is without obstruction or acute inflammatory process. Partial resection and anastomosis at the level of the distal sigmoid colon noted. There is a large ventral hernia containing nonobstructed loops of small and large bowel. Pelvis demonstrates normal bladder and age-appropriate uterus/adnexa. No ascites. No free air. No adenopathy. No focal inflammatory stranding. Abdominal aorta without aneurysm. Musculoskeletal structures are intact and without acute osseous abnormality. IMPRESSION: No acute abdominopelvic pathology appreciated. Large ventral hernia. Left ureteral stent in satisfactory position. No free fluid. No adenopathy. No obvious for recurrence or metastatic disease. <Electronically signed by Pedrito Ortiz > 01/23/21 [id number]
== END ==
LOC: M RAD 11:41
PROVIDERS: ATTEND Internal Medicine Medical Oncology
DX: C18.9 Malignant neoplasm of colon, unspecified (principal); K43.9 Ventral hernia without obstruction or gangrene; Z96.0 Presence of urogenital implants
CPT/HCPCS: 71250; 74176; Q9963

== ENCOUNTER → 2021-03-05 | Outpatient (REF) | payer BC, MEDICARE ==
[~2021-03-05] MED LIST changes: +CLOT1CRE56 TOP; -GASTROGRAFIN SOLUTION 30ML (Q9963) As Ordered ONE; -ISOVUE-370 76% 100ML VIAL As Ordered ONE
[2021-03-05 13:40] LABS: APPEARANCE, URINE CLOUDY (CLEAR); BACTERIA, URINE AUTO 1+ (NEGATIVE); BILIRUBIN, URINE AUTO NEGATIVE (NEGATIVE); BLOOD, URINE BLOOD 2+ (NEGATIVE); COLOR, URINE YELLOW (YELLOW); GLUCOSE, URINE (UA) AUTO 2+ mg/dL (NEGATIVE); KETONE, URINE AUTO NEGATIVE (NEGATIVE); LEUKOCYTE ESTERASE, URINE AUTO 3+ (NEGATIVE); NITRITE, URINE AUTO NEGATIVE (NEGATIVE); PROTEIN, URINE AUTO 1+ mg/dL (NEGATIVE); RBC, URINE AUTO 27 /HPF (0-3); SQUAMOUS EPITHELIAL CELL UR AU 4 /HPF (0-6); UROBILINOGEN, URINE AUTO 0.2 mg/dL (0.0-2.0); WBC, URINE AUTO TNTC /HPF (0-3)
== END ==
LOC: M SMT 13:03
PROVIDERS: ATTEND Nurse Practitioner Women's Health
DX: R35.0 Frequency of micturition (principal)

== ENCOUNTER → 2021-03-21 | Outpatient (REF) | payer BC ==
[~2021-03-21] MED LIST changes: +CIPR500T39 PO; -IBUP200T45 PO; +IBUP200T46 PO
== END ==
LOC: M LAB REF 16:48
PROVIDERS: ATTEND Internal Medicine Nephrology
DX: E83.42 Hypomagnesemia (principal)

== ENCOUNTER → 2021-05-26 | Outpatient (CLI) | payer BC ==
[~2021-05-26] MED LIST changes: +GASTROGRAFIN SOLUTION 30ML (Q9963) As Ordered ONE; +ISOVUE-370 76% 100ML VIAL As Ordered ONE
--- NOTE | 2021-05-26 20:23 | REP ---
INDICATION: COLON CA COMPARISON: 01/22/2021, 11/03/2019 TECHNIQUE: Axial noncontrast images from the thoracic inlet to the upper abdomen with coronal and sagittal reformations. This CT examination was performed using the following dose reduction techniques: Automated exposure control, adjustment of mA and/or kv according to the patient's size, and use of iterative reconstruction technique. FINDINGS: Bilateral lung ruelas are relatively well aerated and clear. There is very minimal chronic peribronchial thickening and trace right basilar linear scarring. No acute consolidation, suspicious nodule, or mass. No effusion. No pneumothorax. Tracheobronchial tree is patent. No obvious adenopathy. The mediastinum demonstrates atherosclerotic changes to the thoracic aorta and coronary arteries without aortic aneurysm. No cardiomegaly or pericardial effusion. [id number] identified with tip in the right atrium. Musculoskeletal structures demonstrate age-related changes without acute osseous abnormality. IMPRESSION: 1. No evidence for acute mediastinal or pleuroparenchymal process. Very minimal chronic changes. 2. No evidence for metastatic disease. <Electronically signed by Pedrito Ortiz > 05/26/212018
--- NOTE | 2021-05-26 20:27 | REP ---
INDICATION: COLON CA COMPARISON: 01/22/2021, 02/27/2020 TECHNIQUE: Axial noncontrast images from the lung bases to the pubic symphysis with coronal and sagittal reformations. This CT examination was performed using the following dose reduction techniques: Automated exposure control, adjustment of mA and/or kv according to the patient's size, and use of iterative reconstruction technique. FINDINGS: Lung bases are essentially clear. Visualized heart and pericardium normal. Liver and spleen again demonstrate parenchymal calcifications suggesting sequelae of prior granulomatous disease or chemotherapy. Pancreas, gallbladder, and bilateral adrenal glands are normal. Kidneys are relatively stable in appearance with normal right kidney and atrophic left kidney including pigtail catheter extending to the bladder. Evaluation of the enteric system demonstrates a stable broad-based ventral hernia containing nonobstructed loops of small bowel and mesenteric fat. There is no evidence for bowel obstruction or acute inflammatory process. Evidence for prior partial resection at the distal sigmoid level. Pelvis demonstrates normal bladder and age-appropriate uterus/adnexa. No ascites. No free air. No adenopathy. No focal inflammatory stranding. Abdominal aorta demonstrates atherosclerotic changes without aneurysm. Musculoskeletal structures demonstrate age-related degenerative changes without acute osseous abnormality.. IMPRESSION: No acute abdominopelvic pathology appreciated. Chronic findings as described above. No evidence for recurrence or metastatic disease. <Electronically signed by Pedrito Ortiz > 05/26/212023
== END ==
LOC: M RAD 12:15
PROVIDERS: ATTEND Internal Medicine Medical Oncology
DX: C18.7 Malignant neoplasm of sigmoid colon (principal)
CPT/HCPCS: 71250; 74176; Q9963

== ENCOUNTER → 2021-08-18 | Outpatient (CLI) | payer BC ==
[~2021-08-18] MED LIST changes: +AMLO2.5T3 PO; +CALC1CAP31 PO; +CENT1TAB PO; +FLON1SPR; -GASTROGRAFIN SOLUTION 30ML (Q9963) As Ordered ONE; +HYDR1CRE30 TOP; -ISOVUE-370 76% 100ML VIAL As Ordered ONE; +KEYT1INJ IV; -LEVO250T12 PO; +LEVO250T3 PO; +NOXI1TAB PO
[2021-08-18 13:05] LABS: HEMATOCRIT 34.6 % (36.0-47.0); HEMOGLOBIN 10.9 g/dl (12.0-15.5); MEAN CORPUSCULAR HEMOGLOBIN 30.4 pg (27.0-33.0); MEAN CORPUSCULAR HGB CONC 31.5 g/dl (32.0-36.5); MEAN CORPUSCULAR VOLUME 96.4 fl (80.0-96.0); PLATELET COUNT, AUTOMATED 197 10^3/uL (150-450); RED BLOOD COUNT 3.59 10^6/uL (4.00-5.40); WHITE BLOOD COUNT 5.7 10^3/uL (4.0-10.0)
[2021-08-18 13:17] LABS: INR 0.99; PROTHROMBIN TIME 13.5 SECONDS (12.7-14.5)
[2021-08-18 13:18] LABS: PARTIAL THROMBOPLASTIN TIME 32.2 SECONDS (25.9-37.0)
[2021-08-18 13:28] LABS: APPEARANCE, URINE TURBID (CLEAR); BACTERIA, URINE AUTO 1+ (NEGATIVE); BILIRUBIN, URINE AUTO NEGATIVE (NEGATIVE); BLOOD, URINE BLOOD 1+ (NEGATIVE); COLOR, URINE AMBER (YELLOW); GLUCOSE, URINE (UA) AUTO 3+ mg/dL (NEGATIVE); KETONE, URINE AUTO NEGATIVE (NEGATIVE); LEUKOCYTE ESTERASE, URINE AUTO 3+ (NEGATIVE); NITRITE, URINE AUTO NEGATIVE (NEGATIVE); PROTEIN, URINE AUTO 1+ mg/dL (NEGATIVE); RBC, URINE AUTO 63 /HPF (0-3); SPECIFIC GRAVITY URINE AUTO 1.008 (1.002-1.035); SQUAMOUS EPITHELIAL CELL UR AU 21 /HPF (0-6); UROBILINOGEN, URINE AUTO 0.2 mg/dL (0.0-2.0); WBC, URINE AUTO TNTC /HPF (0-3)
[2021-08-18 13:32] LABS: CALCIUM LEVEL 9.1 MG/DL (8.8-10.2); CREATININE FOR GFR 1.5 MG/DL (0.55-1.30); GLOMERULAR FILTRATION RATE 35.8 (>39); POTASSIUM SERUM 4.7 MEQ/L (3.5-5.1)
== END ==
LOC: M PLAIMG 11:19
PROVIDERS: ATTEND Nurse Practitioner Women's Health
DX: N13.30 Unspecified hydronephrosis (principal)

== ENCOUNTER → 2021-08-19 | Outpatient (CLI) | payer MEDICARE, BC ==
[2021-08-19 13:49] LABS: CHOLESTEROL RISK RATIO 3.592 (<5)
[2021-08-19 14:30] LABS: CREATININE, URINE 72.6 MG/DL; MALB URINE SIEMENS 91.6 MG/L; MAU/CREAT RATIO 126.1 MCG/MG (0.0-30.0)
[2021-08-19 14:50] LABS: HEMOGLOBIN A1c 8.8 %
== END ==
LOC: M PLALAB 09:10
PROVIDERS: ATTEND Internal Medicine
DX: E10.9 Type 1 diabetes mellitus without complications (principal); E78.00 Pure hypercholesterolemia, unspecified

== ENCOUNTER → 2021-08-20 | Outpatient (REF) | payer BC, MEDICARE ==
[2021-08-20 14:03] LABS: APPEARANCE, URINE CLOUDY (CLEAR); BACTERIA, URINE AUTO 2+ (NEGATIVE); BILIRUBIN, URINE AUTO NEGATIVE (NEGATIVE); BLOOD, URINE BLOOD 1+ (NEGATIVE); COLOR, URINE YELLOW (YELLOW); GLUCOSE, URINE (UA) AUTO 1+ mg/dL (NEGATIVE); KETONE, URINE AUTO NEGATIVE (NEGATIVE); LEUKOCYTE ESTERASE, URINE AUTO 3+ (NEGATIVE); NITRITE, URINE AUTO NEGATIVE (NEGATIVE); PROTEIN, URINE AUTO 1+ mg/dL (NEGATIVE); RBC, URINE AUTO 35 /HPF (0-3); SPECIFIC GRAVITY URINE AUTO 1.011 (1.002-1.035); SQUAMOUS EPITHELIAL CELL UR AU 0 /HPF (0-6); UROBILINOGEN, URINE AUTO 0.2 mg/dL (0.0-2.0); WBC, URINE AUTO TNTC /HPF (0-3)
== END ==
LOC: M SMT 12:49
PROVIDERS: ATTEND Nurse Practitioner Women's Health
DX: Z01.818 Encounter for other preprocedural examination (principal); N13.30 Unspecified hydronephrosis; Z79.899 Other long term (current) drug therapy

== ENCOUNTER → 2021-08-22 | Outpatient (CLI) | payer BC, MEDICARE | LOC: M LABSMTC 10:36 | PROVIDERS: ATTEND Anesthesiology | DX: Z01.812 Encounter for preprocedural laboratory examination (principal); Z20.822 Contact with and (suspected) exposure to COVID-19 ==

== ENCOUNTER → 2021-08-25 | Outpatient (CLI) | payer BC | LOC: M PLARAD 12:01 | PROVIDERS: ATTEND Internal Medicine | DX: C18.7 Malignant neoplasm of sigmoid colon (principal); Z53.9 Procedure and treatment not carried out, unspecified reason ==

== ENCOUNTER 2021-08-27 06:55 | Day surgery (SDC) | payer BC ==
[~2021-08-27] VITALS: Ht 157.5 cm; Wt 80.3 kg
[~2021-08-27 06:55] MED LIST changes: +CIPROFLOXACIN 400 MG in IV 1 EA IV ONE; +D5W/0.2% SODIUM CHLORIDE 1,000 ML IV ONE
[2021-08-27] MEDS ORDERED: LIDOCAINE 2% 100MG/5ML SDV (FOR ANES.) As Ordered ONE (06:56)
[2021-08-27] MEDS ORDERED: KETOROLAC 60MG 2ML VIAL As Ordered ONE (06:56)
[2021-08-27] MEDS ORDERED: MIDAZOLAM INJ 2MG/2ML VIAL (J2250 PER 1MG) As Ordered ONE (06:56)
[2021-08-27] MEDS ORDERED: ONDANSETRON 4MG/2ML VIAL As Ordered ONE (06:56)
[2021-08-27] MEDS ORDERED: dexameTHASONE 4 MG/ML 1ML VIAL (J1100 PER 1MG) As Ordered ONE (06:56)
[2021-08-27] MEDS ORDERED: propofoL 200 MG/20 ML VIAL As Ordered ONE ×2 (06:56→08:41)
[2021-08-27] MEDS ORDERED: fentaNYL 100 MCG/2 ML INJECTION As Ordered ONE (06:57)
[2021-08-27] MEDS ORDERED: DEXTROSE 50% 50 ML SYRINGE As Ordered ONE (07:51)
[2021-08-27] MEDS ORDERED: CONRAY-60 60% 50ML VIAL (Q9961) As Ordered ONE (08:04)
[2021-08-27] MEDS ORDERED: DEXTROSE 50% 50 ML SYRINGE IV PRN (08:20)
[2021-08-27] MEDS ORDERED: DEXTROSE 50% 50 ML SYRINGE IV ONE (08:20)
[2021-08-27] MEDS ORDERED: LIDOCAINE 2% 5ML JELLY UROJET As Ordered ONE (08:32)
[2021-08-27] MEDS ORDERED: ONDANSETRON 4MG/2ML VIAL IV PRN (09:40)
[2021-08-27] MEDS ORDERED: LR 1,000 ML IV SCH (09:40)
[2021-08-27 13:15] VITALS: BP 140/88
[2021-09-15] MEDS ORDERED: LEVO137T2 PO (10:31)
== END 2021-08-27 13:25 | disposition home or self-care (01) ==
LOC: M SDC 06:55
PROVIDERS: ATTEND Urology
DX: N13.39 Other hydronephrosis (principal); C18.9 Malignant neoplasm of colon, unspecified; I10 Essential (primary) hypertension; E10.9 Type 1 diabetes mellitus without complications; J45.909 Unspecified asthma, uncomplicated; N28.9 Disorder of kidney and ureter, unspecified; E03.9 Hypothyroidism, unspecified; R12 Heartburn; Z88.8 Allergy status to other drugs, medicaments and biological substances; Z85.09 Personal history of malignant neoplasm of other digestive organs; Z86.711 Personal history of pulmonary embolism; Z92.21 Personal history of antineoplastic chemotherapy; Z79.899 Other long term (current) drug therapy; Z79.890 Hormone replacement therapy; Z79.4 Long term (current) use of insulin
CPT/HCPCS: 52332; 74420; C1769; C2625; J0744; J1100; J1885; J2250; J2405; J3010; Q9961

== ENCOUNTER 2021-10-09 14:25 | Outpatient (CLI) | payer BC ==
[~2021-10-09] VITALS: Ht 157.5 cm; Wt 75.0 kg
[~2021-10-09 14:25] MED LIST changes: +ALBUTEROL 90 MCG/ACT 8GM HFA INHALER INH PRN; +ALBUTEROL SULFATE 2.5 MG/0.5 ML INH NEB SOLN INH PRN; -CIPROFLOXACIN 400 MG in IV 1 EA IV ONE; -D5W/0.2% SODIUM CHLORIDE 1,000 ML IV ONE; +EPINEPHrine INJ 1 MG/ML 1ML AMP IM PRN; +diphenhydrAMINE 50MG/ML VIAL (J1200) IV PRN; +methylPREDNISolone 125MG 2ML VIAL IV PRN
[2021-10-09] MEDS ORDERED: NS 1,000 ML IV SCH (15:20)
[2021-10-09 15:40] VITALS: BP 137/64
[2021-10-09] MEDS ORDERED: BEBTELOVIMAB 175MG 2ML VIAL (EUA) IV ONE (16:00)
[2021-10-09 16:10] VITALS: BP 124/70
[2021-10-09 16:40] VITALS: BP 162/76
== END 2021-10-09 16:40 | disposition home or self-care (01) ==
LOC: M OPCLI4PR 14:25 → M 4MAIN 14:29 → M OPCLI4PR 16:40
PROVIDERS: ATTEND Internal Medicine
DX: U07.1 COVID-19 (principal); Z88.6 Allergy status to analgesic agent; Z88.8 Allergy status to other drugs, medicaments and biological substances

== ENCOUNTER → 2021-11-07 | Outpatient (REF) | payer BC ==
[~2021-11-07] MED LIST changes: -ALBUTEROL 90 MCG/ACT 8GM HFA INHALER INH PRN; -ALBUTEROL SULFATE 2.5 MG/0.5 ML INH NEB SOLN INH PRN; -EPINEPHrine INJ 1 MG/ML 1ML AMP IM PRN; -diphenhydrAMINE 50MG/ML VIAL (J1200) IV PRN; -methylPREDNISolone 125MG 2ML VIAL IV PRN
[2021-11-07 18:22] LABS: AMORPHOUS SEDIMENT SMALL (NEGATIVE); APPEARANCE, URINE TURBID (CLEAR); BACTERIA, URINE AUTO NEGATIVE (NEGATIVE); BILIRUBIN, URINE AUTO NEGATIVE (NEGATIVE); BLOOD, URINE BLOOD 1+ (NEGATIVE); COLOR, URINE AMBER (YELLOW); GLUCOSE, URINE (UA) AUTO NEGATIVE (NEGATIVE); KETONE, URINE AUTO NEGATIVE (NEGATIVE); LEUKOCYTE ESTERASE, URINE AUTO 3+ (NEGATIVE); NITRITE, URINE AUTO NEGATIVE (NEGATIVE); PROTEIN, URINE AUTO 2+ mg/dL (NEGATIVE); RBC, URINE AUTO 25 /HPF (0-3); SPECIFIC GRAVITY URINE AUTO 1.011 (1.002-1.035); SQUAMOUS EPITHELIAL CELL UR AU 1 /HPF (0-6); TRANSITIONAL EPITHELIAL AUTO 2 /HPF; UROBILINOGEN, URINE AUTO 0.2 mg/dL (0.0-2.0); WBC, URINE AUTO TNTC /HPF (0-3)
== END ==
LOC: M SMT 16:54
PROVIDERS: ATTEND Urology
DX: N39.0 Urinary tract infection, site not specified (principal)

== ENCOUNTER → 2021-12-02 | Outpatient (REF) | payer MEDICARE, BC ==
[2021-12-02 19:01] LABS: APPEARANCE, URINE TURBID (CLEAR); BACTERIA, URINE AUTO NEGATIVE (NEGATIVE); BILIRUBIN, URINE AUTO NEGATIVE (NEGATIVE); BLOOD, URINE BLOOD 1+ (NEGATIVE); COLOR, URINE AMBER (YELLOW); GLUCOSE, URINE (UA) AUTO 1+ mg/dL (NEGATIVE); KETONE, URINE AUTO NEGATIVE (NEGATIVE); LEUKOCYTE ESTERASE, URINE AUTO 3+ (NEGATIVE); NITRITE, URINE AUTO NEGATIVE (NEGATIVE); PROTEIN, URINE AUTO 2+ mg/dL (NEGATIVE); RBC, URINE AUTO 7 /HPF (0-3); SPECIFIC GRAVITY URINE AUTO 1.012 (1.002-1.035); SQUAMOUS EPITHELIAL CELL UR AU 0 /HPF (0-6); UROBILINOGEN, URINE AUTO 0.2 mg/dL (0.0-2.0); WBC, URINE AUTO TNTC /HPF (0-3)
== END ==
LOC: M SMT 17:01
PROVIDERS: ATTEND Urology
DX: N39.0 Urinary tract infection, site not specified (principal)

== ENCOUNTER → 2022-01-19 | Outpatient (CLI) | payer MEDICARE, BC ==
[~2022-01-19] MED LIST changes: +BACT800T5 PO; +ESCI5SOL3 PO; +LEVO1TAB38 PO; -LEVO250T3 PO; +VENL37.598 PO
== END ==
LOC: M PLARAD 07:28
PROVIDERS: ATTEND Internal Medicine Hematology & Oncology
DX: C18.7 Malignant neoplasm of sigmoid colon (principal); C77.2 Secondary and unspecified malignant neoplasm of intra-abdominal lymph nodes

== ENCOUNTER → 2022-03-02 | Outpatient (CLI) | payer MEDICARE, BC | LOC: M PLARAD 09:51 | PROVIDERS: ATTEND Nurse Practitioner | DX: C18.7 Malignant neoplasm of sigmoid colon (principal) | CPT/HCPCS: 78815; A9552 ==

== ENCOUNTER → 2022-03-23 | Outpatient (CLI) | payer MEDICARE, BC | LOC: M WHC 11:46 | PROVIDERS: ATTEND Internal Medicine Medical Oncology | DX: D48.7 Neoplasm of uncertain behavior of other specified sites (principal); C18.9 Malignant neoplasm of colon, unspecified ==

== ENCOUNTER → 2022-04-03 | Outpatient (CLI) | payer MEDICARE, BC | LOC: M WHC 08:07 | PROVIDERS: ATTEND Internal Medicine Medical Oncology | DX: Z12.31 Encounter for screening mammogram for malignant neoplasm of breast (principal) ==

== ENCOUNTER → 2022-04-08 | Outpatient (CLI) | payer MEDICARE, BC | LOC: M WHC 12:23 | PROVIDERS: ATTEND Internal Medicine Medical Oncology | DX: R92.8 Other abnormal and inconclusive findings on diagnostic imaging of breast (principal) | CPT/HCPCS: 77065; G0279 ==

== ENCOUNTER → 2022-04-27 | Outpatient (CLI) | payer MEDICARE, BC ==
[~2022-04-27] MED LIST changes: +LEVO-92 PO
== END ==
LOC: M LABSMTC 10:07
PROVIDERS: ATTEND Anesthesiology
DX: Z01.812 Encounter for preprocedural laboratory examination (principal); Z20.822 Contact with and (suspected) exposure to COVID-19

== ENCOUNTER 2022-04-30 07:16 | Day surgery (SDC) | payer MEDICARE, BC ==
[~2022-04-30] VITALS: Ht 157.5 cm; Wt 84.4 kg
[~2022-04-30 07:16] MED LIST changes: +NS 1,000 ML IV ONE
[2022-04-30 08:55] VITALS: BP 175/98
== END 2022-04-30 09:21 | disposition home or self-care (01) ==
LOC: M OPP 07:16
PROVIDERS: ATTEND Internal Medicine Gastroenterology
DX: R93.3 Abnormal findings on diagnostic imaging of other parts of digestive tract (principal); Z98.0 Intestinal bypass and anastomosis status; Z85.048 Personal history of other malignant neoplasm of rectum, rectosigmoid junction, and anus; C18.7 Malignant neoplasm of sigmoid colon; Z79.4 Long term (current) use of insulin; Z79.51 Long term (current) use of inhaled steroids; Z79.899 Other long term (current) drug therapy; Z88.5 Allergy status to narcotic agent; Z86.718 Personal history of other venous thrombosis and embolism; I10 Essential (primary) hypertension; F32.9 Major depressive disorder, single episode, unspecified; F41.9 Anxiety disorder, unspecified; E11.9 Type 2 diabetes mellitus without complications; N13.30 Unspecified hydronephrosis; Z92.21 Personal history of antineoplastic chemotherapy

== ENCOUNTER → 2022-06-08 | Outpatient (CLI) | payer MEDICARE, BC ==
[~2022-06-08] MED LIST changes: -NS 1,000 ML IV ONE
== END ==
LOC: M RAD 11:22
PROVIDERS: ATTEND Internal Medicine Medical Oncology
DX: C18.9 Malignant neoplasm of colon, unspecified (principal)

== ENCOUNTER → 2022-06-17 | Outpatient (REF) | payer MEDICARE, BC ==
[~2022-06-17] MED LIST changes: +LEVO-95 PO
[2022-06-17 16:36] LABS: HEMATOCRIT 34.8 % (36.0-47.0)
== END ==
LOC: M LAB REF 15:18
PROVIDERS: ATTEND Internal Medicine Hematology
DX: C18.9 Malignant neoplasm of colon, unspecified (principal)

== ENCOUNTER → 2022-09-24 | Outpatient (CLI) | payer MEDICARE, BC ==
[~2022-09-24] MED LIST changes: +ALBU8.5H INH; +INSU100I6 SC; -LEVE1INJ5 SC; +NYST100085 TOP
== END ==
LOC: M RAD 11:23
PROVIDERS: ATTEND Nurse Practitioner
DX: C18.9 Malignant neoplasm of colon, unspecified (principal)

== ENCOUNTER → 2022-10-01 | Outpatient (CLI) | payer MEDICARE, BC | LOC: M CARPUL 10:32 | PROVIDERS: ATTEND Internal Medicine Pulmonary Disease | DX: R01.1 Cardiac murmur, unspecified (principal) ==

== ENCOUNTER → 2022-10-21 | Outpatient (CLI) | payer MEDICARE, BC | LOC: M EKG 15:59 | PROVIDERS: ATTEND Internal Medicine Medical Oncology | DX: C18.9 Malignant neoplasm of colon, unspecified (principal) ==

== ENCOUNTER 2022-11-27 11:59 | Emergency (ER) | payer MEDICARE, BC ==
[~2022-11-27] VITALS: Ht 157.5 cm; Wt 84.2 kg
[~2022-11-27 11:59] MED LIST changes: +INSU100I48 SC; +INSU100I48 SQ; -LIDO1CRE42 TOP; +LIDO30CR18 TOP
[2022-11-27] MEDS ORDERED: METOCLOPRAMIDE INJ 10MG/2ML VIAL IV ONE (12:40)
[2022-11-27] MEDS ORDERED: NS 1,000 ML IV ONE (12:40)
[2022-11-27 14:19] LABS: VENOUS BASE EXCESS -1.4 (-2.0-2.0); VENOUS HCO3 26.3 MMOL/L (23.0-27.0); VENOUS O2 SATURATION 70.2 % (60.0-80.0); VENOUS PARTIAL PRESSURE CO2 57.3 mmHg (38.0-50.0); VENOUS PARTIAL PRESSURE O2 40.9 mmHg (30.0-50.0); VENOUS PH 7.279 UNITS (7.330-7.430); VENOUS STANDARD HCO3 22.7 MMOL/L
[2022-11-27 14:35] LABS: BASO % 0.5 % (0.0-1.0); EOS % 0.3 % (0.0-3.0); HEMOGLOBIN 11.5 g/dl (12.0-15.5); LYMPH # 0.9 10^3/uL (1.5-5.0); LYMPH % 13.6 % (24.0-44.0); MEAN CORPUSCULAR HEMOGLOBIN 30.7 pg (27.0-33.0); MEAN CORPUSCULAR HGB CONC 31.1 g/dl (32.0-36.5); MEAN CORPUSCULAR VOLUME 98.7 fl (80.0-96.0); MONO # 0.5 10^3/uL (0.0-0.8); MONO % 7.3 % (2.0-8.0); NEUTROPHILS # 4.9 10^3/uL (1.5-8.5); PLATELET COUNT, AUTOMATED 220 10^3/uL (150-450); RED BLOOD COUNT 3.75 10^6/uL (4.00-5.40); WHITE BLOOD COUNT 6.3 10^3/uL (4.0-10.0)
[2022-11-27 14:38] LABS: APPEARANCE, URINE HAZY (CLEAR); BACTERIA, URINE AUTO 1+ (NEGATIVE); BILIRUBIN, URINE AUTO NEGATIVE (NEGATIVE); BLOOD, URINE BLOOD NEGATIVE (NEGATIVE); COLOR, URINE YELLOW (YELLOW); GLUCOSE, URINE (UA) AUTO 3+ mg/dL (NEGATIVE); KETONE, URINE AUTO NEGATIVE (NEGATIVE); LEUKOCYTE ESTERASE, URINE AUTO 2+ (NEGATIVE); MUCUS, URINE SMALL (NEGATIVE); NITRITE, URINE AUTO NEGATIVE (NEGATIVE); PROTEIN, URINE AUTO NEGATIVE (NEGATIVE); RBC, URINE AUTO 3 /HPF (0-3); SPECIFIC GRAVITY URINE AUTO 1.011 (1.002-1.035); SQUAMOUS EPITHELIAL CELL UR AU 14 /HPF (0-6); UROBILINOGEN, URINE AUTO 0.2 mg/dL (0.0-2.0); WBC, URINE AUTO 62 /HPF (0-3)
[2022-11-27 14:49] LABS: LIPASE 27 U/L (12-53)
[2022-11-27 14:51] LABS: ACETONE/KETONE 0.12 MMOL/L (0.02-0.27); ALBUMIN 3.5 G/DL (3.2-5.2); ALKALINE PHOSPHATASE 67 U/L (46-116); ALT/SGPT 13 U/L (7.0-40); AST/SGOT 20 U/L (<34); BILIRUBIN,DIRECT < 0.1 MG/DL (<0.4); BILIRUBIN,TOTAL 0.3 MG/DL (0.3-1.2); BLOOD UREA NITROGEN 35 MG/DL (9-23); CALCIUM LEVEL 9.6 MG/DL (8.3-10.6); CARBON DIOXIDE LEVEL 27 MMOL/L (20-31); CHLORIDE LEVEL 104 MMOL/L (98-107); CREATININE FOR GFR 1.24 MG/DL (0.55-1.30); GLOMERULAR FILTRATION RATE 44.3 (>32); GLUCOSE, FASTING 310 MG/DL (74-106); MAGNESIUM LEVEL 2.1 MG/DL (1.8-2.4); POTASSIUM SERUM 5.7 MMOL/L (3.5-5.1); SODIUM LEVEL 138 MMOL/L (136-145); TOTAL PROTEIN 7.1 G/DL (5.7-8.2)
[2022-11-27 15:12] LABS: OSMOLALITY SERUM 311 MOSM/KG (280-301)
[2022-11-27 15:17] LABS: HEMOGLOBIN A1c 7.8 % (4.0-6.0)
[2022-11-27 15:50] LABS: VENOUS BASE EXCESS -1.6 (-2.0-2.0); VENOUS HCO3 24.1 MMOL/L (23.0-27.0); VENOUS O2 SATURATION 89.5 % (60.0-80.0); VENOUS PARTIAL PRESSURE CO2 44.7 mmHg (38.0-50.0); VENOUS PARTIAL PRESSURE O2 61.2 mmHg (30.0-50.0); VENOUS TOTAL CO2 25.5 MMOL/L (24.0-28.0)
[2022-11-27 16:11] LABS: CALCIUM LEVEL 8.7 MG/DL (8.3-10.6); CREATININE FOR GFR 1.14 MG/DL (0.55-1.30); GLOMERULAR FILTRATION RATE 48.8 (>32); POTASSIUM SERUM 5.1 MMOL/L (3.5-5.1)
[2022-11-27] MEDS ORDERED: CEFD300C41 PO (16:37)
[2022-11-27] MEDS ORDERED: REGL10TA6 PO (16:37)
[2022-11-27 17:16] VITALS: BP 178/95; TEMP 97.3; O2SAT 95
[2022-11-27] MEDS ORDERED: CEFDINIR 300 MG CAP (OMNICEF) PO ONE (17:20)
== END 2022-11-27 17:45 | disposition home or self-care (01) ==
LOC: M ED 11:59
DX: N39.0 Urinary tract infection, site not specified (principal); E10.65 Type 1 diabetes mellitus with hyperglycemia; K31.84 Gastroparesis; I44.0 Atrioventricular block, first degree; E03.9 Hypothyroidism, unspecified; C18.9 Malignant neoplasm of colon, unspecified; Z88.2 Allergy status to sulfonamides; Z88.8 Allergy status to other drugs, medicaments and biological substances; Z79.52 Long term (current) use of systemic steroids; Z79.899 Other long term (current) drug therapy

== ENCOUNTER → 2022-12-24 | Outpatient (CLI) | payer MEDICARE, BC ==
[~2022-12-24] MED LIST changes: +CEFD300C41 PO; +REGL10TA6 PO
== END ==
LOC: M RAD 12-23 16:17
PROVIDERS: ATTEND Internal Medicine Hematology & Oncology
DX: C18.8 Malignant neoplasm of overlapping sites of colon (principal); M79.662 Pain in left lower leg

== ENCOUNTER → 2023-02-02 | Outpatient (CLI) | payer MEDICARE, BC ==
[~2023-02-02] MED LIST changes: +CEPH500C PO; +GASTROGRAFIN SOLUTION 30ML As Ordered ONE; +ISOVUE-370 76% 100ML VIAL As Ordered ONE; +LOTR1CRE12 TOP
== END ==
LOC: M RAD 13:26
PROVIDERS: ATTEND Internal Medicine Medical Oncology
DX: C18.7 Malignant neoplasm of sigmoid colon (principal); N26.1 Atrophy of kidney (terminal); K43.9 Ventral hernia without obstruction or gangrene
CPT/HCPCS: 71250; 74176; Q9963

== ENCOUNTER → 2023-05-07 | Outpatient (REF) | payer MEDICARE, BC ==
[~2023-05-07] MED LIST changes: +CEFD1CAP9 PO; -CEFD300C41 PO; -GASTROGRAFIN SOLUTION 30ML As Ordered ONE; -ISOVUE-370 76% 100ML VIAL As Ordered ONE; +NITR-67 PO; -OXYB5TAB10 PO; +OXYB5TAB11 PO
[2023-05-07 18:01] LABS: APPEARANCE, URINE HAZY (CLEAR); BACTERIA, URINE AUTO NEGATIVE (NEGATIVE); BILIRUBIN, URINE AUTO NEGATIVE (NEGATIVE); BLOOD, URINE BLOOD NEGATIVE (NEGATIVE); COLOR, URINE YELLOW (YELLOW); GLUCOSE, URINE (UA) AUTO NEGATIVE (NEGATIVE); KETONE, URINE AUTO NEGATIVE (NEGATIVE); LEUKOCYTE ESTERASE, URINE AUTO 3+ (NEGATIVE); NITRITE, URINE AUTO NEGATIVE (NEGATIVE); PROTEIN, URINE AUTO NEGATIVE (NEGATIVE); RBC, URINE AUTO 0 /HPF (0-3); SPECIFIC GRAVITY URINE AUTO 1.014 (1.002-1.035); SQUAMOUS EPITHELIAL CELL UR AU 6 /HPF (0-6); UROBILINOGEN, URINE AUTO 0.2 mg/dL (0.0-2.0); WBC, URINE AUTO 165 /HPF (0-3)
== END ==
LOC: M SMT 17:10
PROVIDERS: ATTEND Urology
DX: N39.0 Urinary tract infection, site not specified (principal)

== ENCOUNTER 2023-06-28 19:56 | Emergency (ER) | payer BC, MEDICARE ==
[2023-06-28 19:56] VITALS: BP 141/78; TEMP 98.6; O2SAT 96
[~2023-06-28 19:56] MED LIST changes: +HYDR-3363 PO; +MONI1CRE2 PV; +PRED50TA PO
[2023-06-30] MEDS ORDERED: LEVO1TAB39 PO (11:36)
== END 2023-06-28 22:31 | disposition left against medical advice (07) ==
LOC: M ED 19:56
DX: Z53.21 Procedure and treatment not carried out due to patient leaving prior to being seen by health care provider (principal)

== ENCOUNTER → 2023-08-17 | Outpatient (CLI) | payer MEDICARE, BC, MEDICAID ==
[~2023-08-17] MED LIST changes: +FERR325T3 PO; +LEVO1TAB39 PO; +LEVO25TA5 PO; -OXYB5TAB11 PO; +OXYB5TAB14 PO
== END ==
LOC: M RAD 14:33
PROVIDERS: ATTEND Internal Medicine Medical Oncology
DX: C18.7 Malignant neoplasm of sigmoid colon (principal)

== ENCOUNTER → 2023-12-09 | Outpatient (REF) | payer MEDICARE, BC | LOC: M LAB REF 15:33 | PROVIDERS: ATTEND Internal Medicine Medical Oncology | DX: B96.20 Unspecified Escherichia coli [E. coli] as the cause of diseases classified elsewhere (principal); R19.7 Diarrhea, unspecified ==

== ENCOUNTER → 2024-02-08 | Outpatient (CLI) | payer MEDICARE, BC ==
[~2024-02-08] MED LIST changes: +LEVO200C PO; +PRED10TA2 PO
== END ==
LOC: M RAD 11:13
PROVIDERS: ATTEND Internal Medicine Medical Oncology
DX: C18.9 Malignant neoplasm of colon, unspecified (principal)

== ENCOUNTER → 2024-02-23 | Outpatient (CLI) | payer MEDICARE, BC ==
[~2024-02-23] MED LIST changes: -KEYT1INJ IV; +PEMB100V2 IV
[2024-02-23 15:34] LABS: BASO % 0.4 % (0.0-1.0); EOS # 1.3 10^3/uL (0.0-0.5); EOS % 15.6 % (0.0-3.0); HEMATOCRIT 36.2 % (36.0-47.0); HEMOGLOBIN 11.3 g/dl (12.0-15.5); LYMPH # 1.2 10^3/uL (1.5-5.0); MEAN CORPUSCULAR HEMOGLOBIN 30.8 pg (27.0-33.0); MEAN CORPUSCULAR HGB CONC 31.2 g/dl (32.0-36.5); MEAN CORPUSCULAR VOLUME 98.6 fl (80.0-96.0); MONO # 0.5 10^3/uL (0.0-0.8); MONO % 6.6 % (2.0-8.0); PLATELET COUNT, AUTOMATED 203 10^3/uL (150-450); RED BLOOD COUNT 3.67 10^6/uL (4.00-5.40); WHITE BLOOD COUNT 8.1 10^3/uL (4.0-10.0)
[2024-02-23 15:51] LABS: HEMOGLOBIN A1c 6.7 % (4.0-6.0)
[2024-02-23 16:04] LABS: C REACTIVE PROTEIN QUANTITATIV < 0.40 MG/DL (<1.0); CREATININE, URINE 78.1 MG/DL; MAU/CREAT RATIO 19.2 MCG/MG (0.0-30.0)
[2024-02-23 16:06] LABS: ALBUMIN 3.4 G/DL (3.2-5.2); ALKALINE PHOSPHATASE 62 U/L (46-116); ALT/SGPT 9 U/L (7.0-40); AST/SGOT < 8 U/L (<34); BILIRUBIN,TOTAL 0.3 MG/DL (0.3-1.2); BLOOD UREA NITROGEN 43 MG/DL (9-23); CALCIUM LEVEL 8.6 MG/DL (8.3-10.6); CARBON DIOXIDE LEVEL 25 MMOL/L (20-31); CHLORIDE LEVEL 108 MMOL/L (98-107); CHOLESTEROL LEVEL 181 MG/DL (<200); CHOLESTEROL RISK RATIO 3.62 (<5); CREATININE FOR GFR 1.54 MG/DL (0.55-1.30); GLOMERULAR FILTRATION RATE 34.4 (>32); GLUCOSE, FASTING 249 MG/DL (74-106); HDL CHOLESTEROL 49.9 MG/DL (>40); LDL CHOLESTEROL 110.3 MG/DL (<100); NON-HDL-C 131.1 MG/DL; POTASSIUM SERUM 5.5 MMOL/L (3.5-5.1); SODIUM LEVEL 137 MMOL/L (136-145); TOTAL PROTEIN 6.9 G/DL (5.7-8.2); TRIGLYCERIDES LEVEL 104 MG/DL (<150)
[2024-02-23 16:09] LABS: FREE T4 0.88 NG/DL (0.89-1.76); THYROID STIMULATING HORMONE 11.331 uIU/ML (0.55-4.78); VITAMIN B12 LEVEL 342 PG/ML (211-911)
[2024-02-23 16:10] LABS: TOTAL 25(OH) VITAMIN D 19.4 NG/ML (20.0-100.0)
== END ==
LOC: M PLALAB 12:23
PROVIDERS: ATTEND Internal Medicine Hematology
DX: N18.32 Chronic kidney disease, stage 3b (principal); E03.9 Hypothyroidism, unspecified; E10.9 Type 1 diabetes mellitus without complications

== ENCOUNTER → 2024-03-01 | Outpatient (CLI) | payer MEDICARE, BC | LOC: M PLALAB 12:00 | PROVIDERS: ATTEND Internal Medicine Hematology | DX: E78.5 Hyperlipidemia, unspecified (principal) ==

== ENCOUNTER → 2024-03-09 | Outpatient (REF) | payer MEDICARE, BC ==
[~2024-03-09] MED LIST changes: +AZIT500T5 PO; +LEVO150T7 PO
== END ==
LOC: M LAB REF 14:50
PROVIDERS: ATTEND Internal Medicine Endocrinology, Diabetes & Metabolism
DX: R19.7 Diarrhea, unspecified (principal)

== ENCOUNTER → 2024-03-09 | Outpatient (REF) | payer MEDICARE, BC | LOC: M LAB REF 14:49 | PROVIDERS: ATTEND Internal Medicine Medical Oncology | DX: C18.9 Malignant neoplasm of colon, unspecified (principal) ==

== ENCOUNTER → 2024-06-30 | Outpatient (CLI) | payer MEDICARE, BC ==
[~2024-06-30] MED LIST changes: +ISOVUE-370 76% 100ML VIAL As Ordered ONE
== END ==
LOC: M RAD 14:26
PROVIDERS: ATTEND Nurse Practitioner Women's Health
DX: C18.9 Malignant neoplasm of colon, unspecified (principal)
CPT/HCPCS: 71260; 74177; Q9967

== ENCOUNTER → 2024-09-27 | Outpatient (CLI) | payer MEDICARE, BC ==
[~2024-09-27] MED LIST changes: -ISOVUE-370 76% 100ML VIAL As Ordered ONE; -LEVO200C PO; +LEVO200C2 PO; -PRED50TA PO; +PRED50TA57 PO
== END ==
LOC: M PLAIMG 14:50
PROVIDERS: ATTEND Internal Medicine Medical Oncology
DX: C18.9 Malignant neoplasm of colon, unspecified (principal); R16.0 Hepatomegaly, not elsewhere classified; N26.1 Atrophy of kidney (terminal); K43.9 Ventral hernia without obstruction or gangrene; Z90.49 Acquired absence of other specified parts of digestive tract; Z98.0 Intestinal bypass and anastomosis status; I70.0 Atherosclerosis of aorta; R93.89 Abnormal findings on diagnostic imaging of other specified body structures; K44.9 Diaphragmatic hernia without obstruction or gangrene

== ENCOUNTER → 2024-12-11 | Outpatient (REF) | payer MEDICARE, BC ==
[~2024-12-11] MED LIST changes: +LANTINJ4 SC; +NOVOINJ3 SC
== END ==
LOC: M LAB REF 12:24
PROVIDERS: ATTEND Internal Medicine Medical Oncology
DX: C18.9 Malignant neoplasm of colon, unspecified (principal)

== ENCOUNTER → 2025-01-31 | Outpatient (CLI) | payer MEDICARE, BC | LOC: M RAD 13:56 | PROVIDERS: ATTEND Internal Medicine Medical Oncology | DX: C18.9 Malignant neoplasm of colon, unspecified (principal); N13.2 Hydronephrosis with renal and ureteral calculous obstruction ==

== ENCOUNTER 2025-04-01 10:02 | Observation (INO) | payer MEDICARE, BC ==
[~2025-04-01] VITALS: Ht 157.5 cm; Wt 79.5 kg
[2025-04-01 10:53] LABS: BASO # 0.0 10^3/uL (0.0-0.2); BASO % 0.7 % (0.0-1.0); EOS # 0.1 10^3/uL (0.0-0.5); EOS % 2.2 % (0.0-3.0); LYMPH # 0.6 10^3/uL (1.5-5.0); LYMPH % 10.2 % (24.0-44.0); MONO # 0.4 10^3/uL (0.0-0.8); MONO % 6.4 % (2.0-8.0); NEUTROPHILS # 4.4 10^3/uL (1.5-8.5); NEUTROPHILS % 80.3 % (36.0-66.0); PLATELET COUNT, AUTOMATED 224 10^3/uL (150-450)
[2025-04-01 11:40] LABS: ALT/SGPT 11.0 U/L (7.0-40); AST/SGOT 12.0 U/L (<34); CALCIUM LEVEL 8.5 MG/DL (8.3-10.6); CARBON DIOXIDE LEVEL 22.0 MMOL/L (20-31); CHLORIDE LEVEL 103.0 MMOL/L (98-107); CREATININE FOR GFR 1.5 MG/DL (0.55-1.30); GLOMERULAR FILTRATION RATE 34.6 (>32); POTASSIUM SERUM 6.1 MMOL/L (3.5-5.1); SODIUM LEVEL 136.0 MMOL/L (136-145)
[2025-04-01] MEDS: ONDANSETRON 4MG/2ML VIAL IV ONE (11:43)
[2025-04-01] MEDS: GASTROGRAFIN SOLUTION 30ML PO SCH (13:45)
[2025-04-01] MEDS: ACETAMINOPHEN *IV* 1,000 MG in IV 1 EA IV ONE (16:16)
[2025-04-01] MEDS ORDERED: MORPHINE 4 MG/ML 1 ML VIAL IV PRN (18:40)
[2025-04-01] MEDS ORDERED: GLUCOSE 4 GM CHEW PO PRN (18:45)
[2025-04-01] MEDS: NS (Normal Saline) 0.9% 500 ML in IV 1 EA IV SCH (18:45)
[2025-04-01] MEDS ORDERED: DEXTROSE 50% 50 ML SYRINGE IV PRN (18:45)
[2025-04-01] MEDS ORDERED: GLUCAGON INJ 1 MG VIAL SC PRN (18:45)
[2025-04-01] MEDS ORDERED: ALBUTEROL SULFATE 2.5 MG/0.5 ML INH CONCENTRATE NEB SOLN NEB PRN (18:45)
[2025-04-01] MEDS: NS (Normal Saline) 0.9% 1,000 ML IV SCH (18:54)
[2025-04-01 19:06] LABS: CALCIUM LEVEL 8.0 MG/DL (8.3-10.6); CARBON DIOXIDE LEVEL 20.0 MMOL/L (20-31); CHLORIDE LEVEL 101.0 MMOL/L (98-107); CREATININE FOR GFR 1.51 MG/DL (0.55-1.30); GLOMERULAR FILTRATION RATE 34.3 (>32); POTASSIUM SERUM 5.8 MMOL/L (3.5-5.1); SODIUM LEVEL 133.0 MMOL/L (136-145)
[2025-04-01] MEDS: ALBUTEROL SULFATE 2.5 MG/0.5 ML INH CONCENTRATE NEB SOLN NEB SCH (19:18)
[2025-04-01] MEDS: SODIUM BICARBONATE 8.4% INJ 50ML SYRINGE IV STA (20:15)
[2025-04-01] MEDS: HumuLIN R (REGULAR) INSULIN (NovoLIN R) **100 U/ML** PER UNIT IV STA (20:15)
[2025-04-01 20:46] VITALS: BP 108/55; TEMP 98.4; O2SAT 96
[2025-04-01] MEDS ORDERED: LanTUS (INSULIN GLARGINE INJ) 1 UNITS/0.01 ML SC SCH (21:00)
[2025-04-01] MEDS: LanTUS (INSULIN GLARGINE INJ) 1 UNITS/0.01 ML SC SCH (22:59)
[2025-04-01] MEDS ORDERED: ACETAMINOPHEN *IV* 1,000 MG in IV 1 EA IV PRN (23:00)
[2025-04-01] MEDS: INSULIN LISPRO (NovoLOG) PER UNIT SC SCH (23:00)
[2025-04-02 00:32] VITALS: BP 106/52; TEMP 98.1; O2SAT 92
[2025-04-02] MEDS ORDERED: ACET-683 PO (01:03)
[2025-04-02] MEDS ORDERED: HOME MED LIST COMPLETE! XX SCH (01:10)
[2025-04-02 05:05] VITALS: BP 123/58; TEMP 98.1; O2SAT 94
[2025-04-02 05:29] LABS: PLATELET COUNT, AUTOMATED 218 10^3/uL (150-450)
[2025-04-02] MEDS: HumuLIN R (REGULAR) INSULIN (NovoLIN R) **100 U/ML** PER UNIT IV STA (05:39)
[2025-04-02 05:55] LABS: CALCIUM LEVEL 7.8 MG/DL (8.3-10.6); CARBON DIOXIDE LEVEL 21.0 MMOL/L (20-31); CHLORIDE LEVEL 101.0 MMOL/L (98-107); CREATININE FOR GFR 1.75 MG/DL (0.55-1.30); GLOMERULAR FILTRATION RATE 28.7 (>32); MAGNESIUM LEVEL 2.0 MG/DL (1.8-2.4); POTASSIUM SERUM 4.6 MMOL/L (3.5-5.1); SODIUM LEVEL 135.0 MMOL/L (136-145)
[2025-04-02 06:00] LABS: ESTIMATED AVERAGE GLUCOSE 189.0 MG/DL (60-110)
[2025-04-02] MEDS ORDERED: ALBUTEROL 90 MCG/ACT 8 GM HFA INHALER INH PRN (06:05)
[2025-04-02] MEDS ORDERED: FLUTICASONE PROPIONATE 0.05% NASAL SPRAY 16 GM PRN (06:05)
[2025-04-02] MEDS: LEVOTHYROXINE 150 MCG TABLET (0.15 MG) PO SCH (06:51)
[2025-04-02] MEDS: INSULIN LISPRO (NovoLOG) PER UNIT SC SCH ×2 (07:45→07:46)
[2025-04-02] MEDS: LanTUS (INSULIN GLARGINE INJ) 1 UNITS/0.01 ML SC SCH (07:47)
[2025-04-02 08:00] VITALS: BP 134/73; TEMP 98; O2SAT 95
[2025-04-02] MEDS: MIRALAX *UNIT DOSE* 17 GM PACKET PO SCH (10:20)
[2025-04-02 12:00] VITALS: BP 124/62; TEMP 97; O2SAT 96
[2025-04-02 12:21] LABS: CALCIUM LEVEL 8.0 MG/DL (8.3-10.6); CARBON DIOXIDE LEVEL 25.0 MMOL/L (20-31); CHLORIDE LEVEL 104.0 MMOL/L (98-107); CREATININE FOR GFR 1.62 MG/DL (0.55-1.30); GLOMERULAR FILTRATION RATE 31.5 (>32); POTASSIUM SERUM 4.5 MMOL/L (3.5-5.1); SODIUM LEVEL 138.0 MMOL/L (136-145)
== END 2025-04-02 15:40 | disposition home or self-care (01) ==
LOC: EDBD 10:02 → M ED 10:02 → M ED INP 10:03 → M PCU 20:42
PROVIDERS: ADMIT Student in an Organized Health Care Education/Training Program; ATTEND Student in an Organized Health Care Education/Training Program
DX: K56.690 Other partial intestinal obstruction (principal); E10.65 Type 1 diabetes mellitus with hyperglycemia; E87.5 Hyperkalemia; I12.9 Hypertensive chronic kidney disease with stage 1 through stage 4 chronic kidney disease, or unspecified chronic kidney disease; N18.30 Chronic kidney disease, stage 3 unspecified; E03.9 Hypothyroidism, unspecified; K43.9 Ventral hernia without obstruction or gangrene; M48.00 Spinal stenosis, site unspecified; Z85.038 Personal history of other malignant neoplasm of large intestine; Z79.4 Long term (current) use of insulin; Z79.899 Other long term (current) drug therapy
CPT/HCPCS: 36415; 74021; 74176; 80048; 80076; 83036; 83605; 83690; 83735; 84132; 85025; 85027; 93005; 94640; 96361; 96374; 96375; 96376; 99285; G0378; J0134; J1815; J2405; J3010; Q9963

== ENCOUNTER → 2025-04-17 | Outpatient (CLI) | payer MEDICARE, BC ==
[~2025-04-17] MED LIST changes: +ACET-683 PO
[2025-04-17 18:31] LABS: ALT/SGPT 12.0 U/L (7.0-40); AST/SGOT 16.0 U/L (<34); CALCIUM LEVEL 8.5 MG/DL (8.3-10.6); CARBON DIOXIDE LEVEL 25.0 MMOL/L (20-31); CHLORIDE LEVEL 105.0 MMOL/L (98-107); CREATININE FOR GFR 1.34 MG/DL (0.55-1.30); GLOMERULAR FILTRATION RATE 39.6 (>32); POTASSIUM SERUM 4.8 MMOL/L (3.5-5.1); SODIUM LEVEL 141.0 MMOL/L (136-145)
[2025-04-17 18:53] LABS: ESTIMATED AVERAGE GLUCOSE 180.0 MG/DL (60-110)
== END ==
LOC: M PLALAB 14:27
PROVIDERS: ATTEND Student in an Organized Health Care Education/Training Program
DX: N18.32 Chronic kidney disease, stage 3b (principal); E10.9 Type 1 diabetes mellitus without complications

== ENCOUNTER → 2025-04-24 | Outpatient (CLI) | payer MEDICARE, BC | LOC: M RAD 15:44 | PROVIDERS: ATTEND Internal Medicine Medical Oncology | DX: R22.41 Localized swelling, mass and lump, right lower limb (principal) ==